=== PATIENT | female | born 1940 | race Caucasian/White ===

== ENCOUNTER → 2021-06-08 14:31 | Outpatient (BNVA) | payer OTHER, SELFPAY | PROVIDERS: Visit Provider Internal Medicine Cardiovascular Disease ==

== ENCOUNTER 2021-06-09 14:12 | Outpatient (REF) | payer OTHER, SELFPAY ==
[2021-06-09 14:28] LABS: MANUAL DIFF FLAG NO
[2021-06-09 14:57] LABS: Basophils Absolute Auto 0.1 X10*3/uL (0.0-0.2); Basophils Percent Auto 1.2 % (0-2); Eosinophils Absolute Auto 0.2 X10*3/uL (0.0-0.4); Eosinophils Percent Auto 3.5 % (0-4); Hematocrit 36.1 % (37-47); Hemoglobin 12.3 g/dl (12.0-16.0); Imm Gran Abs Auto 0.03 X10*3/uL (0.00-0.03); Imm Gran Pct Auto 0.6 % (0.0-0.4); Lymphocytes Absolute Auto 0.9 X10*3/uL (1.2-4.9); Lymphocytes Percent Auto 17.6 % (20-40); Mean Corpuscular HGB Conc 34.1 g/dl (31.0-35.0); Mean Corpuscular Hemoglobin 36.8 pg (27.0-33.0); Mean Corpuscular Volume 108.1 fL (80-98); Mean Platelet Volume 10.7 fL (9.4-12.3); Monocytes Absolute Auto 0.6 X10*3/uL (0.1-1.2); Monocytes Percent Auto 11.6 % (2-11); Neutrophils Absolute Auto 3.4 X10*3/uL (2.0-8.3); Neutrophils Percent Auto 65.5 % (45-73); Red Blood Count 3.34 X10*6/uL (4.20-5.50); Red Cell Distribution Width 14.2 % (11.0-16.0); White Blood Count 5.2 X10*3/uL (4.8-10.8)
[2021-06-09 14:58] LABS: Platelet Count 80 X10*3/uL (160-400)
[2021-06-09 15:02] LABS: INTERNATIONAL NORM RATIO 1.5 (0.9-1.1); Prothrombin Time 17.4 SEC (9.9-13.0)
[2021-06-09 15:05] LABS: Partial Thromboplastin Time 36.1 SEC (24.1-38.0)
[2021-06-09 15:24] LABS: Alanine Aminotransferase 32 U/L (0-31); Alkaline Phosphatase 168 U/L (39-117); Anion Gap 12 (12-20); Aspartate Amino Transferase 71 U/L (5-31); Bilirubin Total 5.5 mg/dL (0.0-1.0); Blood Urea Nitrogen 20 mg/dL (9-16); Calcium 8.7 mg/dL (8.4-10.2); Carbon Dioxide 25 mmol/L (22-29); Chloride 103 mmol/L (96-108); Estimated Glomerular Filt Rate 58; Glucose Random 79 mg/dL (60-115); Potassium 4.6 mmol/L (3.3-5.1); Sodium 135 mmol/L (135-145); Total Protein 6.2 g/dL (6.5-8.0)
[2021-06-14 16:01] VITALS: BMI 26.9
== END 2021-06-09 14:13 | disposition home or self-care (01) ==
LOC: HO.LAB 14:12
PROVIDERS: PCP Internal Medicine; Visit Provider Internal Medicine
DX: R18.8 Other ascites (principal); K74.60 Unspecified cirrhosis of liver; D69.6 Thrombocytopenia, unspecified
CPT/HCPCS: 36415; 80053; 85025; 85610; 85730

== ENCOUNTER 2021-06-16 07:35 | Day surgery (SDC) | payer OTHER, SELFPAY ==
--- NOTE | ~2021-06-16 | US_ITS ---
EXAMINATION: US ABDOMEN LIMITED CLINICAL INFORMATION: Abdominal distention. Check for ascites. COMPARISON: Previous abdominal ultrasound 2008 TECHNIQUE: Limited 4 quadrant abdominal ultrasound FINDINGS: There is a very small amount of ascites. Paracentesis was not performed. US/US abdomen limited IMPRESSION: Very small amount of ascites. Paracentesis not performed.
[2021-06-16 08:02] VITALS: BMI 26.9
--- NOTE | 2021-06-16 09:20 | HO.RADPN ---
RADIOLOGY Narrative Narrative: Very small amount of ascites. Paracentesis not performed.
== END 2021-06-16 09:42 | disposition home or self-care (01) ==
LOC: HO.SSS 07:35
PROVIDERS: PCP Internal Medicine; Visit Provider Internal Medicine
DX: R18.8 Other ascites (principal); K74.60 Unspecified cirrhosis of liver
CPT/HCPCS: 76705

== ENCOUNTER 2021-08-02 11:21 | Outpatient (REF) | payer OTHER, SELFPAY ==
--- NOTE | ~2021-08-02 | US_ITS ---
EXAMINATION: US ABDOMEN LIMITED CLINICAL INFORMATION: Ascites check. COMPARISON: None TECHNIQUE: 4 quadrant fluid check ultrasound FINDINGS: Submitted study demonstrates a moderate amount of simple ascites throughout all 4 quadrants largest in the left lower quadrant. US/US abdomen limited IMPRESSION: Moderate ascites as above.
== END 2021-08-02 11:22 | disposition home or self-care (01) ==
LOC: HO.HMGCX 11:21
PROVIDERS: PCP Internal Medicine; Visit Provider Internal Medicine
DX: R18.8 Other ascites (principal)
CPT/HCPCS: 76705

== ENCOUNTER 2021-08-18 15:12 | Outpatient (REF) | payer OTHER, SELFPAY ==
--- NOTE | ~2021-08-18 | XR_ITS ---
EXAMINATION: XR CHEST CLINICAL INFORMATION: Left chest back pain COMPARISON: None TECHNIQUE: 2 views of the chest were obtained. FINDINGS: There is nearly complete opacification of the left hemithorax likely related to large pleural effusion. Underlying mass cannot be excluded. Right hemithorax appears unremarkable. There is mild mediastinal shift to the right. No evidence of pulmonary edema. No pneumothorax. Patient status post bilateral breast implants. XR/XR chest 2V IMPRESSION: Opacification majority of the left hemithorax likely related to large pleural effusion.
== END 2021-08-18 15:13 | disposition home or self-care (01) ==
LOC: HO.XRAY 15:12
PROVIDERS: PCP Internal Medicine; Visit Provider Internal Medicine
DX: R07.89 Other chest pain (principal)
CPT/HCPCS: 71046

== ENCOUNTER 2021-08-18 18:11 | Inpatient (IN) | payer OTHER, SELFPAY ==
--- NOTE | ~2021-08-18 | XR_ITS ---
EXAMINATION: XR CHEST CLINICAL INFORMATION: Status post left thoracentesis COMPARISON: None TECHNIQUE: AP upright portable view of the chest was obtained at 12:32 PM. FINDINGS: There is moderate opacification left lung from pleural effusion and underlying atelectasis. No visible pneumothorax seen. The right lung is expanded and clear. Heart size is normal. Pulmonary vascularity is within normal limits. There are bilateral augmented breasts with calcification of the capsule. XR/XR chest 1V IMPRESSION: Moderate left pleural effusion with underlying atelectasis. There is no visible pneumothorax.
--- NOTE | ~2021-08-18 | US_ITS ---
EXAMINATION: ULTRASOUND GUIDANCE FOR THORACENTESIS CLINICAL INFORMATION: Left pleural effusion. COMPARISON: None TECHNIQUE: Ultrasound guidance was provided to Dr. Clay Sarkar in the ER for therapeutic and diagnostic paracentesis. FINDINGS: Ultrasound images reveal moderate to large left pleural effusion. US/US thoracentesis IMPRESSION: Moderate to large left pleural effusion. Ultrasound guidance was provided to ICU Dr. Sarkar for diagnostic and therapeutic left thoracentesis in the ED department. Approximately 1.8 L of dark red fluid was drained.
--- NOTE | ~2021-08-18 | CT_ITS ---
EXAMINATION: CT CHEST WITHOUT CONTRAST CLINICAL INFORMATION: Pleural effusion. Concern for chest mass. COMPARISON: Chest x-ray 08/18/2021 TECHNIQUE: Multidetector volumetric CT imaging of the chest was done. Axial MIP volume rendering provided. Sagittal and coronal reformatted images were obtained. This CT examination was performed using dose optimization techniques as appropriate, variously including the following: *Automated exposure control *Adjustment of mA and/or kV according to patient size (this includes techniques or standardized protocols for targeted exams where dose is matched to indication/reason for exam; i.e. extremities or head) *Use of iterative reconstruction technique DLP: 278 mGy-cm FINDINGS: LUNGS: There is near complete atelectasis of left lung. There is a small region of aeration remaining at the left lung apex. The lung is collapsed around the left roe. Assessment of a left hilar mass therefore is limited without IV contrast.. No obvious mass seen in the left hilum The right lung remains normally aerated MEDIASTINUM: No mediastinal mass or significant lymphadenopathy. The heart size is normal. No pericardial effusion. Small volume of coronary artery calcifications. No aneurysm of aorta. Moderate volume of calcifications of aorta and origin of great vessels. PLEURA: Large volume left pleural effusion. There is no right pleural effusion. AXILLA: No lymphadenopathy. Bilateral breast implants present. UPPER ABDOMEN: Large volume of abdominal ascites. The surface of liver is mildly nodular suggesting underlying cirrhosis. OSSEOUS STRUCTURES: Multilevel degenerative spondylosis of the spine. CT/CT chest wo con IMPRESSION: 1. Near-complete atelectasis of the left lung. No obvious mass seen. Limited assessment of roe due to no IV contrast use. 2. Large volume left pleural effusion. 3. Large volume of abdominal ascites. Nodular contour of liver suggesting underlying cirrhosis. Fleischner guidelines were followed.
[2021-08-18 18:30] VITALS: BP 160/68; BP 165/73; PULSE 130; PULSE 83; RESP 16; TEMP 37; O2SAT 97; BMI 29.9
--- NOTE | 2021-08-18 18:38 | ECG_ITS ---
Test Reason : Dyspnea Blood Pressure : / mmHG Vent. Rate : 078 BPM Atrial Rate : 078 BPM P-R Int : 156 ms QRS Dur : 078 ms QT Int : 374 ms P-R-T Axes : 056 006 041 degrees QTc Int : 426 ms Normal sinus rhythm Normal ECG When compared with ECG of 16-FEB-2002 13:25, No significant change was found Referred By: Pushpa Parker Electronically Signed By:JESSE ORANTES MD
--- NOTE | 2021-08-18 19:24 | ED_ITS ---
HPI - SOB/Dyspnea General Chief Complaint: Dyspnea <RONI Metzger - Last Filed: 08/18/21 23:16> Stated Complaint: pleural effusion <RONI Metzger Last Filed: 08/18/21 23:16> Time Seen by Provider: 08/18/21 18:15 <RONI Metzger - Last Filed: 08/18/21 23:16> Source: patient and EMS <RONI Metzger - Last Filed: 08/18/21 23:16> Mode of arrival: EMS <RONI Metzger - Last Filed: 08/18/21 23:16> History of Present Illness HPI Narrative: 81-year-old female with a past medical history of aortic stenosis, cirrhosis, ascites s/p multiple paracentesis', IBS, presenting to the ED sent in from PCPs office for noted left-sided pleural effusion on outpatient CXR today. Patient reports left-sided chest wall pain and SOB x2 weeks. Also reports increasing abdominal distension x3 weeks, scheduled for outpatient paracentesis here at agency on Saturday. Reports abdominal discomfort and diarrhea Denies fever, chills, vomiting, dysuria/hematuria <RONI Metzger - Last Filed: 08/18/21 23:16> MD elicited complaint: shortness of breath, cough and pain with inspiration <RONI Metzger - Last Filed: 08/18/21 23:16> Onset (ago): week(s) <RONI Metzger - Last Filed: 08/18/21 23:16> Related Data Home Medications: Home Medications Medication Instructions Recorded Confirmed furosemide 40 mg tablet 40 mg PO DAILY 06/08/21 08/18/21 lactulose 10 gram/15 mL oral 15 ml PO TID 06/13/21 08/18/21 solution alprazolam 0.25 mg tablet 0.25 mg PO DAILY PRN 06/14/21 08/18/21 multivitamin 1 tab PO DAILY 06/14/21 08/18/21 acetaminophen 500 mg tablet 500 mg PO Q6H PRN 08/18/21 08/18/21 hydroxyzine HCl 25 mg tablet 1 tab PO TID PRN 08/18/21 08/18/21 spironolactone 100 mg tablet 1 tab PO DAILY 08/18/21 08/18/21 vitamin B complex 1 tab PO DAILY 08/18/21 08/18/21 <RONI Metzger - Last Filed: 08/18/21 23:16> Allergies/Adverse Reactions: Allergies Allergy/AdvReac Type Severity Reaction Status Date / Time latex Allergy Intermediate Unknown Verified 06/16/21 08:01 <RONI Metzger - Last Filed: 08/18/21 23:16> Review of Systems Review of Systems: Constitutional: No Fever, No Chills, No Fatigue, No Malaise ENT/Mouth: No Ear Pain, No Nasal Congestion, No sore throat, No Rhinorrhea, No Swallowing Difficulty Eyes: No Eye Pain, No Swelling, No Redness, No Discharge Cardiovascular: +Chest Pain, +SOB, No Dyspnea on Exertion, No Orthopnea, No Edema, No Palpitations Respiratory: + Cough, No Sputum, + Dyspnea Gastrointestinal: No Nausea, No Vomiting, No Diarrhea, No Constipation, + Abdominal pain Genitourinary: No Dysuria, No Urinary Frequency, No Hematuria, No Flank Pain Musculoskeletal: No joint pain, No Myalgias, No Joint Swelling Skin: No Skin Lesions, No rash Neuro: No Weakness, No Dizziness, No Headache <RONI Metzger - Last Filed: 08/18/21 23:16> Yes all other systems are reviewed and are negative <RONI Metzger - Last Filed: 08/18/21 23:16> [facility] Past Medical History Attestation statement: The following information was validated with the patient. <RONI Metzger - Last Filed: 08/18/21 23:16> Medical History: Medical History (Updated 08/18/21 @ 21:22 by RONI Metzger) Aortic stenosis Cirrhosis Irritable bowel <RONI Metzger - Last Filed: 08/18/21 23:16> Surgical History: Surgical History History of colonoscopy <RONI Metzger Last Filed: 08/18/21 23:16> Family History Family History: Family History Sister CAD (coronary artery disease) <RONI Metzger Last Filed: 08/18/21 23:16> Social History Social History: Social History Patient Tobacco Use Status: Never used Tobacco Advance Directives: No <RONI Metzger - Last Filed: 08/18/21 23:16> Physical Exam Vital Signs: Vital Signs: Last Vital Signs Temp 98.6 F 08/18/21 18:30 Pulse 83 08/18/21 18:30 Resp 16 08/18/21 18:30 BP 160/68 H 08/18/21 18:30 Pulse Ox 97 08/18/21 18:30 Oxygen Flow Rate 2 08/18/21 18:30 BMI result Body Mass Index 29.9 <RONI Metzger - Last Filed: 08/18/21 23:16> Vital Signs: Last Vital Signs Temp 98.6 F 08/18/21 18:30 Pulse 83 08/18/21 18:30 Resp 16 08/18/21 18:30 BP 160/68 H 08/18/21 18:30 Pulse Ox 97 08/18/21 18:30 Oxygen Flow Rate 2 08/18/21 18:30 BMI result Body Mass Index 29.9 <Elvia Carver MD - Last Filed: 08/18/21 22:59> Const: General: cooperative and no acute distress <RONI Metzger - Last Filed: 08/18/21 23:16> Orientation/consciousness: patient oriented x3 <RONI Metzger - Last Filed: 08/18/21 23:16> Limitations: no limitations <RONI Metzger - Last Filed: 08/18/21 23:16> HENMT: Head: Yes normal to inspection <RONI Metzger - Last Filed: 08/18/21 23:16> Ears: hearing grossly normal bilaterally <RONI Metzger - Last Filed: 08/18/21 23:16> General nose exam: Normal external nose present <RONI Metzger - Last Filed: 08/18/21 23:16> Face and sinus: Yes normal facial exam <RONI Metzger - Last Filed: 08/18/21 23:16> Eyes: General: appearance normal, both eyes and all related structures <RONI Metzger - Last Filed: 08/18/21 23:16> EOM: EOMs intact bilaterally <Pushpa Keith [place] - Last Filed: 08/18/21 23:16> Neck: Neck: Yes normal visual inspection and Yes no meningeal signs <Pushpa Keith [place] - Last Filed: 08/18/21 23:16> Resp: Auscultation: diminished lung sounds on the left throughout <Pushpa Parker [place] - Last Filed: 08/18/21 23:16> Cardio: Rate: regular rate <Pushpa Keith [place] - Last Filed: 08/18/21 23:16> Heart sounds: S1 normal heart sound present and S2 normal heart sound present <Pushpa Parker [place] - Last Filed: 08/18/21 23:16> GI: Other: +ascites <Pushpa Keith [place] - Last Filed: 08/18/21 23:16> Inspection: Yes normal to inspection <Pushpa Parker [place] - Last Filed: 08/18/21 23:16> Palpation (GI): Soft to palpation, nontender, no guarding and not rigid < Pushpa Keith [place] - Last Filed: 08/18/21 23:16> Skin: Rashes: no rashes <Pushpa Parker [place] - Last Filed: 08/18/21 23:16> Wounds: no wounds <Pushpa Keith [place] - Last Filed: 08/18/21 23:16> Neuro: General: patient oriented x3 and no meningeal signs <Pushpa Parker [place] - Last Filed: 08/18/21 23:16> Gait exam (Neuro): Normal gait present <Pushpa Parker [place] - Last Filed: 08/18/21 23:16> Extrem: General: Yes normal to inspection <Pushpa Parker [place] - Last Filed: 08/18/21 23:16> Course Course Course Narrative: -2026--mild leukocytosis of 12.2 > will empirically cover for possible PNA. H&H stable. INR 1.5. BUN 28 likely from fluid overload. Lactic acid negative, patient does not meet severe sepsis criteria -bilirubin/AST/alk-phos is chronically elevated. Troponin mildly elevated at 5.5 > will obtain 3 hour repeat XR chest 2V IMPRESSION: Opacification majority of the left hemithorax likely related to large pleural effusion. -2057--case discussed with hospitalist, plan for admission. Prior to admission will perform therapeutic paracentesis in the ED 2150-- CT chest wo con IMPRESSION: 1. Near-complete atelectasis of the left lung. No obvious mass seen. Limited assessment of roe due to no IV contrast use. 2. Large volume left pleural effusion. 3. Large volume of abdominal ascites. Nodular contour of liver suggesting underlying cirrhosis. -2314--paracentesis performed by Dr. Carver. 2,800 cc peritoneal fluid drained. Sent for studies <RONI Metzger - Last Filed: 08/18/21 23:16> MDM - SOB/Dyspnea MDM Narrative Medical decision making narrative: 81-year-old female with a past medical history of aortic stenosis, cirrhosis, ascites s/p multiple paracentesis', IBS, presenting to the ED sent in from PCPs office for noted left-sided pleural effusion on outpatient CXR today. Patient reports left-sided chest wall pain and SOB x2 weeks & abdominal distension x3 weeks. On exam satting 94% on RA increased to 97% on 2L NC, NAD, diminished/absent lung sounds in the left lung field, abdominal ascites noted, abdomen soft/nontender, no rebound or guarding. No LE edema. 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 Low concern for SBP with abdomen soft and nontender. Rule out underlying mass/lesion vs pneumonia. low concern for severe sepsis at this time Plan: EKG, labs, UA, dry CT chest, anticipated admission <RONI Metzger - Last Filed: 08/18/21 23:16> Differential Diagnosis Differential diagnosis: Likely congestive heart failure, pneumonia and pleural effusion <RONI Metzger - Last Filed: 08/18/21 23:16> Medical Records Attestation: I reviewed the patient's medical records. <RONI Metzger - Last Filed: 08/18/21 23:16> Lab Data Attestation: I reviewed the patient's lab results. <RONI Metzger - Last Filed: 08/18/21 23:16> Result diagrams: : 08/18/21 19:15 08/18/21 19:15 <RONI Metzger - Last Filed: 08/18/21 23:16> Labs: Lab Results 08/18/21 08/18/21 08/18/21 Range/Units 19:15 19:15 19:15 WBC 12.2 H (4.8-10.8) X10*3/uL RBC 3.41 L (4.20-5.50) X10*6/uL Hgb 12.4 (12.0-16.0) g/dl Hct 35.8 L (37.0-47.0) % MCV 105.0 H (80.0-98.0) fL MCH 36.4 H (27.0-33.0) pg MCHC 34.6 (31.0-35.0) g/dl RDW 14.6 (11.0-16.0) % Plt Count 138 L (160-400) X10*3/uL MPV 9.6 (9.4-12.3) fL Immature Gran % (Auto) 1.9 H (0.0-0.4) % Neut % (Auto) 69.0 (45-73) % Lymph % (Auto) 9.6 L (20-40) % Stafford % (Auto) 17.8 H (2-11) % Eos % (Auto) 1.0 (0-4) % Baso % (Auto) 0.7 (0-2) % Lymph # (Auto) 1.2 (1.2-4.9) X10*3/uL Stafford # (Auto) 2.2 H (0.1-1.2) X10*3/uL Eos # (Auto) 0.1 (0.0-0.4) X10*3/uL Baso # (Auto) 0.1 (0.0-0.2) X10*3/uL Abs Immat Gran (auto) 0.23 H (0.00-0.03) X10*3/uL Absolute Neuts (auto) 8.4 H (2.0-8.3) x10*3/uL Absolute Nucleated RBC 0.000 (0.0-0.012) X10*3/uL Nucleated RBC % (auto) 0.0 (0.0-0.2) /100WBC Smear Tech's Comments VERIFIED PT (9.9-13.0) SEC INR (0.9-1.1) APTT (24.1-38.0) SEC Sodium 132 L (135-145) mmol/L Potassium 4.9 (3.3-5.1) mmol/L Chloride 104 (96-108) mmol/L Carbon Dioxide 21 L (22-29) mmol/L Anion Gap 12 (12-20) BUN 28 H (9-16) mg/dL Creatinine 1.17 (0.5-1.4) mg/dL Estim Creat Clear Calc 37.6 Estimated GFR 45 Random Glucose 104 (60-115) mg/dL Lactic Acid (0.5-2.0) mmol/L Calcium 8.3 L (8.4-10.2) mg/dL Magnesium 2.4 (1.6-2.6) mg/dL Total Bilirubin 6.3 H (0.0-1.0) mg/dL Direct Bilirubin 4.0 H (0.0-0.5) mg/dL AST 40 H D (5-31) U/L ALT 25 (0-31) U/L Alkaline Phosphatase 124 H D (39-117) U/L Troponin I High Sens 5.5 (<3.5-17.0) ng/L B-Natriuretic Peptide (<100) pg/mL Total Protein 6.1 L (6.5-8.0) g/dL Albumin 2.7 L (3.5-5.0) g/dL Lipase 34 (8-78) U/L COVID-19 (KAYLI) (Negative) COVID-19 Clin Com 08/18/21 08/18/21 08/18/21 Range/Units 19:15 19:15 19:15 WBC (4.8-10.8) X10*3/uL RBC (4.20-5.50) X10*6/uL Hgb (12.0-16.0) g/dl Hct (37.0-47.0) % MCV (80.0-98.0) fL MCH (27.0-33.0) pg MCHC (31.0-35.0) g/dl RDW (11.0-16.0) % Plt Count (160-400) X10*3/uL MPV (9.4-12.3) fL Immature Gran % (Auto) (0.0-0.4) % Neut % (Auto) (45-73) % Lymph % (Auto) (20-40) % Stafford % (Auto) (2-11) % Eos % (Auto) (0-4) % Baso % (Auto) (0-2) % Lymph # (Auto) (1.2-4.9) X10*3/uL Stafford # (Auto) (0.1-1.2) X10*3/uL Eos # (Auto) (0.0-0.4) X10*3/uL Baso # (Auto) (0.0-0.2) X10*3/uL Abs Immat Gran (auto) (0.00-0.03) X10*3/uL Absolute Neuts (auto) (2.0-8.3) x10*3/uL Absolute Nucleated RBC (0.0-0.012) X10*3/uL Nucleated RBC % (auto) (0.0-0.2) /100WBC Smear Tech's Comments PT 17.4 H (9.9-13.0) SEC INR 1.5 H (0.9-1.1) APTT 36.9 (24.1-38.0) SEC Sodium (135-145) mmol/L Potassium (3.3-5.1) mmol/L Chloride (96-108) mmol/L Carbon Dioxide (22-29) mmol/L Anion Gap (12-20) BUN (9-16) mg/dL Creatinine (0.5-1.4) mg/dL Estim Creat Clear Calc Estimated GFR Random Glucose (60-115) mg/dL Lactic Acid (0.5-2.0) mmol/L Calcium (8.4-10.2) mg/dL Magnesium (1.6-2.6) mg/dL Total Bilirubin (0.0-1.0) mg/dL Direct Bilirubin (0.0-0.5) mg/dL AST (5-31) U/L ALT (0-31) U/L Alkaline Phosphatase (39-117) U/L Troponin I High Sens (<3.5-17.0) ng/L B-Natriuretic Peptide 81 (<100) pg/mL Total Protein (6.5-8.0) g/dL Albumin (3.5-5.0) g/dL Lipase (8-78) U/L COVID-19 (KAYLI) Negative (Negative) COVID-19 Clin Com See Note 08/18/21 Range/Units 19:47 WBC (4.8-10.8) X10*3/uL RBC (4.20-5.50) X10*6/uL Hgb (12.0-16.0) g/dl Hct (37.0-47.0) % MCV (80.0-98.0) fL MCH (27.0-33.0) pg MCHC (31.0-35.0) g/dl RDW (11.0-16.0) % Plt Count (160-400) X10*3/uL MPV (9.4-12.3) fL Immature Gran % (Auto) (0.0-0.4) % Neut % (Auto) (45-73) % Lymph % (Auto) (20-40) % Stafford % (Auto) (2-11) % Eos % (Auto) (0-4) % Baso % (Auto) (0-2) % Lymph # (Auto) (1.2-4.9) X10*3/uL Stafford # (Auto) (0.1-1.2) X10*3/uL Eos # (Auto) (0.0-0.4) X10*3/uL Baso # (Auto) (0.0-0.2) X10*3/uL Abs Immat Gran (auto) (0.00-0.03) X10*3/uL Absolute Neuts (auto) (2.0-8.3) x10*3/uL Absolute Nucleated RBC (0.0-0.012) X10*3/uL Nucleated RBC % (auto) (0.0-0.2) /100WBC Smear Tech's Comments PT (9.9-13.0) SEC INR (0.9-1.1) APTT (24.1-38.0) SEC Sodium (135-145) mmol/L Potassium (3.3-5.1) mmol/L Chloride (96-108) mmol/L Carbon Dioxide (22-29) mmol/L Anion Gap (12-20) BUN (9-16) mg/dL Creatinine (0.5-1.4) mg/dL Estim Creat Clear Calc Estimated GFR Random Glucose (60-115) mg/dL Lactic Acid 1.8 (0.5-2.0) mmol/L Calcium (8.4-10.2) mg/dL Magnesium (1.6-2.6) mg/dL Total Bilirubin (0.0-1.0) mg/dL Direct Bilirubin (0.0-0.5) mg/dL AST (5-31) U/L ALT (0-31) U/L Alkaline Phosphatase (39-117) U/L Troponin I High Sens (<3.5-17.0) ng/L B-Natriuretic Peptide (<100) pg/mL Total Protein (6.5-8.0) g/dL Albumin (3.5-5.0) g/dL Lipase (8-78) U/L COVID-19 (KAYLI) (Negative) COVID-19 Clin Com <RONI Metzger - Last Filed: 08/18/21 23:16> Lab Results 08/18/21 08/18/21 08/18/21 Range/Units 19:15 19:15 19:15 WBC 12.2 H (4.8-10.8) X10*3/uL RBC 3.41 L (4.20-5.50) X10*6/uL Hgb 12.4 (12.0-16.0) g/dl Hct 35.8 L (37.0-47.0) % MCV 105.0 H (80.0-98.0) fL MCH 36.4 H (27.0-33.0) pg MCHC 34.6 (31.0-35.0) g/dl RDW 14.6 (11.0-16.0) % Plt Count 138 L (160-400) X10*3/uL MPV 9.6 (9.4-12.3) fL Immature Gran % (Auto) 1.9 H (0.0-0.4) % Neut % (Auto) 69.0 (45-73) % Lymph % (Auto) 9.6 L (20-40) % Stafford % (Auto) 17.8 H (2-11) % Eos % (Auto) 1.0 (0-4) % Baso % (Auto) 0.7 (0-2) % Lymph # (Auto) 1.2 (1.2-4.9) X10*3/uL Stafford # (Auto) 2.2 H (0.1-1.2) X10*3/uL Eos # (Auto) 0.1 (0.0-0.4) X10*3/uL Baso # (Auto) 0.1 (0.0-0.2) X10*3/uL Abs Immat Gran (auto) 0.23 H (0.00-0.03) X10*3/uL Absolute Neuts (auto) 8.4 H (2.0-8.3) x10*3/uL Absolute Nucleated RBC 0.000 (0.0-0.012) X10*3/uL Nucleated RBC % (auto) 0.0 (0.0-0.2) /100WBC Smear Tech's Comments VERIFIED PT (9.9-13.0) SEC INR (0.9-1.1) APTT (24.1-38.0) SEC Sodium 132 L (135-145) mmol/L Potassium 4.9 (3.3-5.1) mmol/L Chloride 104 (96-108) mmol/L Carbon Dioxide 21 L (22-29) mmol/L Anion Gap 12 (12-20) BUN 28 H (9-16) mg/dL Creatinine 1.17 (0.5-1.4) mg/dL Estim Creat Clear Calc 37.6 Estimated GFR 45 Random Glucose 104 (60-115) mg/dL Lactic Acid (0.5-2.0) mmol/L Calcium 8.3 L (8.4-10.2) mg/dL Magnesium 2.4 (1.6-2.6) mg/dL Total Bilirubin 6.3 H (0.0-1.0) mg/dL Direct Bilirubin 4.0 H (0.0-0.5) mg/dL AST 40 H D (5-31) U/L ALT 25 (0-31) U/L Alkaline Phosphatase 124 H D (39-117) U/L Troponin I High Sens 5.5 (<3.5-17.0) ng/L B-Natriuretic Peptide (<100) pg/mL Total Protein 6.1 L (6.5-8.0) g/dL Albumin 2.7 L (3.5-5.0) g/dL Lipase 34 (8-78) U/L COVID-19 (KAYLI) (Negative) COVID-19 Clin Com 08/18/21 08/18/21 08/18/21 Range/Units 19:15 19:15 19:15 WBC (4.8-10.8) X10*3/uL RBC (4.20-5.50) X10*6/uL Hgb (12.0-16.0) g/dl Hct (37.0-47.0) % MCV (80.0-98.0) fL MCH (27.0-33.0) pg MCHC (31.0-35.0) g/dl RDW (11.0-16.0) % Plt Count (160-400) X10*3/uL MPV (9.4-12.3) fL Immature Gran % (Auto) (0.0-0.4) % Neut % (Auto) (45-73) % Lymph % (Auto) (20-40) % Stafford % (Auto) (2-11) % Eos % (Auto) (0-4) % Baso % (Auto) (0-2) % Lymph # (Auto) (1.2-4.9) X10*3/uL Stafford # (Auto) (0.1-1.2) X10*3/uL Eos # (Auto) (0.0-0.4) X10*3/uL Baso # (Auto) (0.0-0.2) X10*3/uL Abs Immat Gran (auto) (0.00-0.03) X10*3/uL Absolute Neuts (auto) (2.0-8.3) x10*3/uL Absolute Nucleated RBC (0.0-0.012) X10*3/uL Nucleated RBC % (auto) (0.0-0.2) /100WBC Smear Tech's Comments PT 17.4 H (9.9-13.0) SEC INR 1.5 H (0.9-1.1) APTT 36.9 (24.1-38.0) SEC Sodium (135-145) mmol/L Potassium (3.3-5.1) mmol/L Chloride (96-108) mmol/L Carbon Dioxide (22-29) mmol/L Anion Gap (12-20) BUN (9-16) mg/dL Creatinine (0.5-1.4) mg/dL Estim Creat Clear Calc Estimated GFR Random Glucose (60-115) mg/dL Lactic Acid (0.5-2.0) mmol/L Calcium (8.4-10.2) mg/dL Magnesium (1.6-2.6) mg/dL Total Bilirubin (0.0-1.0) mg/dL Direct Bilirubin (0.0-0.5) mg/dL AST (5-31) U/L ALT (0-31) U/L Alkaline Phosphatase (39-117) U/L Troponin I High Sens (<3.5-17.0) ng/L B-Natriuretic Peptide 81 (<100) pg/mL Total Protein (6.5-8.0) g/dL Albumin (3.5-5.0) g/dL Lipase (8-78) U/L COVID-19 (KAYLI) Negative (Negative) COVID-19 Clin Com See Note 08/18/21 Range/Units 19:47 WBC (4.8-10.8) X10*3/uL RBC (4.20-5.50) X10*6/uL Hgb (12.0-16.0) g/dl Hct (37.0-47.0) % MCV (80.0-98.0) fL MCH (27.0-33.0) pg MCHC (31.0-35.0) g/dl RDW (11.0-16.0) % Plt Count (160-400) X10*3/uL MPV (9.4-12.3) fL Immature Gran % (Auto) (0.0-0.4) % Neut % (Auto) (45-73) % Lymph % (Auto) (20-40) % Stafford % (Auto) (2-11) % Eos % (Auto) (0-4) % Baso % (Auto) (0-2) % Lymph # (Auto) (1.2-4.9) X10*3/uL Stafford # (Auto) (0.1-1.2) X10*3/uL Eos # (Auto) (0.0-0.4) X10*3/uL Baso # (Auto) (0.0-0.2) X10*3/uL Abs Immat Gran (auto) (0.00-0.03) X10*3/uL Absolute Neuts (auto) (2.0-8.3) x10*3/uL Absolute Nucleated RBC (0.0-0.012) X10*3/uL Nucleated RBC % (auto) (0.0-0.2) /100WBC Smear Tech's Comments PT (9.9-13.0) SEC INR (0.9-1.1) APTT (24.1-38.0) SEC Sodium (135-145) mmol/L Potassium (3.3-5.1) mmol/L Chloride (96-108) mmol/L Carbon Dioxide (22-29) mmol/L Anion Gap (12-20) BUN (9-16) mg/dL Creatinine (0.5-1.4) mg/dL Estim Creat Clear Calc Estimated GFR Random Glucose (60-115) mg/dL Lactic Acid 1.8 (0.5-2.0) mmol/L Calcium (8.4-10.2) mg/dL Magnesium (1.6-2.6) mg/dL Total Bilirubin (0.0-1.0) mg/dL Direct Bilirubin (0.0-0.5) mg/dL AST (5-31) U/L ALT (0-31) U/L Alkaline Phosphatase (39-117) U/L Troponin I High Sens (<3.5-17.0) ng/L B-Natriuretic Peptide (<100) pg/mL Total Protein (6.5-8.0) g/dL Albumin (3.5-5.0) g/dL Lipase (8-78) U/L COVID-19 (KAYLI) (Negative) COVID-19 Clin Com <Elvia Carver MD - Last Filed: 08/18/21 22:59> ECG Data Attestation: I personally reviewed and interpreted this ECG as follows: <RONI Metzger - Last Filed: 08/18/21 23:16> ECG interpretation date: 08/18/21 <RONI Metzger - Last Filed: 08/18/21 23:16> ECG interpretation time: 19:27 <RONI Metzger - Last Filed: 08/18/21 23:16> Interpretation: EKG normal sinus rhythm at a rate of 78. Pr interval 156. QRS 78. QTC 426. Nonischemic/no STEMI <RONI Metzger - Last Filed: 08/18/21 23:16> Procedures Paracentesis Time Out Performed: Yes <Elvia Carver MD - Last Filed: 08/18/21 22:59> Local Anesthetic: lidocaine 1% <Elvia Carver MD - Last Filed: 08/18/21 22:59> Amount of anesthesia used (mL): 5 <Elvia Carver MD - Last Filed: 08/18/21 22:59> Fluid: clear and sent to lab for analysis <Elvia Carver MD - Last Filed: 08/18/21 22:59> Post Procedure Exam: awake, alert <Elvia Carver MD - Last Filed: 08/18/21 22:59> Patient Tolerated Procedure: well <Elvia Carver MD - Last Filed: 08/18/21 22:59> Complications: none and other <Elvia Carver MD - Last Filed: 08/18/21 22:59> Critical Care Time Critical Care Time Critical Care Time: Yes <RONI Metzger - Last Filed: 08/18/21 23:16> Total Critical Care Time: 60 <RONI Metzger - Last Filed: 08/18/21 23:16> Attestation: I have personally provided critical care time exclusive of time spent on separately billable procedures. Time includes review of lab data, radiology results, discussion with consultants, and monitoring for potential decompens ation. Intervention performed as documented. <ORNI Metzger - Last Filed: 08/18/21 23:16> Discharge Plan Discharge Clinical Impression: Pleural effusion Ascites Qualifiers: Ascites type: other type Qualified Code(s): R18.8 - Other ascites <RONI Metzger - Last Filed: 08/18/21 23:16> Patient Disposition: Admitted As Inpatient <RONI Metzger - Last Filed: 08/18/21 23:16>
[2021-08-18 19:44] LABS: Basophils Absolute Auto 0.1 X10*3/uL (0.0-0.2); Basophils Percent Auto 0.7 % (0-2); Eosinophils Absolute Auto 0.1 X10*3/uL (0.0-0.4); Hematocrit 35.8 % (37.0-47.0); Hemoglobin 12.4 g/dl (12.0-16.0); Imm Gran Abs Auto 0.23 X10*3/uL (0.00-0.03); Imm Gran Pct Auto 1.9 % (0.0-0.4); Lymphocytes Absolute Auto 1.2 X10*3/uL (1.2-4.9); Lymphocytes Percent Auto 9.6 % (20-40); MANUAL DIFF FLAG SCAN; Mean Corpuscular HGB Conc 34.6 g/dl (31.0-35.0); Mean Corpuscular Hemoglobin 36.4 pg (27.0-33.0); Mean Platelet Volume 9.6 fL (9.4-12.3); Monocytes Absolute Auto 2.2 X10*3/uL (0.1-1.2); Monocytes Percent Auto 17.8 % (2-11); Neutrophils Absolute Auto 8.4 x10*3/uL (2.0-8.3); Platelet Count 138 X10*3/uL (160-400); Red Blood Count 3.41 X10*6/uL (4.20-5.50); Red Cell Distribution Width 14.6 % (11.0-16.0); SCAN SMEAR FLAG 1; White Blood Count 12.2 X10*3/uL (4.8-10.8)
[2021-08-18 19:51] LABS: INTERNATIONAL NORM RATIO 1.5 (0.9-1.1); Prothrombin Time 17.4 SEC (9.9-13.0)
[2021-08-18 19:53] LABS: Partial Thromboplastin Time 36.9 SEC (24.1-38.0)
[2021-08-18 19:56] LABS: COVID-19 Test Negative (Negative)
[2021-08-18 20:12] LABS: Lactic Acid 1.8 mmol/L (0.5-2.0)
[2021-08-18 20:17] LABS: Alanine Aminotransferase 25 U/L (0-31); Albumin Level 2.7 g/dL (3.5-5.0); Alkaline Phosphatase 124 U/L (39-117); Anion Gap 12 (12-20); Aspartate Amino Transferase 40 U/L (5-31); Bilirubin Total 6.3 mg/dL (0.0-1.0); Blood Urea Nitrogen 28 mg/dL (9-16); Calcium 8.3 mg/dL (8.4-10.2); Carbon Dioxide 21 mmol/L (22-29); Chloride 104 mmol/L (96-108); Creatinine Clr Calc Pharmacy 37.6; Estimated Glomerular Filt Rate 45; Glucose Random 104 mg/dL (60-115); Lipase 34 U/L (8-78); Magnesium 2.4 mg/dL (1.6-2.6); Potassium 4.9 mmol/L (3.3-5.1); Sodium 132 mmol/L (135-145); Total Protein 6.1 g/dL (6.5-8.0)
[2021-08-18 20:19] LABS: Troponin-I High Sensitivity 5.5 ng/L (<3.5-17.0)
[2021-08-18 20:20] LABS: B Type Natriuretic Peptide 81 pg/mL (<100)
[2021-08-18 20:26] LABS: SLIDE REVIEW VERIFIED
--- NOTE | 2021-08-18 20:39 | PC.NURSE ---
PATIENT REFUSED SECOND SETS OF BLOOD CULTURE ,GLORY ISLAS IS AWARE .
--- NOTE | 2021-08-18 20:52 | PHA.MEDREC ---
Addendum entered by Suki Bell [facility] 08/19/21 10:05: CALLED [facility] TO VERIFY MED LIST. Original Note: Pharmacy Consult ? Medication Reconciliation Pharmacy has completed the medication reconciliation. Spoke with patient in ED. [facility] closed but will follow up in AM with pharmacy.
--- NOTE | 2021-08-18 21:01 | PM.IMHP ---
History of Present Illness Date of Service: 08/18/21 Chief Complaint: Abdominal distension 81-year-old female with a past medical history of aortic stenosis, anxiety, non alcoholic liver cirrhosis-decompensated with ascites-receives periodic therapeutic paracentesis, IBS presented to the hospital with a chief complaint of chest pain. Patient reports that she has been having chest pain over the past 2 weeks, it on the left side, worsens with deep inspiration and coughing; sharp in nature; has seen the PCP as outpatient who did a chest x-ray and noted to have large pleural effusion on the left side and recommended to go to the ER for further evaluation. Patient reports that she has been taking her diuretics at home; and has regular paracentesis; 1 scheduled on 08/21/21 at [facility]; Denies any abdominal pain Denies any fever chills. Reports cough-no sputum production. Denies any urinary symptoms. Review of all other systems is negative except mentioned above ER course: Per ER team patient noted to be saturating 92% on room air; EKG was nonischemic; diminished lung sounds on the left side; abdomen is distended and phone; planned for therapeutic paracentesis in the ER. ER team also mentioned that no concern for SBP; admitted for further management. [facility] Medical History (Updated 08/18/21 @ 21:22 by RONI Metzger) Aortic stenosis Cirrhosis Irritable bowel Family History Sister CAD (coronary artery disease) Surgical History History of colonoscopy Social History Patient Tobacco Use Status: Never used Tobacco Advance Directives: No Meds Allergies Allergy/AdvReac Type Severity Reaction Status Date / Time latex Allergy Intermediate Unknown Verified 06/16/21 08:01 Active Medications: Current Medications Piperacillin Sod/Tazobactam (Sod 3.375 gm/ Sodium Chloride) 50 mls @ 100 mls/hr IV ONCE ONE Stop: 08/18/21 21:14 Pharmacy Consult (Consult Rx Perform Med Rec) 1 each MISCELLANE ONCE PRN PRN Reason: Consult order Home Medications Medication Instructions Recorded Confirmed Last Taken Type furosemide 40 mg tablet 40 mg PO DAILY 06/08/21 08/18/2108/18/22 History lactulose 10 gram/15 mL oral 15 ml PO TID 06/13/21 08/18/21 08/18/21 History solution alprazolam 0.25 mg tablet 0.25 mg PO DAILY PRN 06/14/21 08/18/21 08/18/21 History multivitamin 1 tab PO DAILY 06/14/21 08/18/21 08/18/21 History acetaminophen 500 mg tablet 500 mg PO Q6H PRN 08/18/21 08/18/21 08/18/21 History hydroxyzine HCl 25 mg tablet 1 tab PO TID PRN 08/18/21 08/18/21 08/18/21 History spironolactone 100 mg tablet 1 tab PO DAILY 08/18/21 08/18/21 08/18/21 History vitamin B complex 1 tab PO DAILY 08/18/21 08/18/21 08/18/21 History Physical Exam Vital Signs and Narrative: Vital Signs: Last Vital Signs Temp 98.6 F 08/18/21 18:30 Pulse 83 08/18/21 18:30 Resp 16 08/18/21 18:30 BP 160/68 H 08/18/21 18:30 Pulse Ox 97 08/18/21 18:30 Oxygen Flow Rate 2 08/18/21 18:30 BMI result Body Mass Index 29.9 Gen: Appears be in no acute distress. On supplemental oxygen. Speaks in full sentences. HEENT: NCAT, Moist mucosa. Pulmonary: Diminished on the left side CVS: Normal S1-S2 Abdomen: BS+, Soft, Nontender; distended-fluid thrill present. Extremities: Warm well perfused Neuro: Alert and awake. Results Labs CBC and Chem 7: 08/18/21 19:15 08/18/21 19:15 Labs: Laboratory Results - last 24 hr 08/18/21 08/18/21 08/18/21 19:15 19:15 19:15 MCV 105.0 H MCH 36.4 H MCHC 34.6 RDW 14.6 Plt Count 138 L MPV 9.6 Immature Gran % (Auto) 1.9 H Neut % (Auto) 69.0 Lymph % (Auto) 9.6 L [place] % (Auto) 17.8 H Eos % (Auto) 1.0 Baso % (Auto) 0.7 Lymph # (Auto) 1.2 [place] # (Auto) 2.2 H Eos # (Auto) 0.1 Baso # (Auto) 0.1 Abs Immat Gran (auto) 0.23 H Absolute Neuts (auto) 8.4 H Absolute Nucleated RBC 0.000 Nucleated RBC % (auto) 0.0 Smear Tech's Comments VERIFIED PT INR APTT Anion Gap 12 Estim Creat Clear Calc 37.6 Estimated GFR 45 Random Glucose 104 Lactic Acid Calcium 8.3 L Magnesium 2.4 Total Bilirubin 6.3 H Direct Bilirubin 4.0 H AST 40 H D ALT 25 Alkaline Phosphatase 124 H D Troponin I High Sens 5.5 B-Natriuretic Peptide Total Protein 6.1 L Albumin 2.7 L Lipase 34 COVID-19 (KAYLI) COVID-19 Clin Com 08/18/21 08/18/21 08/18/21 19:15 19:15 19:15 MCV MCH MCHC RDW Plt Count MPV Immature Gran % (Auto) Neut % (Auto) Lymph % (Auto) [place] % (Auto) Eos % (Auto) Baso % (Auto) Lymph # (Auto) [place] # (Auto) Eos # (Auto) Baso # (Auto) Abs Immat Gran (auto) Absolute Neuts (auto) Absolute Nucleated RBC Nucleated RBC % (auto) Smear Tech's Comments PT 17.4 H INR 1.5 H APTT 36.9 Anion Gap Estim Creat Clear Calc Estimated GFR Random Glucose Lactic Acid Calcium Magnesium Total Bilirubin Direct Bilirubin AST ALT Alkaline Phosphatase Troponin I High Sens B-Natriuretic Peptide 81 Total Protein Albumin Lipase COVID-19 (KAYLI) Negative COVID-19 Clin Com See Note 08/18/21 19:47 MCV MCH MCHC RDW Plt Count MPV Immature Gran % (Auto) Neut % (Auto) Lymph % (Auto) [place] % (Auto) Eos % (Auto) Baso % (Auto) Lymph # (Auto) [place] # (Auto) Eos # (Auto) Baso # (Auto) Abs Immat Gran (auto) Absolute Neuts (auto) Absolute Nucleated RBC Nucleated RBC % (auto) Smear Tech's Comments PT INR APTT Anion Gap Estim Creat Clear Calc Estimated GFR Random Glucose Lactic Acid 1.8 Calcium Magnesium Total Bilirubin Direct Bilirubin AST ALT Alkaline Phosphatase Troponin I High Sens B-Natriuretic Peptide Total Protein Albumin Lipase COVID-19 (KAYLI) COVID-19 Clin Com Assessment and Plan (1) Ascites: Status: Acute (2) Pleural effusion: Status: Acute 81-year-old female with a past medical history of aortic stenosis, anxiety, non alcoholic liver cirrhosis-decompensated with ascites-receives periodic therapeutic paracentesis, IBS presented to the hospital with a chief complaint of chest pain. Noted to have ongoing conditions Chest pain: Pleuritic in nature. Likely from the large left-sided pleural effusion. Pain control. Telemetry. Large left pleural effusion: Patient is saturating 92% on room air. Placed on supplemental oxygen. Not in distress. IR follow-up for possible therapeutic pleural tap. Liver cirrhosis/ascites: Nontender abdomen. Patient received therapeutic paracentesis in ER team; removed 2800cc Fluid. Given Albuminx1. Continue home Lasix and Aldactone. History of anxiety: Continue home ulcers along/hydroxyzine. DVT prophylaxis: SCD boots Code status: Full code Quality Stroke Does the patient have a stroke diagnosis?: No VTE Prior VTE?: No VTE Risk Level:: Medical - moderate - high VTE Device Contraindication: N/A - Device Ordered VTE Drug Contraindication: Treatment Not Indicated
[2021-08-18] MEDS: Lactulose 20 GM/30 ML SOLUTION 10 GM PO (22:00)
[2021-08-18 22:27] LABS: Ammonia 48 umol/L (13-55)
[2021-08-18 22:38] LABS: Troponin-I High Sensitivity 5.8 ng/L (<3.5-17.0)
[2021-08-18 23:27] VITALS: BP 204/84; PULSE 78; RESP 16; O2SAT 97
[2021-08-18 23:36] LABS: MN% 95.2 %; PMN% 4.8 %; WBC Peritoneal Fluid 0.363 X10*3/uL
[2021-08-18] MEDS: Piperacillin Sodium/Tazobactam 3.375 GM in 0.9 % Sodium Chloride 50 ML IV (23:52)
[2021-08-18 23:53] VITALS: BP 132/62; PULSE 76; RESP 16; TEMP 36.4; O2SAT 97
[2021-08-18] MEDS: Lidocaine HCl 2 % MPF 5 ML VIAL INFILTRATI (23:53)
[2021-08-18 23:55] LABS: RBC Peritoneal Fluid < 0.002 X10*6/uL
[2021-08-19] VITALS (8 sets, daily range): BP systolic 110–141; BP diastolic 48–63; PULSE 56–73; RESP 13–18; TEMP 36.1–36.7; O2SAT 90–97
[2021-08-19 00:17] LABS: BF Shift QC OK YES; Lymphocyte Peritoneal Fl 13 %; Monocytes Peritoneal Fl 83 %; Neutrophils Peritoneal Fluid 2 %
[2021-08-19 00:18] LABS: Other Peritioneal Fl 2 %
[2021-08-19] MEDS: Albumin Human 25 % 100 ML IV (01:08)
[2021-08-19] MEDS: 0.9 % Sodium Chloride Flush 3 ML SYRINGE IVFLUSH ×2 (01:17→20:42)
--- NOTE | 2021-08-19 01:26 | PC.NURSE ---
I assumed care of this pt at 1900. Since that time the pt has remained alert and oriented x 3. She states she was sent to the ED after a CXR finding (pleural effusion on L side) as well as to have a pericentesis (earlier than a planned pericentesis scheduled for saturday08/21/21). Respirations are spontaneous and non-labored, RR 18, no cyanosis, speaking in full sentences, O2 sat's 95% or better on 2L nasal cannula. There is obvious abdominal distention and the pt refers to it as uncomfortable. No nausea. No vomiting. The pt had a small, partially formed partially liquid, brown stool in bedside commode with one stand by assist. her gait was steady. ER PA performed bedside pericentesis and withdrew 2.5 large evacuatiners. I spoke with pts HCP x 2 (Nancy) and helped the pt to speak with her as well. Pt and HCP are updated on plan of care and they both verbalize an understanding of this. Will continue to monitor.
[2021-08-19 07:41] LABS: Basophils Absolute Auto 0.1 X10*3/uL (0.0-0.2); Basophils Percent Auto 0.7 % (0-2); Eosinophils Absolute Auto 0.3 X10*3/uL (0.0-0.4); Eosinophils Percent Auto 3.7 % (0-4); Hematocrit 29.5 % (37.0-47.0); Hemoglobin 10.1 g/dl (12.0-16.0); Imm Gran Abs Auto 0.08 X10*3/uL (0.00-0.03); Imm Gran Pct Auto 1.2 % (0.0-0.4); Lymphocytes Absolute Auto 1.1 X10*3/uL (1.2-4.9); Lymphocytes Percent Auto 16.1 % (20-40); MANUAL DIFF FLAG SCAN; Mean Corpuscular HGB Conc 34.2 g/dl (31.0-35.0); Mean Corpuscular Hemoglobin 35.8 pg (27.0-33.0); Mean Corpuscular Volume 104.6 fL (80.0-98.0); Mean Platelet Volume 9.8 fL (9.4-12.3); Monocytes Absolute Auto 1.4 X10*3/uL (0.1-1.2); Monocytes Percent Auto 20.6 % (2-11); Neutrophils Absolute Auto 3.9 x10*3/uL (2.0-8.3); Neutrophils Percent Auto 57.7 % (45-73); Red Blood Count 2.82 X10*6/uL (4.20-5.50); Red Cell Distribution Width 14.5 % (11.0-16.0); SCAN SMEAR FLAG 1; White Blood Count 6.8 X10*3/uL (4.8-10.8)
[2021-08-19] MEDS: Furosemide 40 MG TABLET PO (07:41)
[2021-08-19] MEDS: Multivitamin TABLET 1 TAB PO (07:42)
[2021-08-19] MEDS: Spironolactone 25 MG TABLET 100 MG PO (07:42)
[2021-08-19] MEDS: Lactulose 20 GM/30 ML SOLUTION 10 GM PO ×3 (07:42→20:42)
--- NOTE | 2021-08-19 07:55 | PC.NURSE ---
report taken from filiberto laurent here for abd pain, dyspnea r/t ascites, known cirrhosis. had 2.5 l drained yesterday, sent for testing. pt sitting up in bed, eating breakfast tolerating po, took morning meds. sts feeling generally better than yesterday. awaiting thoracentesis today via ir. [facility] for dc needs.
[2021-08-19 08:01] LABS: Anion Gap 12 (12-20); Blood Urea Nitrogen 29 mg/dL (9-16); Carbon Dioxide 21 mmol/L (22-29); Chloride 105 mmol/L (96-108); Creatinine Clr Calc Pharmacy 39.6; Estimated Glomerular Filt Rate 47; Glucose Random 91 mg/dL (60-115); Potassium 4.6 mmol/L (3.3-5.1); Sodium 133 mmol/L (135-145)
[2021-08-19 08:06] LABS: Albumin Peritoneal Fluid 0.5; Glucose Peritoneal Fluid 107
[2021-08-19 08:07] LABS: LDH Peritoneal Fluid 61
[2021-08-19 08:13] LABS: Platelet Count 101 X10*3/uL (160-400); SLIDE REVIEW VERIFIED
[2021-08-19 08:26] LABS: INTERNATIONAL NORM RATIO 1.6 (0.9-1.1); Prothrombin Time 18.8 SEC (9.9-13.0)
[2021-08-19 08:47] LABS: Glucose Random 103 mg/dL (60-115); Lactate Dehydrogenase 166 U/L (122-220); Total Protein 5.7 g/dL (6.5-8.0)
--- NOTE | 2021-08-19 10:55 | HO.PM.IMPN ---
Subjective Subjective Date of Service: 08/19/21 Review of Systems Follow up ascites, pleural effusion Some mild sob but no cough Physical Exam Vital Signs: Vital Signs: Last Vital Signs Temp 98.1 F 08/19/21 08:29 Pulse 73 08/19/21 08:29 Resp 16 08/19/21 08:29 BP 137/52 L 08/19/21 08:29 Pulse Ox 94 08/19/21 08:29 Oxygen Flow Rate 2 08/18/21 18:30 BMI result Body Mass Index 29.9 Appearing in no acute distress lung sounds diminished heart regular rate rhythm, clear S1, S2 positive bowel sounds, abdomen is soft, nontender neuro patient is alert x3, no focal deficits Objective Data Active Medications Alprazolam (Alprazolam 0.25 Mg Tablet) 0.25 mg PO DAILY PRN PRN Reason: Anxiety Furosemide (Furosemide 40 Mg Tablet) 40 mg PO DAILY [facility]; Protocol Last Admin: 08/19/21 07:41 Dose: 40 mg Documented by: ISRAEL Hydroxyzine HCl (Hydroxyzine Hcl 25 Mg Tablet) 25 mg PO TID PRN PRN Reason: Anxiety Lactulose (Lactulose 20 Gm/30 Ml Solution) 10 gm PO TID [facility] Last Admin: 08/19/21 07:42 Dose: 10 gm Documented by: ISRAEL Melatonin (Melatonin 3 Mg Tablet) 6 mg PO BEDTIME PRN PRN Reason: Insomnia Multivitamins/Vitamin C (Multivitamin Tablet) 1 tab PO DAILY [facility] Last Admin: 08/19/21 07:42 Dose: 1 tab Documented by: ISRAEL Oxycodone HCl (Oxycodone Hcl Immed Release 5 Mg Tablet) 5 mg PO Q6H PRN PRN Reason: Pain, Severe (Pain Scale 7-10) Pharmacy Consult (Consult Rx Perform Med Rec) 1 each MISCELLANE ONCE PRN PRN Reason: Consult order Senna (Sennosides 8.6 Mg Tablet) 17.2 mg PO BEDTIME PRN PRN Reason: Constipation Sodium Chloride (0.9 % Sodium Chloride Flush 3 Ml Syringe) 3 ml IVFLUSH QSHIFT [facility] Last Admin: 08/19/21 07:03 Dose: Not Given Documented by: ISRAEL Non-Admin Reason: Med Not Available Spironolactone (Spironolactone 25 Mg Tablet) 100 mg PO DAILY [facility]; Protocol Last Admin: 08/19/21 07:42 Dose: 100 mg Documented by: ISRAEL Labs CBC & Chem 7: 08/19/21 07:20 08/19/21 08:07 Labs: Laboratory Results - last 24 hr 08/18/21 08/18/21 08/18/21 19:15 19:15 19:15 MCV 105.0 H MCH 36.4 H MCHC 34.6 RDW 14.6 Plt Count 138 L MPV 9.6 Immature Gran % (Auto) 1.9 H Neut % (Auto) 69.0 Lymph % (Auto) 9.6 L [place] % (Auto) 17.8 H Eos % (Auto) 1.0 Baso % (Auto) 0.7 Lymph # (Auto) 1.2 [place] # (Auto) 2.2 H Eos # (Auto) 0.1 Baso # (Auto) 0.1 Abs Immat Gran (auto) 0.23 H Absolute Neuts (auto) 8.4 H Absolute Nucleated RBC 0.000 Nucleated RBC % (auto) 0.0 Smear Tech's Comments VERIFIED PT INR APTT Anion Gap 12 Estim Creat Clear Calc 37.6 Estimated GFR 45 Random Glucose 104 Lactic Acid Calcium 8.3 L Magnesium 2.4 Total Bilirubin 6.3 H Direct Bilirubin 4.0 H AST 40 H D ALT 25 Alkaline Phosphatase 124 H D Ammonia Lactate Dehydrogenase Troponin I High Sens 5.5 B-Natriuretic Peptide Total Protein 6.1 L Albumin 2.7 L Lipase 34 Peritoneal WBC Peritoneal RBC Periton Neutrophils Periton Lymphocytes Peritoneal Monocytes Peritoneal Other Cells Peritoneal Tot Protein Peritoneal Albumin Peritoneal LDH Peritoneal Glucose COVID-19 (KAYLI) COVID-19 Clin Com 08/18/21 08/18/21 08/18/21 19:15 19:15 19:15 MCV MCH MCHC RDW Plt Count MPV Immature Gran % (Auto) Neut % (Auto) Lymph % (Auto) [place] % (Auto) Eos % (Auto) Baso % (Auto) Lymph # (Auto) [place] # (Auto) Eos # (Auto) Baso # (Auto) Abs Immat Gran (auto) Absolute Neuts (auto) Absolute Nucleated RBC Nucleated RBC % (auto) Smear Tech's Comments PT 17.4 H INR 1.5 H APTT 36.9 Anion Gap Estim Creat Clear Calc Estimated GFR Random Glucose Lactic Acid Calcium Magnesium Total Bilirubin Direct Bilirubin AST ALT Alkaline Phosphatase Ammonia Lactate Dehydrogenase Troponin I High Sens B-Natriuretic Peptide 81 Total Protein Albumin Lipase Peritoneal WBC Peritoneal RBC Periton Neutrophils Periton Lymphocytes Peritoneal Monocytes Peritoneal Other Cells Peritoneal Tot Protein Peritoneal Albumin Peritoneal LDH Peritoneal Glucose COVID-19 (KAYLI) Negative COVID-19 Clin Com See Note 08/18/21 08/18/21 08/18/21 19:47 22:05 22:05 MCV MCH MCHC RDW Plt Count MPV Immature Gran % (Auto) Neut % (Auto) Lymph % (Auto) [place] % (Auto) Eos % (Auto) Baso % (Auto) Lymph # (Auto) [place] # (Auto) Eos # (Auto) Baso # (Auto) Abs Immat Gran (auto) Absolute Neuts (auto) Absolute Nucleated RBC Nucleated RBC % (auto) Smear Tech's Comments PT INR APTT Anion Gap Estim Creat Clear Calc Estimated GFR Random Glucose Lactic Acid 1.8 Calcium Magnesium Total Bilirubin Direct Bilirubin AST ALT Alkaline Phosphatase Ammonia 48 Lactate Dehydrogenase Troponin I High Sens 5.8 B-Natriuretic Peptide Total Protein Albumin Lipase Peritoneal WBC Peritoneal RBC Periton Neutrophils Periton Lymphocytes Peritoneal Monocytes Peritoneal Other Cells Peritoneal Tot Protein Peritoneal Albumin Peritoneal LDH Peritoneal Glucose COVID-19 (KAYLI) COVID-19 Clin Com 08/18/21 08/18/21 08/19/21 23:25 23:25 07:20 MCV 104.6 H MCH 35.8 H MCHC 34.2 RDW 14.5 Plt Count 101 L D MPV 9.8 Immature Gran % (Auto) 1.2 H Neut % (Auto) 57.7 Lymph % (Auto) 16.1 L [place] % (Auto) 20.6 H Eos % (Auto) 3.7 Baso % (Auto) 0.7 Lymph # (Auto) 1.1 L [place] # (Auto) 1.4 H Eos # (Auto) 0.3 Baso # (Auto) 0.1 Abs Immat Gran (auto) 0.08 H Absolute Neuts (auto) 3.9 Absolute Nucleated RBC 0.000 Nucleated RBC % (auto) 0.0 Smear Tech's Comments VERIFIED PT INR APTT Anion Gap Estim Creat Clear Calc Estimated GFR Random Glucose Lactic Acid Calcium Magnesium Total Bilirubin Direct Bilirubin AST ALT Alkaline Phosphatase Ammonia Lactate Dehydrogenase Troponin I High Sens B-Natriuretic Peptide Total Protein Albumin Lipase Peritoneal WBC 0.363 Peritoneal RBC < 0.002 Periton Neutrophils 2 Periton Lymphocytes 13 Peritoneal Monocytes 83 Peritoneal Other Cells 2 Peritoneal Tot Protein 1.0 Peritoneal Albumin 0.5 Peritoneal LDH 61 Peritoneal Glucose 107 COVID-19 (KAYLI) COVID-19 [employer] 08/19/21 08/19/21 08/19/21 07:20 08:07 08:07 MCV MCH MCHC RDW Plt Count MPV Immature Gran % (Auto) Neut % (Auto) Lymph % (Auto) [place] % (Auto) Eos % (Auto) Baso % (Auto) Lymph # (Auto) [place] # (Auto) Eos # (Auto) Baso # (Auto) Abs Immat Gran (auto) Absolute Neuts (auto) Absolute Nucleated RBC Nucleated RBC % (auto) Smear Tech's Comments PT 18.8 H INR 1.6 H APTT Anion Gap 12 Estim Creat Clear Calc 39.6 Estimated GFR 47 Random Glucose 91 103 Lactic Acid Calcium 8.0 L Magnesium Total Bilirubin Direct Bilirubin AST ALT Alkaline Phosphatase Ammonia Lactate Dehydrogenase 166 Troponin I High Sens B-Natriuretic Peptide Total Protein 5.7 L Albumin Lipase Peritoneal WBC Peritoneal RBC Periton Neutrophils Periton Lymphocytes Peritoneal Monocytes Peritoneal Other Cells Peritoneal Tot Protein Peritoneal Albumin Peritoneal LDH Peritoneal Glucose COVID-19 (KAYLI) COVID-19 Clin Com Microbiology Microbiology Results: Microbiology 08/18/21 23:25 Gram Stain - Final Abdominal Fluid Routine Culture - Preliminary No growth to date. Anaerobic Culture - Preliminary No growth to date. Assessment and Plan (1) Pleural effusion: Status: Acute (2) Ascites: Status: Acute Assessment and Plan: 81-year-old female with a past medical history of aortic stenosis, anxiety, non alcoholic liver cirrhosis-decompensated with ascites-receives periodic therapeutic paracentesis, IBS presented to the hospital with a chief complaint of chest pain.? Noted to have ongoing conditions Chest pain. Pleuritic in nature.? Likely from the large left-sided pleural effusion.? Pain control.? Telemetry. Large left pleural effusion Patient is saturating 92% on room air.? Placed on supplemental oxygen.? Us thoracentesis ordered Liver cirrhosis/ascites Nontender abdomen. Patient received therapeutic paracentesis in ER team; removed 2800cc Fluid. Given Albuminx1.? Continue home Lasix and Aldactone. History of anxiety continue home medications DVT prophylaxis SCD boots Code status:? Full code Attending Dr. Villegas Quality Stroke Does the patient have a stroke diagnosis?: No VTE Prior VTE?: No VTE Risk Level:: Medical - moderate - high VTE Device Contraindication: N/A - Device Ordered VTE Drug Contraindication: Treatment Not Indicated
[2021-08-19] MEDS: ALPRAZolam 0.25 MG TABLET PO (11:37)
--- NOTE | 2021-08-19 12:00 | CONS_ITS ---
DATE OF SERVICE: 08/19/2021 REFERRING PHYSICIAN: Champ Phoenix MD REASON FOR CONSULTATION: Ascites and cirrhosis. HISTORY OF PRESENT ILLNESS: The patient is a pleasant 81-year-old woman who was admitted to the hospital after presenting to the emergency room yesterday from her primary care provider's office because of a left-sided pleural effusion. She has a history of cirrhosis with ascites requiring intermittent paracentesis. The patient describes her cirrhosis as being related to nonalcoholic fatty liver disease although other records indicate that she did have a history of regular alcohol use. She was evaluated by her primary care provider in the office with complaints of some shortness of breath and left-sided chest wall pain for about 2 weeks. Evaluation showed decreased breath sounds and a chest x-ray was obtained, which showed a pleural effusion, and she was referred to the emergency department for thoracentesis, which is in the process of being scheduled. In the emergency department, she underwent paracentesis with removal of 2.8 L of fluid, and she received albumin. There was no evidence of SBP on fluid analysis. The patient is on chronic diuretic therapy, which she adjusts based on her fluid status and the presence of lower extremity cramping. PAST MEDICAL HISTORY: 1. Cirrhosis as above with ascites. She reportedly had gastric varices on endoscopy in January 2021 and had been on Adderall, but stopped this due to side effects. 2. Aortic stenosis. 3. Irritable bowel syndrome. 4. Anxiety. 5. Pleural effusion as above. CURRENT MEDICATIONS: Her current medication list is reviewed in the chart. ALLERGIES: LATEX. FAMILY HISTORY: This is reviewed with the patient and is noncontributory. SOCIAL HISTORY: She is retired. There is no current tobacco or alcohol abuse by her report. REVIEW OF SYSTEMS: SKIN: No pruritus. HEENT: Negative. CARDIOPULMONARY: She states she has no shortness of breath while she lies on her left side. She does have a cough. GASTROINTESTINAL: As above. GENITOURINARY: Negative. NEUROPSYCHIATRIC: Negative. PHYSICAL EXAMINATION: GENERAL: Shows a pleasant female, lying comfortably in bed. VITAL SIGNS: Reviewed in the electronic medical record and are stable. SKIN: Anicteric. HEENT: Shows no scleral icterus. NECK: Without lymphadenopathy or thyromegaly. LUNGS: Clear on the right with decreased breath sounds on the left. HEART: Shows regular rate and rhythm. S1, S2. No murmur. ABDOMEN: Soft, without focal masses. There is a fluid wave consistent with ascites. Bowel sounds are present. No organomegaly is noted. EXTREMITIES: Without edema. LABORATORY DATA: Reviewed. IMPRESSION: Cirrhosis with ascites. At this point, she appears stable. I would recommend continuing her diuretic therapy, and she can undergo paracentesis on a p.r.n. basis for comfort. Thanks for asking me to see her. I will follow her in the hospital with you. MD LENY Salcedo/MALDONADO / [id number]
[2021-08-19] MEDS: HYDROmorphone HCl 0.5 MG/0.5 ML SYRINGE IVPUSH (12:06)
--- NOTE | 2021-08-19 12:13 | PC.NURSE ---
pt finished w thoracentecis, approx 1.5 l drained, pt tolerated well. given dilaudid for pain mgmt, now lying comfortably in stretcher. vss. see chart for documentation. call brewer within reach.
--- NOTE | 2021-08-19 12:14 | PM.PROC ---
Brief Operative Note Date of procedure: 08/19/21 Procedure: PROCEDURE NOTE:? Left thoracentesis. INDICATIONS:? Very symptomatic large left pleural effusion with left lung collapse. Anesthesia:? Local 1% lidocaine. Procedure:? After informed consent was obtained, the patient was sat up over the side of the bed.? She was fully monitored.? She underwent ultrasound of the left chest which determined the optimal insertion point for the thoracentesis catheter.? The point was marked a couple of inches medial to the posterior axillary line on the left, maybe just above the 10th rib. Local anesthesia was infiltrated and then the 25 gauge needle was plunged into the chest, aspirating serosanguineous fluid.? The 4 Turkmen Angiocath was then inserted just above the rib with excellent return of the same fluid.? Subsequently the suction bottles were hooked up and a total of 1.8 L of rust colored fluid was aspirated until there was no further return.? The catheter was withdrawn and a bandage applied. The patient tolerated the procedure well without complications. ?Postprocedure chest x-ray showed no PTX, but the bottom half of the left hemithorax is still opacified. ?
[2021-08-19 12:16] LABS: Appearance Urine HAZY; Color Urine DK YELLOW; Glucose Urine UA NEG (NEG); Leukocyte Esterase Urine NEG (NEG); Nitrite Urine NEG (NEG); PH 5.5 (5.0-8.0); Specific Gravity - Urine 1.025 (1.005-1.025); Urine Blood NEG (NEG); Urine Ketones NEG (NEG); Urine Protein NEG (NEG-TRACE)
[2021-08-19 12:30] LABS: MN% 52.4 %; PMN% 47.6 %; RBC Peritoneal Fluid 0.076 X10*6/uL; WBC Peritoneal Fluid 1.932 X10*3/uL
[2021-08-19] MEDS: Lidocaine HCl 1 % MPF 5 ML VIAL 4 ML SUBCUT (12:34)
[2021-08-19 13:03] LABS: Lymphocyte Peritoneal Fl 27 %; Neutrophils Peritoneal Fluid 57 %
[2021-08-19 13:04] LABS: BF Shift QC OK YES; Basophils Peritoneal Fl 0 %; Eosinophils Peritoneal Fl 3 %; Man Diluent Bkgrd OK YES; Monocytes Peritoneal Fl 8 %; Other Peritioneal Fl 7 %
[2021-08-19] MEDS: oxyCODONE HCl Immed Release 5 MG TABLET PO (18:56)
--- NOTE | 2021-08-20 02:58 | PM.EVENT ---
Event Note Date of Service: 08/20/21 Event Note: Bacteremia: blood Cx growing GPC; s/w Vancomycin IV. ID consult
[2021-08-20 03:55] VITALS: BP 109/52; PULSE 67; RESP 20; TEMP 36.1; O2SAT 92
[2021-08-20] MEDS: vancomycin HCL 1,000 MG in 0.9 % Sodium Chloride 250 ML 270 MG IV (04:03)
[2021-08-20 05:50] LABS: Hematocrit 30.4 % (37.0-47.0); Hemoglobin 10.3 g/dl (12.0-16.0); Mean Corpuscular HGB Conc 33.9 g/dl (31.0-35.0); Mean Corpuscular Hemoglobin 35.9 pg (27.0-33.0); Mean Corpuscular Volume 105.9 fL (80.0-98.0); Mean Platelet Volume 9.4 fL (9.4-12.3); Red Blood Count 2.87 X10*6/uL (4.20-5.50); Red Cell Distribution Width 14.5 % (11.0-16.0); White Blood Count 6.2 X10*3/uL (4.8-10.8)
[2021-08-20 05:52] LABS: Platelet Count 99 X10*3/uL (160-400)
[2021-08-20 06:22] LABS: Anion Gap 9 (12-20); Blood Urea Nitrogen 29 mg/dL (9-16); Calcium 7.8 mg/dL (8.4-10.2); Carbon Dioxide 23 mmol/L (22-29); Chloride 107 mmol/L (96-108); Creatinine Clr Calc Pharmacy 46.2; Estimated Glomerular Filt Rate 57; Glucose Random 80 mg/dL (60-115); Potassium 4.4 mmol/L (3.3-5.1); Sodium 135 mmol/L (135-145)
--- NOTE | 2021-08-20 07:04 | PHA.PROG ---
Admission Date/Time: August 18, 2021 20:58 Indication: BACTEREMIA Weight in k.657 kg Adjusted body weight in K.8 [place] body weight in K.4 Obesity Dosing Indication % IBW: Serum Creatinine - Last 168 Hours 08/18/21 08/19/21 08/20/21 19:15 07:20 05:18 Creatinine 1.17 1.11 0.95 Estimated CrCl and GFR - Last 168 Hours 08/18/21 08/19/21 08/20/21 19:15 07:20 05:18 Estim Creat Clear Calc 37.6 39.6 46.2 Estimated GFR 45 47 57 Vancomycin Loading Dose: 1000 MG GIVEN IN ED X 1 Current Vancomycin Dosing Regimen: 1250 MG Q24H Vancomycin Monitoring using AUC goal of 400 - 600 range with trough as surrogate marker: PREDICTED AUC OF 495, TROUGH 14.8 Date and Time for next Vancomycin Level to be drawn: BEFORE 3RD DOSE 08/22/21 @0200 Pharmacist Comments on Vancomycin Plan: Vancomycin dosing will take advantage of [employer] as a clinical decision support tool that uses Bayesian modeling to calculate individual patient's pharmacokinetic parameters and forecast the patient's drug concentration time course with the target goal AUC 24 range of 400 - 600 mg/L/hr.
[2021-08-20 07:39] VITALS: BP 110/56; PULSE 72; RESP 20; TEMP 36.1; O2SAT 96
[2021-08-20] MEDS: Lactulose 20 GM/30 ML SOLUTION 10 GM PO ×3 (08:36→20:14)
[2021-08-20] MEDS: Furosemide 40 MG TABLET PO (08:36)
[2021-08-20] MEDS: Multivitamin TABLET 1 TAB PO (08:36)
[2021-08-20] MEDS: Spironolactone 25 MG TABLET 100 MG PO (08:37)
[2021-08-20] MEDS: 0.9 % Sodium Chloride Flush 3 ML SYRINGE IVFLUSH ×3 (08:56→23:31)
--- NOTE | 2021-08-20 09:23 | P.PNIM_ITS ---
Subjective Subjective Date of Service: 08/20/21 Review of Systems Follow up pleural effusion and ascites feels better after para and thora some pleuritic chest pain with cough but much better than yesterday Physical Exam Verdana 4l Vital Signs: Verdana 4d Verdana 4d Vital Signs: Verdana 4d Verdana 4Bd Last Vital Signs Verdana 4d Molder Sweep New 4d Molder Sweep New 4d Temp 96.9 F 08/20/21 07:39 Molder Sweep New 4d Pulse 72 08/20/21 07:39 Molder Sweep NewNew 4d Resp 20 08/20/21 07:39 BP 110/56 L 08/20/21 07:39 Pulse Ox 96 08/20/21 07:39 Oxygen Flow Rate 2 08/18/21 18:30 BMI result Body Mass Index 29.9 Appearing in no acute distress lung sounds are clear to auscultation heart regular rate rhythm, clear S1, S2 positive bowel sounds, abdomen is soft, nontender neuro patient is alert x3, no focal deficits Objective Data Active Medications Alprazolam (Alprazolam 0.25 Mg Tablet) 0.25 mg PO DAILY PRN PRN Reason: Anxiety Last Admin: 08/19/21 11:37 Dose: 0.25 mg Documented by: ISRAEL Furosemide (Furosemide 40 Mg Tablet) 40 mg PO DAILY [facility]; Protocol Last Admin: 08/20/21 08:36 Dose: 40 mg Documented by: GLEN Hydroxyzine HCl (Hydroxyzine Hcl 25 Mg Tablet) 25 mg PO TID PRN PRN Reason: Anxiety Vancomycin HCl 1,250 mg/ (Sodium Chloride) 250 mls @ 166.667 mls/hr IV Q24H [facility] Lactulose (Lactulose 20 Gm/30 Ml Solution) 10 gm PO TID [facility] Last Admin: 08/20/21 08:36 Dose: 10 gm Documented by: GLEN Melatonin (Melatonin 3 Mg Tablet) 6 mg PO BEDTIME PRN PRN Reason: Insomnia Multivitamins/Vitamin C (Multivitamin Tablet) 1 tab PO DAILY [facility] Last Admin: 08/20/21 08:36 Dose: 1 tab Documented by: GLEN Oxycodone HCl (Oxycodone Hcl Immed Release 5 Mg Tablet) 5 mg PO Q6H PRN PRN Reason: Pain, Severe (Pain Scale 7-10) Last Admin: 08/19/21 18:56 Dose: 5 mg Documented by: ISRAEL Pharmacy Consult (Consult Rx Perform Med Rec) 1 each MISCELLANE ONCE PRN PRN Reason: Consult order Pharmacy Consult (Consult Rx Vancomycin Dosing) 1 each MISCELLANE DAILY PRN PRN Reason: Consult order Senna (Sennosides 8.6 Mg Tablet) 17.2 mg PO BEDTIME PRN PRN Reason: Constipation Sodium Chloride (0.9 % Sodium Chloride Flush 3 Ml Syringe) 3 ml IVFLUSH QSHIFT ELAYNE Last Admin: 08/20/21 08:56 Dose: 3 ml Documented by: GLEN Spironolactone (Spironolactone 25 Mg Tablet) 100 mg PO DAILY [facility]; Protocol Last Admin: 08/20/21 08:37 Dose: 100 mg Documented by: GLEN Labs CBC & Chem 7: 08/20/21 05:18 08/20/21 05:18 Labs: Laboratory Results - last 24 hr 08/19/21 08/19/21 08/20/21 11:50 12:08 05:18 MCV 105.9 H MCH 35.9 H MCHC 33.9 RDW 14.5 Plt Count 99 L MPV 9.4 Absolute Nucleated RBC 0.000 Nucleated RBC % (auto) 0.0 Anion Gap Estim Creat Clear Calc Estimated GFR Random Glucose Calcium Urine Color DK YELLOW Urine Appearance HAZY Urine pH 5.5 Ur Specific [place] 1.025 Urine Protein NEG Urine Glucose (UA) NEG Urine Ketones NEG Urine Blood NEG Urine Nitrite NEG Ur Leukocyte Esterase NEG Peritoneal WBC 1.932 Peritoneal RBC 0.076 Periton Neutrophils 57 Periton Lymphocytes 27 Peritoneal Monocytes 8 Peritoneal Eosinophils 3 Peritoneal Basophils 0 Peritoneal Other Cells 7 08/20/21 05:18 MCV MCH MCHC RDW Plt Count MPV Absolute Nucleated RBC Nucleated RBC % (auto) Anion Gap 9 L Estim Creat Clear Calc 46.2 Estimated GFR 57 Random Glucose 80 Calcium 7.8 L Urine Color Urine Appearance Urine pH Ur Specific [place] Urine Protein Urine Glucose (UA) Urine Ketones Urine Blood Urine Nitrite Ur Leukocyte Esterase Peritoneal WBC Peritoneal RBC Periton Neutrophils Periton Lymphocytes Peritoneal Monocytes Peritoneal Eosinophils Peritoneal Basophils Peritoneal Other Cells Microbiology Microbiology Results: Microbiology 08/19/21 11:50 Gram Stain - Final Thoracentesis Fluid Routine Culture - Preliminary No growth to date. Anaerobic Culture - Preliminary No growth to date. 08/18/21 23:25 Gram Stain - Final Abdominal Fluid Routine Culture - Preliminary No growth to date. Anaerobic Culture - Preliminary No growth to date. 08/18/21 19:15 Blood Culture - Preliminary Blood - Venous Prelim: GPC Gram Stain only Assessment and Plan (1) Ascites: Status: Acute (2) Pleural effusion: Status: Acute Assessment and Plan: 81-year-old female with a past medical history of aortic stenosis, anxiety, non alcoholic liver cirrhosis-decompensated with ascites-receives periodic therapeutic paracentesis, IBS presented to the hospital with a chief complaint of chest pain.? Noted to have ongoing conditions Bacteremia blood cx GPC 08/13, pending final cx Started on vancomycin Pleuritic Chest pain secondary to large left pleural effusion Likely from the large left-sided pleural effusion, s/p thoracentesis by Dr. Sarkar on 08/20/21, 1.8L rust colored fluid removed. repeat CXR not showing pneumo, still mod sized effusion repeat CXR in the am Pain control.? Telemetry. Liver cirrhosis/ascites Nontender abdomen. Patient received therapeutic paracentesis in ER team; removed 2800cc Fluid. Given Albuminx1.? Continue home Lasix and Aldactone. History of anxiety continue home medications DVT prophylaxis SCD boots Code status:? Full code Attending Dr. Villegas Quality Stroke Does the patient have a stroke diagnosis?: No VTE Prior VTE?: No VTE Risk Level:: Medical - moderate - high VTE Device Contraindication: N/A - Device Ordered VTE Drug Contraindication: Treatment Not Indicated
[2021-08-20 11:39] VITALS: BP 114/53; PULSE 67; RESP 18; TEMP 36; O2SAT 93
--- NOTE | 2021-08-20 11:50 | PM.GIPN ---
Subjective Subjective Date of Service: 08/20/21 Interval History: feels better s/p paracentesis c/o intestinal gas Critical Care Time (minutes): 0 Physical Exam Vital Signs: Vital Signs: Last Vital Signs Temp 96.8 F 08/20/21 11:39 Pulse 67 08/20/21 11:39 Resp 18 08/20/21 11:39 BP 114/53 L 08/20/21 11:39 Pulse Ox 93 08/20/21 11:39 Oxygen Flow Rate 2 08/18/21 18:30 BMI result Body Mass Index 29.9 Const: General: cooperative and no acute distress GI: Other: soft, nontender no masses Objective Data Labs CBC & Chem 7: 08/20/21 05:18 08/20/21 05:18 Procedures Date of Service Date of Service: 08/20/21 Progress Note: A&P Assessment and plan (1) Ascites: Status: Acute Assessment and Plan: doing well cultures pending continue diuretics simethicone for gas Fall Risk Details Current Medications: Current Medications Alprazolam (Alprazolam 0.25 Mg Tablet) 0.25 mg PO DAILY PRN PRN Reason: Anxiety Last Admin: 08/19/21 11:37 Dose: 0.25 mg Documented by: Furosemide (Furosemide 40 Mg Tablet) 40 mg PO DAILY [facility]; Protocol Last Admin: 08/20/21 08:36 Dose: 40 mg Documented by: Hydroxyzine HCl (Hydroxyzine Hcl 25 Mg Tablet) 25 mg PO TID PRN PRN Reason: Anxiety Vancomycin HCl 1,250 mg/ (Sodium Chloride) 250 mls @ 166.667 mls/hr IV Q24H [facility] Lactulose (Lactulose 20 Gm/30 Ml Solution) 10 gm PO TID [facility] Last Admin: 08/20/21 08:36 Dose: 10 gm Documented by: Melatonin (Melatonin 3 Mg Tablet) 6 mg PO BEDTIME PRN PRN Reason: Insomnia Multivitamins/Vitamin C (Multivitamin Tablet) 1 tab PO DAILY [facility] Last Admin: 08/20/21 08:36 Dose: 1 tab Documented by: Oxycodone HCl (Oxycodone Hcl Immed Release 5 Mg Tablet) 5 mg PO Q6H PRN PRN Reason: Pain, Severe (Pain Scale 7-10) Last Admin: 08/19/21 18:56 Dose: 5 mg Documented by: Pharmacy Consult (Consult Rx Perform Med Rec) 1 each MISCELLANE ONCE PRN PRN Reason: Consult order Pharmacy Consult (Consult Rx Vancomycin Dosing) 1 each MISCELLANE DAILY PRN PRN Reason: Consult order Senna (Sennosides 8.6 Mg Tablet) 17.2 mg PO BEDTIME PRN PRN Reason: Constipation Simethicone (Simethicone 80 Mg Tab.Chew) 160 mg PO ONCE ONE Stop: 08/20/21 11:49 Simethicone (Simethicone 80 Mg Tab.Chew) 80 mg PO QIDWMHS PRN PRN Reason: Gas Sodium Chloride (0.9 % Sodium Chloride Flush 3 Ml Syringe) 3 ml IVFLUSH QSHIFT [facility] Last Admin: 08/20/21 08:56 Dose: 3 ml Documented by: Spironolactone (Spironolactone 25 Mg Tablet) 100 mg PO DAILY [facility]; Protocol Last Admin: 08/20/21 08:37 Dose: 100 mg Documented by: Time Spent With Patient Time: Total time spent is greater than 50% in coordination of care (as documented) at patient's floor/unit and/or counseling patient: Time with patient: 15 - 24 minutes Quality Stroke Does the patient have a stroke diagnosis?: No VTE Prior VTE?: No VTE Risk Level:: Medical - moderate - high VTE Device Contraindication: N/A - Device Ordered VTE Drug Contraindication: Treatment Not Indicated
[2021-08-20] MEDS: Simethicone 80 MG TAB.CHEW 160 MG PO (13:45)
[2021-08-20] MEDS: oxyCODONE HCl Immed Release 5 MG TABLET PO ×2 (13:50→20:14)
[2021-08-20 15:27] VITALS: BP 146/76; PULSE 69; RESP 16; TEMP 36.5; O2SAT 92
[2021-08-20 19:18] VITALS: BP 125/58; PULSE 73; RESP 17; TEMP 36.3; O2SAT 93
[2021-08-20 23:53] VITALS: BP 121/57; PULSE 69; RESP 20; TEMP 36.3; O2SAT 90
[2021-08-21] MEDS: vancomycin HCL 1,250 MG in 0.9 % Sodium Chloride 250 ML 166.67 MG IV (03:51)
[2021-08-21 03:52] VITALS: BP 117/57; PULSE 66; RESP 16; TEMP 36; O2SAT 95
[2021-08-21 07:17] VITALS: BP 119/59; PULSE 70; RESP 18; TEMP 36.6; O2SAT 93
[2021-08-21 07:45] LABS: Hematocrit 31.3 % (37.0-47.0); Hemoglobin 10.6 g/dl (12.0-16.0); Mean Corpuscular HGB Conc 33.9 g/dl (31.0-35.0); Mean Corpuscular Hemoglobin 36.1 pg (27.0-33.0); Mean Corpuscular Volume 106.5 fL (80.0-98.0); Mean Platelet Volume 9.8 fL (9.4-12.3); Red Blood Count 2.94 X10*6/uL (4.20-5.50); Red Cell Distribution Width 14.8 % (11.0-16.0); White Blood Count 7.7 X10*3/uL (4.8-10.8)
[2021-08-21 07:53] LABS: Platelet Count 94 X10*3/uL (160-400)
[2021-08-21 07:59] LABS: Anion Gap 11 (12-20); Blood Urea Nitrogen 30 mg/dL (9-16); Calcium 8.1 mg/dL (8.4-10.2); Carbon Dioxide 24 mmol/L (22-29); Chloride 104 mmol/L (96-108); Creatinine Clr Calc Pharmacy 39.3; Estimated Glomerular Filt Rate 47; Glucose Random 82 mg/dL (60-115); Potassium 4.7 mmol/L (3.3-5.1); Sodium 134 mmol/L (135-145)
[2021-08-21] MEDS: Lactulose 20 GM/30 ML SOLUTION 10 GM PO ×2 (08:18→14:28)
[2021-08-21] MEDS: 0.9 % Sodium Chloride Flush 3 ML SYRINGE IVFLUSH (08:18)
[2021-08-21] MEDS: Multivitamin TABLET 1 TAB PO (08:18)
[2021-08-21] MEDS: Furosemide 40 MG TABLET PO (08:18)
[2021-08-21] MEDS: Spironolactone 25 MG TABLET 100 MG PO (08:18)
[2021-08-21] MEDS: Simethicone 80 MG TAB.CHEW PO (08:25)
--- NOTE | 2021-08-21 10:10 | P.PNIM_ITS ---
Subjective Subjective Date of Service: 08/21/21 Review of Systems Follow up pleural effusion and ascites feels better after para and thora some pleuritic chest pain with cough but much better than yesterday Physical Exam Vital Signs: Vital Signs: Last Vital Signs Temp 98 F 08/21/21 07:17 Pulse 70 08/21/21 07:17 Resp 18 08/21/21 07:17 BP 119/59 L 08/21/21 07:17 Pulse Ox 93 08/21/21 07:17 Oxygen Flow Rate 2 08/18/21 18:30 BMI result Body Mass Index 29.9 Appearing in no acute distress lung sounds are clear to auscultation heart regular rate rhythm, clear S1, S2 positive bowel sounds, abdomen is soft, nontender neuro patient is alert x3, no focal deficits Objective Data Active Medications Alprazolam (Alprazolam 0.25 Mg Tablet) 0.25 mg PO DAILY PRN PRN Reason: Anxiety Last Admin: 08/19/21 11:37 Dose: 0.25 mg Documented by: ISRAEL Furosemide (Furosemide 40 Mg Tablet) 40 mg PO DAILY [facility]; Protocol Last Admin: 08/21/21 08:18 Dose: 40 mg Documented by: DMITRY Hydroxyzine HCl (Hydroxyzine Hcl 25 Mg Tablet) 25 mg PO TID PRN PRN Reason: Anxiety Vancomycin HCl 1,250 mg/ (Sodium Chloride) 250 mls @ 166.667 mls/hr IV Q24H [facility] Last Infusion: 08/21/21 05:50 Dose: 0 mls/hr Documented by: CASTILM Lactulose (Lactulose 20 Gm/30 Ml Solution) 10 gm PO TID [facility] Last Admin: 08/21/21 08:18 Dose: 10 gm Documented by: DMITRY Melatonin (Melatonin 3 Mg Tablet) 6 mg PO BEDTIME PRN PRN Reason: Insomnia Multivitamins/Vitamin C (Multivitamin Tablet) 1 tab PO DAILY [facility] Last Admin: 08/21/21 08:18 Dose: 1 tab Documented by: DMITRY Oxycodone HCl (Oxycodone Hcl Immed Release 5 Mg Tablet) 5 mg PO Q6H PRN PRN Reason: Pain, Severe (Pain Scale 7-10) Last Admin: 08/20/21 20:14 Dose: 5 mg Documented by: HO.DABA Pharmacy Consult (Consult Rx Perform Med Rec) 1 each MISCELLANE ONCE PRN PRN Reason: Consult order Pharmacy Consult (Consult Rx Vancomycin Dosing) 1 each MISCELLANE DAILY PRN PRN Reason: Consult order Senna (Sennosides 8.6 Mg Tablet) 17.2 mg PO BEDTIME PRN PRN Reason: Constipation Simethicone (Simethicone 80 Mg Tab.Chew) 80 mg PO QIDWMHS PRN PRN Reason: Gas Last Admin: 08/21/21 08:25 Dose: 80 mg Documented by: DMITRY Sodium Chloride (0.9 % Sodium Chloride Flush 3 Ml Syringe) 3 ml IVFLUSH QSHIFT ELAYNE Last Admin: 08/21/21 08:18 Dose: 3 ml Documented by: DMITRY Spironolactone (Spironolactone 25 Mg Tablet) 100 mg PO DAILY [facility]; Protocol Last Admin: 08/21/21 08:18 Dose: 100 mg Documented by: DMITRY Labs CBC & Chem 7: 08/21/21 07:02 08/21/21 07:02 Labs: Laboratory Results - last 24 hr 08/21/21 08/21/21 07:02 07:02 MCV 106.5 H MCH 36.1 H MCHC 33.9 RDW 14.8 Plt Count 94 L MPV 9.8 Absolute Nucleated RBC 0.000 Nucleated RBC % (auto) 0.0 Anion Gap 11 L Estim Creat Clear Calc 39.3 Estimated GFR 47 Random Glucose 82 Calcium 8.1 L Microbiology Microbiology Results: Microbiology 08/18/21 19:15 Blood Culture - Final Blood - Venous Coag negative Staphylococcus 08/18/21 22:05 Blood Culture - Preliminary Blood - Venous No growth after 24 hours. 08/19/21 11:50 Gram Stain - Final Thoracentesis Fluid Routine Culture - Preliminary No growth to date. Anaerobic Culture - Preliminary No growth to date. 08/18/21 23:25 Gram Stain - Final Abdominal Fluid Routine Culture - Preliminary No growth to date. Anaerobic Culture - Preliminary No growth to date. Assessment and Plan Assessment and Plan: 81-year-old female with a past medical history of aortic stenosis, anxiety, non alcoholic liver cirrhosis-decompensated with ascites-receives periodic therapeutic paracentesis, IBS presented to the hospital with a chief complaint of chest pain.? Noted to have ongoing conditions Bacteremia blood cx GPC 1/2 coag neg staph Started on vancomycin, will stop Pleuritic Chest pain secondary to large left pleural effusion Likely from the large left-sided pleural effusion, s/p thoracentesis by Dr. Sarkar on 08/20/21, 1.8L rust colored fluid removed. repeat CXR not showing pneumo, still mod sized effusion repeat CXR in the am Pain control.? Telemetry. Liver cirrhosis/ascites Nontender abdomen. Patient received therapeutic paracentesis in ER team; removed 2800cc Fluid. Given Albuminx1.? Continue home Lasix and Aldactone. History of anxiety continue home medications DISPO waiting on final blood cx, then discuss discharge DVT prophylaxis SCD boots Code status:? Full code Attending Dr. Duncan Quality Stroke Does the patient have a stroke diagnosis?: No VTE Prior VTE?: No VTE Risk Level:: Medical - moderate - high VTE Device Contraindication: N/A - Device Ordered VTE Drug Contraindication: Treatment Not Indicated
[2021-08-21 10:46] VITALS: BP 119/59; PULSE 70; O2SAT 93
[2021-08-21 10:49] VITALS: BP 133/60; PULSE 68; RESP 18; TEMP 35.5; O2SAT 94
--- NOTE | 2021-08-21 11:08 | P.DS_ITS ---
DS: Providers Provider Date of Service: 08/21/21 Date of admission: 08/18/21 20:58 Primary care physician: Hardik Claros MD Consults: 08/18/21 20:58 Consult to Gastroenterology Routine Consulting Provider: Marquez Castro Reason for consultation: Ascites/hepatic hydrothorax 08/20/21 02:57 Consult to Infectious Diseases Routine Consulting Provider: Kady Kelly Reason for consultation: bacteremia Attending physician on discharge: Renny Duncan Discharging clinician: Frances Gavin DS: Diagnosis Discharge Diagnosis (1) Ascites: Status: Acute DS: Summary Hospital Course Hospital Course: HP as per admitting provider 81-year-old female with a past medical history of aortic stenosis, anxiety, non alcoholic liver cirrhosis-decompensated with ascites-receives periodic therapeutic paracentesis, IBS presented to the hospital with a chief complaint of chest pain.?Patient reports that she has been having chest pain over the past 2 weeks, it on the left side, worsens with deep inspiration and coughing; sharp in nature; has seen the PCP as outpatient who did a chest x-ray and noted to have large pleural effusion on the left side and recommended to go to the ER for further evaluation.?Patient reports that she has been taking her diuretics at home; and has regular paracentesis; 1 scheduled on 08/21/21 at [facility]; Denies any abdominal pain Denies any fever chills. Reports cough-no sputum production.? Denies any urinary symptoms.? Review of all other systems is negative except mentioned above. ER course: Per ER team patient noted to be saturating 92% on room air; EKG was nonischemic; diminished lung sounds on the left side; abdomen is distended and phone; planned for therapeutic paracentesis in the ER.? ER team also mentioned that no concern for SBP; admitted for further management . Bacteremia. Negative blood cx GPC /2. Started on vancomycin however subsequently stopped when cultures came back as coag-negative staph Pleuritic Chest pain secondary to large left pleural effusion s/p thoracentesis by Dr. Sarkar on 08/20/21, 1.8L rust colored fluid removed. repeat CXR not showing pneumo, still mod sized effusion thoracentesis fluid showed no organism growth Liver cirrhosis/ascites Nontender abdomen. Patient received therapeutic paracentesis in ER team; removed 2800cc Fluid. Given Albuminx1.? Continue home Lasix and Aldactone. Paracentesis fluid showed no organism growth Follow-up with primary care provider for further need of paracentesis or thoracentesis Time Spent with Patient Time attestation: Total time spent providing and/or coordinating discharge services: Discharge coordination time: Greater than 30 minutes Quality: Stroke Does the patient have a stroke diagnosis?: No Physical Exam Vital Signs: Vital Signs: Last Vital Signs Temp 96 F L 08/21/21 10:49 Pulse 68 08/21/21 10:49 Resp 18 08/21/21 10:49 BP 133/60 08/21/21 10:49 Pulse Ox 94 08/21/21 10:49 Oxygen Flow Rate 2 08/18/21 18:30 BMI result Body Mass Index 29.9 Appearing in no acute distress head is normocephalic atraumatic eyes pupils are PERRLA sclera is anicteric mouth throat mucous membranes are intact and moist neck is supple no lymphadenopathy, no JVD noted lung sounds are clear to auscultation heart regular rate rhythm, clear S1, S2 positive bowel sounds, abdomen is soft, nontender neuro patient is alert x3, no focal deficits DS: Data Data Completed and Pending Labs on day of discharge: Laboratory Results - last 24 hr 08/21/21 08/21/21 07:02 07:02 WBC 7.7 RBC 2.94 L Hgb 10.6 L Hct 31.3 L MCV 106.5 H MCH 36.1 H MCHC 33.9 RDW 14.8 Plt Count 94 L MPV 9.8 Absolute Nucleated RBC 0.000 Nucleated RBC % (auto) 0.0 Sodium 134 L Potassium 4.7 Chloride 104 Carbon Dioxide 24 Anion Gap 11 L BUN 30 H Creatinine 1.12 Estim Creat Clear Calc 39.3 Estimated GFR 47 Random Glucose 82 Calcium 8.1 L Preliminary micro results at discharge 08/18/21 22:05 Blood Culture - Preliminary Blood - Venous No growth after 24 hours. 08/19/21 11:50 Routine Culture - Preliminary Thoracentesis Fluid No growth to date. Anaerobic Culture - Preliminary No growth to date. 08/18/21 23:25 Routine Culture - Preliminary Abdominal Fluid No growth to date. Anaerobic Culture - Preliminary No growth to date. Discharge Plan Discharge Anticipated Discharge Date/Time: 08/21/21 11:02 Patient Disposition: Home Health Service Discharge Diagnosis: Pleural effusion status post thoracentesis Ascites status post paracentesis Referrals: Hardik Claros MD [Primary Care Provider] - 1 Week Discharge Medications: Continued vitamin B complex Tablet Extended Release 1 tab PO DAILY RF: 0 spironolactone 100 mg tablet 1 tab PO DAILY RF: 0 acetaminophen 500 mg Tablet 500 mg PO Q6H PRN (Reason: Pain (Scale Score 1-3)) RF: 0 hydroxyzine HCl 25 mg tablet 1 tab PO TID PRN (Reason: Anxiety) RF: 0 lactulose 10 gram/15 mL solution 30 ml PO BID RF: 0 multivitamin Tablet 1 tab PO DAILY RF: 0 alprazolam 0.25 mg Tablet 0.25 mg PO DAILY PRN (Reason: Anxiety) RF: 0 furosemide 40 mg tablet 40 mg PO DAILY RF: 0 Discharge Orders: Discharge Order (Routine); Ordered 08/21/21 Ordered By: Frances Gavin Diet: advance to usual diet Activity on Discharge: As tolerated Stand Alone Forms: Patient Portal Discharge page Care Plan Goals: maintaining normal fluid balance Health Concerns: Pleural effusion status post thoracentesis Ascites status post paracentesis Plan of Treatment: Follow-up with your primary care provider if you experience an increase of fluid in your abdomen or have shortness of breath, you may require further draining of your lung or abdomen Assessment: see discharge summary
--- NOTE | 2021-08-21 11:35 | MHC.CM.PN ---
Addendum entered by Nina Simmons 08/21/21 15:32: referrasl to the following were made [facility], [facility], [facility] , [facility], [facility], [facility], [facility] THEY DO NOT TAKE HNE MANAGED MEDICARE AND OR NO STAFFING AVAILABILITY. 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 CONFIRMED COVID VACCINATIONS X2 AND PCP DR MCDONOUGH . TRANSPORTATION FAMILY DISCHARGE PLAN HOME WITH NEW [facility] MEDICARE IMM 08/21/21 MOLST FORM UPLOADED TO [facility] AND PLACED IN PATIENTS HARD CAHRT. INFORMATION GIVEN TO PATIENT ON [facility] CARE FOR HOME HEALTH SERVICES SHE HAS INTERMEDIATE CARE INSURANCE
--- NOTE | 2021-08-21 11:38 | W.MHC.F2F ---
Service Date Service Date: 08/21/21 Encounter Date of encounter: 08/21/21 Reasons for Services Signs and symptoms assessed: Weakness Reason for residential: CV/CP assess and/or care Reason for physical therapy: home safety and mobility and therapeutic exercises Homebound: Leaving the home is medically contraindicated at this time without the asist of a device and/or another person due th the listed conditions above and below. Reason homebound: unsteady gait / fall risk and weakness related to hospital stay Certification: Based on the above findings, I certify that this patient is confined to the home and needs intermittent residential care, physical therapy and/or speech therapy, or continues to need occupational therapy. The patient is under my care, and I have initiated the establishment of the plan of care. The patient will be followed by a physician who will periodically review the plan of care.
[2021-08-21] MEDS: oxyCODONE HCl Immed Release 5 MG TABLET PO (11:49)
[2021-08-21 15:13] VITALS: BP 123/58; PULSE 67; RESP 18; TEMP 37.1; O2SAT 94
== END 2021-08-21 16:47 | disposition home health service (06) ==
LOC: HO.ED 19:01 → HO.EDOVER 21:07 → HO.S3 08-19 17:23
PROVIDERS: Physician Assistant; Admitting Provider Hospitalist; Emergency Provider Emergency Medicine; PCP Internal Medicine; Visit Provider Nurse Practitioner Acute Care
DX: K74.60 Unspecified cirrhosis of liver (principal); J91.8 Pleural effusion in other conditions classified elsewhere; R18.8 Other ascites; J98.19 Other pulmonary collapse; K58.9 Irritable bowel syndrome, unspecified; F41.9 Anxiety disorder, unspecified; Z20.822 Contact with and (suspected) exposure to COVID-19; Z79.899 Other long term (current) drug therapy
CPT/HCPCS: 32555; 36415; 71045; 71250; 80048; 80076; 81003; 82042; 82140; 82945; 82947; 83605; 83615; 83690; 83735; 83880; 84155; 84157; 84484; 85025; 85027; 85610; 85730; 87040; 87071; 87073; 87116; 87147; 87205; 87635; 89051; 93005; 96365; 96367; 97162; 99285; 99291; J1170; J2543; J3370; P9047

== ENCOUNTER 2021-09-21 16:17 | Inpatient (IN) | payer OTHER, SELFPAY ==
--- NOTE | ~2021-09-21 | CT_ITS ---
EXAMINATION: CT ABDOMEN AND PELVIS WITH CONTRAST CLINICAL INFORMATION: Abdominal pain COMPARISON: Prior chest CT TECHNIQUE: Multidetector volumetric images were obtained from the superior aspect of the liver through the pubic symphysis following administration 85 mL of Omnipaque 350 intravenous contrast. Sagittal and coronal reformatted images were obtained on the technologist's workstation. Oral contrast: No This CT examination was performed using dose optimization techniques as appropriate, variously including the following: *Automated exposure control *Adjustment of mA and/or kV according to patient size (this includes techniques or standardized protocols for targeted exams where dose is matched to indication/reason for exam; i.e. extremities or head) *Use of iterative reconstruction technique DLP: 819 mGy-cm FINDINGS: LUNG BASES: See report of chest CT same day. Large left pleural effusion with collapse of the left lower lobe. Small right-sided pleural effusion. LIVER, GALLBLADDER, AND BILIARY TREE: The liver is nodular and small consistent with cirrhosis. Moderate volume of ascites is present. The umbilical vein is tiny. The portal vein is patent. There is a large portal to right renal vein shunt with huge varices present in the region of the jam hepatis and below.. The gallbladder is unremarkable with no evidence of radiopaque gallstones, gallbladder wall thickening, or obvious pericholecystic inflammatory changes. PANCREAS: Unremarkable. SPLEEN: Spleen measures 13.8 cm. A few small splenules are present ADRENAL GLANDS: Unremarkable. KIDNEYS AND URETERS: The kidneys are normal in size, shape, and attenuation. A large Bosniak class I parapelvic cyst is present on the left. This needs no further imaging follow-up. No hydronephrosis, hydroureter, or calculi seen. No perinephric stranding. BLADDER: Unremarkable. GASTROINTESTINAL TRACT: There is a 1.5 cm lipoma at the distal second portion of the duodenum. The small and large bowel are unremarkable. The appendix is is not seen but there is no evidence of appendicitis. ABDOMINAL WALL: No significant hernia is appreciated. LYMPH NODES: No retroperitoneal lymphadenopathy. VASCULAR: See discussion above regarding portal venous system and varices. There is marked aorta iliofemoral atherosclerotic change without aneurysm. PELVIC VISCERA: An anteverted uterus is present. An abnormal adnexal mass is not seen. OSSEOUS STRUCTURES: Degenerative changes are present in the spine most marked from L2 through L4. No bony destructive lesions are seen. CT/CT abdomen pelvis w con IMPRESSION: Cirrhosis with portal hypertension, splenomegaly, varices and a 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 Fleischner guidelines were followed.
--- NOTE | ~2021-09-21 | CT_ITS ---
EXAMINATION: CT ANGIOGRAM OF THE CHEST WITH AND WITHOUT CONTRAST (CT PULMONARY ANGIOGRAM FOR PE) CLINICAL INFORMATION: Reason for Exam pleuritic cp COMPARISON: CT of chest 08/18/2021 TECHNIQUE: Prior to contrast administration, noncontrast localization images were obtained. Subsequently, multidetector volumetric imaging was performed from the thoracic inlet to below the diaphragms following the administration of 100 mL Omnipaque 350 intravenous contrast. No contrast reaction reported Sagittal, coronal, and MIP oblique sagittal reformatted images were obtained on the CT workstation, uploaded to PACS, and reviewed. This CT examination was performed using dose optimization techniques as appropriate, variously including the following: *Automated exposure control *Adjustment of mA and/or kV according to patient size (this includes techniques or standardized protocols for targeted exams where dose is matched to indication/reason for exam; i.e. extremities or head) *Use of iterative reconstruction technique Total exam dose-length product 891 mGy-cm FINDINGS: QUALITY OF STUDY/CONTRAST BOLUS: Satisfactory. PULMONARY ARTERIES: No central or segmental pulmonary emboli. THORACIC AORTA: No aneurysm or dissection. LUNGS AND PLEURA: There is a large left pleural effusion with compressive atelectasis and collapse of the left lower lobe. These appearances are improved since the prior study. Small right pleural effusion is present which is new. No suspicious lung masses are seen. MEDIASTINUM: Normal heart size. No pericardial effusion. No hilar or mediastinal lymphadenopathy. No evidence of septal bowing or right heart strain. CHEST WALL/AXILLA: No axillary or internal mammary lymphadenopathy. Bilateral breast prostheses are present. OSSEOUS STRUCTURES: No acute or suspicious osseous abnormality. UPPER ABDOMEN: The liver is nodular in appearance and there is ascites and probable splenomegaly consistent with cirrhosis and portal hypertension No reflux of contrast into the hepatic veins to suggest elevated right heart pressures. CT/CT angio chest PE protocol IMPRESSION: 1. No evidence of pulmonary emboli. 2. Large left pleural effusion with small right effusion with associated left lower lobe collapse. The left-sided effusion is improved. The right-sided effusion is new. 3. For abdominal findings see CT abdomen and pelvis same day VTE: negative
--- NOTE | ~2021-09-21 | US_ITS ---
EXAMINATION: XR CHEST US-GUIDED THORACENTESIS, PORTABLE, LEFT CLINICAL INFORMATION: Moderate to large left pleural effusion. COMPARISON: None TECHNIQUE: Following explaining ultrasound-guided left thoracentesis with patient sitting upright procedure, benefits and risk, a written consent was obtained. Patient was placed upright sitting on a stretcher and preliminary ultrasound imaging was obtained the left posterior chest. An optimal site was selected and marked along infrascapular line. 1% lidocaine was injected at the puncture site. Through a small skin incision, a 5 Amharic Yueh catheter was advanced into the left posterior pleural space. After observing fluid return, stylet was withdrawn and catheter connected to vacuum bottle via connecting cannula. After obtaining all fluid and observing no more fluid return with patient coughing, the needle is withdrawn. Complete hemostasis achieved at puncture site. Sterile dressing applied postprocedure. Subsequently 2 view chest was to be obtained. FINDINGS: 1. On preliminary ultrasound imaging, there is moderate left pleural effusion seen. 2. Approximately one liter of red clear fluid was drained. Fluid was sent to lab as per referring physician's orders. CHEST X-RAY: 2 views of the chest revealed residual left pleural effusion with underlying atelectasis. No pneumothorax seen. There is no residual pleural effusion noted. The right lung is clear. The heart size and pulmonary vascularity is normal. No gross bony abnormality seen. US/US thoracentesis IMPRESSION: 1. Successful ultrasound-guided left thoracentesis performed with approximately 1 L of red clear fluid drained. 2. No pneumothorax seen status post left thoracentesis. There is a left lower lobe collapse.
[2021-09-21 16:27] VITALS: BP 148/72; BP 173/67; PULSE 80; PULSE 89; RESP 20; TEMP 36.9; O2SAT 96; O2SAT 97; BMI 26.0
--- NOTE | 2021-09-21 17:04 | ED_ITS ---
HPI - Abdominal Pain General Chief Complaint: Abdominal Pain Stated Complaint: Abdominal Pain Time Seen by Provider: 09/21/21 16:33 Source: patient Mode of arrival: EMS Limitations: no limitations History of Present Illness HPI narrative: 81-year-old female with a past medical history of aortic stenosis, cirrhosis, ascites s/p multiple paracentesis', IBS, presenting to the emergency department with complaints of abdominal distention,lower extremity swelling and pleuritic chest pain X 1 week worsening. Patient reports frequent paracenteis last one she got about 1 L out. She tells me she also has a history of L. pleural effusion. She tells me she has lower extremity edema that's worsening despite taking her d iuretics. She tells me she is having diffuse abdominal pain. She reports some shortness of breath worse with exertion and she also reports intermittent chills. Denies chest pain, nausea, vomiting, fevers, weakness, headache, dizzines, sore thorat, cough. MD elicited complaint: abdominal pain Onset (ago): week(s) Pain Consistency: constant Location: diffuse Severity: severe Quality: fullness Radiation: none Migration to: no migration Exacerbating factors: nothing and movement Relieving factors: nothing Associated symptoms: denies other symptoms Related Data Home Medications Medication Instructions Recorded Confirmed furosemide 40 mg tablet 40 mg PO DAILY 06/08/21 08/18/21 lactulose 10 gram/15 mL oral 30 ml PO BID 06/13/21 08/19/21 solution alprazolam 0.25 mg tablet 0.25 mg PO DAILY PRN 06/14/21 08/18/21 multivitamin 1 tab PO DAILY 06/14/21 08/18/21 acetaminophen 500 mg tablet 500 mg PO Q6H PRN 08/18/21 08/18/21 hydroxyzine HCl 25 mg tablet 1 tab PO TID PRN 08/18/21 08/18/21 spironolactone 100 mg tablet 1 tab PO DAILY 08/18/21 08/18/21 vitamin B complex 1 tab PO DAILY 08/18/21 08/18/21 Previous Rx's Medication Instructions Recorded oxycodone 5 mg tablet 5 mg PO Q8H PRN #9 tab 08/21/21 Allergies Allergy/AdvReac Type Severity Reaction Status Date / Time latex Allergy Intermediate Unknown Verified 06/16/21 08:01 Review of Systems Review of Systems Constitutional : No Weight loss, No Fever, + Chills, No Fatigue, + Malaise ENT/Mouth : No sore throat, No Rhinorrhea Eyes: No Eye Pain, No Swelling, No Redness Cardiovascular : No Chest Pain, No SOB, + Dyspnea on Exertion, No Orthopnea, No Edema, No Palpitations Respiratory : No Cough, No Sputum, No Wheezing Gastrointestinal : No Nausea, No Vomiting, No Diarrhea, No Constipation, + abdominal Pain, No Hematochezia, No Melena Genitourinary : No Dysuria, No Urinary Frequency, No Hematuria, Musculoskeletal : No joint pain, No Myalgias, No Joint Swelling Skin : No Skin Lesions, No rash Neuro : No Weakness, No Numbness, No Dizziness, No Headache Psych : No Anxiety/Panic, No Depression All other systems reviewed and are negative Yes all other systems are reviewed and are negative Physical Exam Vital Signs: Vital Signs: Last Vital Signs Temp 98.4 F 09/21/21 21:09 Pulse 79 09/21/21 21:09 Resp 18 09/21/21 21:09 BP 135/57 L 09/21/21 21:09 Pulse Ox 93 09/21/21 21:09 BMI result Body Mass Index 26.0 VSS Appearance: Alert.? Oriented X3.? No acute distress.? Head: Normocephalic, atraumatic, no step-offs or deformities Eyes: Pupils equal, round and reactive to light.? ENT: Pharynx normal.? Neck: Normal inspection.? Neck supple.? CVS: Normal heart rate and rhythm.? Pulses normal.? Respiratory: No respiratory distress.? Breath sounds diminished to LLL when compared to RLL.? Abdomen: +Tense, distended, normoactive bowel sounds and diffusely tender.?+ fluid wave Skin: Skin warm and dry.? Normal skin color.? Normal skin turgor.? Extremities: 2+ lower extremity edema.? No calf ttp. 5/5 strength to bilateral upper and lower extremities Back: No midline tenderness, no C-spine tenderness, full range of motion, no CVA tenderness bilaterally Neuro: Oriented X 3.? No motor deficit.? No sensory deficit. Course Reevaluation(s) Reevaluation #1: Patient's CBC appears to be at baseline with a macrocytic anemia noted. Coags also noted to be at baseline. D-dimer was elevated initially that is why CTA of the chest was ordered. Patient's bilirubin is noted to be elevated at 5.7 however, it is noted to be chronically elevated, patient's transaminases mildly elevated. Patient's albumin 2.8 will give albumin. Time: 20:00 Reevaluation #2: Spoke to Esperanza from thoracics who states that if patient is stable we can wait until tomorrow morning to do a thoracentesis. However, if patient becomes unstable thoracentesis should be done at the bedside. Time: 20:29 Reevaluation #3: An ultrasound-guided paracentesis was done at the bedside with Dr. Nascimento. A time-out was done, verbal and written consent obtained and in the chart. Using sterile technique .Drained 4 L of yellow fluid from LLQ. Patient tolerated pr ocedure well. Dr. Daugherty will admit to hospitalist team Time: 00:20 MDM - Abdominal Pain MDM Narrative Medical decision making narrative: 1715 81 yo f pmhx aortic stenosis, cirrhosis, ascites s/p multiple paracentesis', IBS, presenting to the emergency department with complaints of ascites, lower extremity swelling and pleuritic chest pain X 1 week worsening. PE significant for Tense, distended abdomen normoactive bowel sounds and diffusely tender. LLL w/ diminished breahtsounds. She has a positive fluid wave. 2+ pitting edema to b/l lower extremities. Plan- labs, US, EKG, dimer, Medical Records Attestation: I reviewed the patient's medical records. Lab Data Attestation: I reviewed the patient's lab results. Result diagrams: 09/21/21 17:34 09/21/21 17:34 Labs: Lab Results 09/21/21 09/21/21 09/21/21 Range/Units 17:33 17:33 17:34 WBC 6.5 (4.8-10.8) X10*3/uL RBC 3.33 L (4.20-5.50) X10*6/uL Hgb 11.8 L (12.0-16.0) g/dl Hct 34.6 L (37.0-47.0) % MCV 103.9 H (80.0-98.0) fL MCH 35.4 H (27.0-33.0) pg MCHC 34.1 (31.0-35.0) g/dl RDW 14.6 (11.0-16.0) % Plt Count 96 L (160-400) X10*3/uL MPV 10.2 (9.4-12.3) fL Immature Gran % (Auto) 0.3 (0.0-0.4) % Neut % (Auto) 69.1 (45-73) % Lymph % (Auto) 15.2 L (20-40) % [place] % (Auto) 11.8 H (2-11) % Eos % (Auto) 2.8 (0-4) % Baso % (Auto) 0.8 (0-2) % Lymph # (Auto) 1.0 L (1.2-4.9) X10*3/uL [place] # (Auto) 0.8 (0.1-1.2) X10*3/uL Eos # (Auto) 0.2 (0.0-0.4) X10*3/uL Baso # (Auto) 0.1 (0.0-0.2) X10*3/uL Abs Immat Gran (auto) 0.02 (0.00-0.03) X10*3/uL Absolute Neuts (auto) 4.5 (2.0-8.3) x10*3/uL Absolute Nucleated RBC 0.000 (0.0-0.012) X10*3/uL Nucleated RBC % (auto) 0.0 (0.0-0.2) /100WBC PT 17.1 H (9.9-13.0) SEC INR 1.5 H (0.9-1.1) D-Dimer High Sensitivty 1179 NG/ML Sodium (135-145) mmol/L Potassium (3.3-5.1) mmol/L Chloride (96-108) mmol/L Carbon Dioxide (22-29) mmol/L Anion Gap (12-20) BUN (9-16) mg/dL Creatinine (0.5-1.4) mg/dL Estim Creat Clear Calc Estimated GFR Random Glucose (60-115) mg/dL Calcium (8.4-10.2) mg/dL Magnesium (1.6-2.6) mg/dL Total Bilirubin (0.0-1.0) mg/dL AST (5-31) U/L ALT (0-31) U/L Alkaline Phosphatase (39-117) U/L Troponin I High Sens 14.0 D (<3.5-17.0) ng/L B-Natriuretic Peptide 255 H (<100) pg/mL Total Protein (6.5-8.0) g/dL Albumin (3.5-5.0) g/dL Lipase (8-78) U/L Urine Color Urine Appearance Urine pH (5.0-8.0) Ur Specific [place] (1.005-1.025) Urine Protein (NEG-TRACE) MG/DL Urine Glucose (UA) (NEG) MG/DL Urine Ketones (NEG) MG/DL Urine Blood (NEG) Urine Nitrite (NEG) Ur Leukocyte Esterase (NEG) Urine RBC (0) /HPF Urine WBC (0-4) /HPF Ur Squamous Epith Cells /LPF Urine Bacteria /LPF Hyaline Casts /LPF Urine Mucus /LPF COVID-19 ([facility]) (Negative) COVID-19 Clin Com 09/21/21 09/21/21 09/21/21 Range/Units 17:34 17:34 19:28 WBC (4.8-10.8) X10*3/uL RBC (4.20-5.50) X10*6/uL Hgb (12.0-16.0) g/dl Hct (37.0-47.0) % MCV (80.0-98.0) fL MCH (27.0-33.0) pg MCHC (31.0-35.0) g/dl RDW (11.0-16.0) % Plt Count (160-400) X10*3/uL MPV (9.4-12.3) fL Immature Gran % (Auto) (0.0-0.4) % Neut % (Auto) (45-73) % Lymph % (Auto) (20-40) % [place] % (Auto) (2-11) % Eos % (Auto) (0-4) % Baso % (Auto) (0-2) % Lymph # (Auto) (1.2-4.9) X10*3/uL [place] # (Auto) (0.1-1.2) X10*3/uL Eos # (Auto) (0.0-0.4) X10*3/uL Baso # (Auto) (0.0-0.2) X10*3/uL Abs Immat Gran (auto) (0.00-0.03) X10*3/uL Absolute Neuts (auto) (2.0-8.3) x10*3/uL Absolute Nucleated RBC (0.0-0.012) X10*3/uL Nucleated RBC % (auto) (0.0-0.2) /100WBC PT (9.9-13.0) SEC INR (0.9-1.1) D-Dimer High Sensitivty NG/ML Sodium 136 (135-145) mmol/L Potassium 4.5 (3.3-5.1) mmol/L Chloride 102 (96-108) mmol/L Carbon Dioxide 26 (22-29) mmol/L Anion Gap 13 (12-20) BUN 17 H (9-16) mg/dL Creatinine 1.13 (0.5-1.4) mg/dL Estim Creat Clear Calc 36.4 Estimated GFR 46 Random Glucose 103 (60-115) mg/dL Calcium 8.9 D (8.4-10.2) mg/dL Magnesium 1.8 (1.6-2.6) mg/dL Total Bilirubin 5.7 H (0.0-1.0) mg/dL AST 78 H (5-31) U/L ALT 32 H (0-31) U/L Alkaline Phosphatase 121 H (39-117) U/L Troponin I High Sens (<3.5-17.0) ng/L B-Natriuretic Peptide (<100) pg/mL Total Protein 6.7 (6.5-8.0) g/dL Albumin 2.8 L (3.5-5.0) g/dL Lipase 76 (8-78) U/L Urine Color YELLOW Urine Appearance CLEAR Urine pH 6.0 (5.0-8.0) Ur Specific [place] 1.010 (1.005-1.025) Urine Protein NEG (NEG-TRACE) MG/DL Urine Glucose (UA) NEG (NEG) MG/DL Urine Ketones NEG (NEG) MG/DL Urine Blood NEG (NEG) Urine Nitrite NEG (NEG) Ur Leukocyte Esterase NEG (NEG) Urine RBC 0-2 (0) /HPF Urine WBC 0-2 (0-4) /HPF Ur Squamous Epith Cells 2+ /LPF Urine Bacteria TRACE /LPF Hyaline Casts 1-4 /LPF Urine Mucus TRACE /LPF COVID-19 ([facility]) Negative (Negative) COVID-19 Clin Com See Note Imaging Data CT scan - chest: Attestation: I personally reviewed and interpreted this imaging study as follows: Radiologist's impression: CT/CT angio chest PE protocol IMPRESSION: 1.? No evidence of pulmonary emboli. 2.? Large left pleural effusion with small right effusion with associated left lower lobe collapse. The left-sided effusion is improved. The right-sided effusion is new. 3.? For abdominal findings see CT abdomen and pelvis same day ? VTE: negative Critical Care Time Critical Care Time Critical Care Time: Yes Total Critical Care Time: 90 Attestation: Obtaining history, physical exam, reviewing labs, imaging, consult [facility], speaking to my attending, performing a bedside paracentesis. Discharge Plan Discharge Clinical Impression: Pleural effusion, Ascites, SOB (shortness of breath), Portal hypertension, Esophageal varices Patient Disposition: Admitted As Inpatient [facility] Past Medical History Attestation statement: The following information was validated with the patient. Source: old records reviewed and nursing notes reviewed Medical History Aortic stenosis Ascites Ascites Cirrhosis Irritable bowel Pleural effusion Surgical History History of colonoscopy Family History Family History Sister CAD (coronary artery disease) Social History Social History Household Members: None Housing: Condominium Do you presently have visiting nurse or other home services: Yes Alcohol intake: never Patient Tobacco Use Status: Never used Tobacco Advance Directives: Yes Advance Directives Information Provided: No Advance Directives on File: No service: Yes Current occupational status: employed
--- NOTE | 2021-09-21 17:13 | ECG_ITS ---
Test Reason : ABDOMINAL Blood Pressure : / mmHG Vent. Rate : 083 BPM Atrial Rate : 083 BPM P-R Int : 160 ms QRS Dur : 086 ms QT Int : 404 ms P-R-T Axes : 039 006 036 degrees QTc Int : 474 ms Normal sinus rhythm Normal ECG When compared with ECG of 18-AUG-2021 19:27, QT has lengthened Referred By: Denise Ennis Electronically Signed By:Shaw Walker
[2021-09-21 17:42] LABS: MANUAL DIFF FLAG NO
[2021-09-21 17:48] LABS: Basophils Absolute Auto 0.1 X10*3/uL (0.0-0.2); Basophils Percent Auto 0.8 % (0-2); Eosinophils Absolute Auto 0.2 X10*3/uL (0.0-0.4); Eosinophils Percent Auto 2.8 % (0-4); Hematocrit 34.6 % (37.0-47.0); Hemoglobin 11.8 g/dl (12.0-16.0); Imm Gran Abs Auto 0.02 X10*3/uL (0.00-0.03); Imm Gran Pct Auto 0.3 % (0.0-0.4); Lymphocytes Percent Auto 15.2 % (20-40); Mean Corpuscular HGB Conc 34.1 g/dl (31.0-35.0); Mean Corpuscular Hemoglobin 35.4 pg (27.0-33.0); Mean Corpuscular Volume 103.9 fL (80.0-98.0); Mean Platelet Volume 10.2 fL (9.4-12.3); Monocytes Absolute Auto 0.8 X10*3/uL (0.1-1.2); Monocytes Percent Auto 11.8 % (2-11); Neutrophils Absolute Auto 4.5 x10*3/uL (2.0-8.3); Neutrophils Percent Auto 69.1 % (45-73); Red Blood Count 3.33 X10*6/uL (4.20-5.50); Red Cell Distribution Width 14.6 % (11.0-16.0); White Blood Count 6.5 X10*3/uL (4.8-10.8)
[2021-09-21 17:58] LABS: Platelet Count 96 X10*3/uL (160-400)
[2021-09-21 18:00] LABS: Alanine Aminotransferase 32 U/L (0-31); Albumin Level 2.8 g/dL (3.5-5.0); Alkaline Phosphatase 121 U/L (39-117); Anion Gap 13 (12-20); Aspartate Amino Transferase 78 U/L (5-31); Bilirubin Total 5.7 mg/dL (0.0-1.0); Blood Urea Nitrogen 17 mg/dL (9-16); Calcium 8.9 mg/dL (8.4-10.2); Carbon Dioxide 26 mmol/L (22-29); Chloride 102 mmol/L (96-108); Creatinine Clr Calc Pharmacy 36.4; Estimated Glomerular Filt Rate 46; Glucose Random 103 mg/dL (60-115); Lipase 76 U/L (8-78); Magnesium 1.8 mg/dL (1.6-2.6); Potassium 4.5 mmol/L (3.3-5.1); Sodium 136 mmol/L (135-145); Total Protein 6.7 g/dL (6.5-8.0)
[2021-09-21 18:02] LABS: D Dimer High Sensitivity 1179 NG/ML
[2021-09-21 18:04] LABS: B Type Natriuretic Peptide 255 pg/mL (<100)
[2021-09-21 18:21] VITALS: BP 136/52; PULSE 85; RESP 20; O2SAT 95
[2021-09-21] MEDS: Furosemide 40 MG/4 ML VIAL IVPUSH (18:22)
[2021-09-21] MEDS: iohexoL 350 MG/ML 100 ML INFUS..BTL IV (18:45)
[2021-09-21 18:59] LABS: INTERNATIONAL NORM RATIO 1.5 (0.9-1.1); Prothrombin Time 17.1 SEC (9.9-13.0)
[2021-09-21 19:00] LABS: COVID-19 Test Negative (Negative); IDNOW Serial# 55D5AD1C
[2021-09-21 19:36] LABS: Appearance Urine CLEAR; Color Urine YELLOW; Glucose Urine UA NEG (NEG); Leukocyte Esterase Urine NEG (NEG); Nitrite Urine NEG (NEG); Urine Blood NEG (NEG); Urine Ketones NEG (NEG); Urine Protein NEG (NEG-TRACE)
[2021-09-21 19:59] LABS: RBC Urine 0-2 /HPF (0); Squamous Epithelial Cell Urine 2+ /LPF; WBC Urine 0-2 /HPF (0-4)
[2021-09-21 20:00] LABS: Bacteria Urine TRACE /LPF; Mucus Urine TRACE /LPF
[2021-09-21] MEDS: Albumin Human 25 % 100 ML IV ×2 (20:20→21:55)
[2021-09-21 21:09] VITALS: BP 135/57; PULSE 79; RESP 18; TEMP 36.9; O2SAT 93
[2021-09-21] MEDS: Lidocaine HCl 2 % MPF 5 ML VIAL INFILTRATI (22:39)
[2021-09-21] MEDS: Lidocaine HCl 2 % MPF 5 ML VIAL SUBCUT ×3 (22:40)
[2021-09-22] VITALS (8 sets, daily range): BP systolic 101–142; BP diastolic 35–89; PULSE 58–78; RESP 14–19; TEMP 36.1–36.7; O2SAT 95–97; BMI 25.1
--- NOTE | 2021-09-22 00:10 | PC.NURSE ---
Addendum entered by Ibeth Agee 09/22/21 04:26: Fluid removal from paracentesis was 4300. Original Note: Patient had paracentesis at the bedside. Fluid removal of 3300ml from left side of abdomen. Patient tolerated the procedure well. Ascites has lessened.
[2021-09-22] MEDS: LORazepam 0.5 MG TABLET PO (01:12)
[2021-09-22 01:14] LABS: MN% 92.7 %; PMN% 7.3 %; WBC Peritoneal Fluid 0.243 X10*3/uL
[2021-09-22 01:17] LABS: BF Shift QC OK YES; RBC Peritoneal Fluid < 0.002 X10*6/uL
[2021-09-22 01:39] LABS: Lymphocyte Peritoneal Fl 4 %; Monocytes Peritoneal Fl 11 %; Neutrophils Peritoneal Fluid 12 %; Other Peritioneal Fl 73 %
--- NOTE | 2021-09-22 04:27 | PC.NURSE ---
Patient continues to complain about being itchy. RONI explained that she was itchy because of her liver disease.
--- NOTE | 2021-09-22 04:42 | PC.NURSE ---
Patient has put out 1000 mls of urine through her purwick. Patient also had a bowel movement. She is scheduled to have a thoracentesis in the morning.
--- NOTE | 2021-09-22 05:25 | P.HPHOSP_ITS ---
History of Present Illness Date of Service: 09/21/21 Chief Complaint: abdominal distention This is an 81-year-old female with past medical history of aortic stenosis, nonalcoholic liver cirrhosis decompensated with ascites, receives periodic therapeutic paracentesis last received in August, history of IBS, presents to the hospital with complaints of abdominal distension as well as shortness of breath, and lower extremity edema. She reports that she was discharged from the hospital on the and did well for 2 weeks post discharge but then developed progressively worsening symptoms of shortness of breath, weakness, fatigue, wheezing, leg swelling that has improved for the past 2 days, sharp diffuse abdominal pain, as well as progressively worsening abdominal distension. She reports that her abdominal distension is so severe that she has difficulty walking And walks like a penguin.She denies any urinary symptoms. Denies any chest pain at this time, no headache or change in vision, no dizzi ness. Patient was discharged from the hospital on August 21 after being treated for pleuritic chest pain secondary to large left pleural effusion, status post thoracocentesis by Dr. Dyson on 08/20/2021. 1.8 L of risk color fluid was removed at that time. She also had liver cirrhosis with ascites at that time and underwent therapeutic paracentesis in the ED. On arrival to the ED patient hemodynamically stable with no significant abnormal vitals labs are significant for WBC count 6.5, hemoglobin of 11.8, hematocrit 34.6, PT of 17.1, INR of 1.5, BUN of 17, creatinine of 1.13, total bili of 5.7 which is chronically elevated, AST of 78, ALT of 32, alk-phos of 121, BNP of 255, UA negative, chest CT angiogram shows no evidence of pulmonary emboli, large left pleural effusion with small right effusion with associated left lower lobe collapse, left-sided effusion is improved, the right-sided effusion is new Patient underwent therapeutic paracentesis in the ED and will be admitted for further management. thoracic was consulted by the ED, plan for thoracocentesis in the a.m.. Review of Systems Review of Systems: Yes all other systems are reviewed and are negative [facility] Medical History Aortic stenosis Ascites Ascites Cirrhosis Irritable bowel Pleural effusion Family History Sister CAD (coronary artery disease) Surgical History History of colonoscopy Social History Household Members: None Housing: Condominium Do you presently have visiting nurse or other home services: Yes Alcohol intake: never Patient Tobacco Use Status: Never used Tobacco Advance Directives: Yes Advance Directives Information Provided: No Advance Directives on File: No service: Yes Current occupational status: employed Meds Allergies Allergy/AdvReac Type Severity Reaction Status Date / Time latex Allergy Intermediate Unknown Verified 06/16/21 08:01 Active Medications: Current Medications Acetaminophen (Acetaminophen 325 Mg Tablet) 650 mg PO Q6H PRN PRN Reason: Pain, Mild (Pain Scale 1-3) Al Hydroxide/Mg Hydroxide (Magnesium Hydrox/Alum Hydrox 30 Ml Oral.Susp) 30 ml PO Q4H PRN PRN Reason: Heartburn/Nausea Furosemide (Furosemide 40 Mg/4 Ml Vial) 40 mg IVPUSH BID [facility]; Protocol Last Admin: 09/22/21 00:09 Dose: Not Given Documented by: Ondansetron HCl (Ondansetron Hcl 4 Mg/2 Ml Vial) 4 mg IVPUSH Q8H PRN PRN Reason: Nausea and Vomiting Sodium Chloride (0.9 % Sodium Chloride Flush 3 Ml Syringe) 3 ml IVFLUSH QSHIFT [facility] Last Admin: 09/22/21 00:09 Dose: Not Given Documented by: Home Medications Medication Instructions Recorded Confirmed Last Taken Type furosemide 40 mg tablet 40 mg PO DAILY 06/08/21 08/18/21 08/18/21 History lactulose 10 gram/15 mL oral 30 ml PO BID 06/13/21 08/19/21 08/18/21 History solution alprazolam 0.25 mg tablet 0.25 mg PO DAILY PRN 06/14/21 08/18/21 08/18/21 History multivitamin 1 tab PO DAILY 06/14/21 08/18/21 08/18/21 History acetaminophen 500 mg tablet 500 mg PO Q6H PRN 08/18/21 08/18/21 08/18/21 History hydroxyzine HCl 25 mg tablet 1 tab PO TID PRN 08/18/21 08/18/2122 History spironolactone 100 mg tablet 1 tab PO DAILY 08/18/21 08/18/21 08/18/21 History vitamin B complex 1 tab PO DAILY 08/18/21 08/18/21 08/18/21 History tretinoin 0.05 % topical cream 1 applic TOPICAL BEDTIME 09/22/21 09/22/21 Unknown History Physical Exam Vital Signs and Narrative: Vital Signs: Last Vital Signs Temp 98.4 F 09/21/21 21:09 Pulse 78 09/22/21 01:05 Resp 19 09/22/21 01:05 BP 124/61 09/22/21 01:05 Pulse Ox 96 09/22/21 01:05 BMI result Body Mass Index 26.0 Const: General: cooperative and no acute distress Orientation/consciousness: patient oriented x3 Eyes: General: appearance normal, both eyes and all related structures Pupils: Equal, round and reactive pupils present Resp: Other: crackles bilaterally Effort & Inspection: normal respiratory effort Cardio: Rate: regular rate Rhythm: regular rhythm GI: Other: distended, soft, no rebound or guarding Palpation (GI): Soft to palpation Auscultation: normal bowel sounds Skin: General skin exam: no rashes or lesions noted Neuro: General: patient oriented x3 Cranial nerves: Yes Equal, round and reactive pupils present Cognition (Neuro): normal cognition Extrem: Other: no edema appreciated in lower extremities on exam General: Yes normal to inspection and Yes no pedal edema Results Labs CBC and Chem 7: 09/21/21 17:34 09/21/21 17:34 Labs: Laboratory Results - last 24 hr 09/21/21 09/21/21 09/21/21 17:33 17:33 17:34 MCV 103.9 H MCH 35.4 H MCHC 34.1 RDW 14.6 Plt Count 96 L MPV 10.2 Immature Gran % (Auto) 0.3 Neut % (Auto) 69.1 Lymph % (Auto) 15.2 L [place] % (Auto) 11.8 H Eos % (Auto) 2.8 Baso % (Auto) 0.8 Lymph # (Auto) 1.0 L [place] # (Auto) 0.8 Eos # (Auto) 0.2 Baso # (Auto) 0.1 Abs Immat Gran (auto) 0.02 Absolute Neuts (auto) 4.5 Absolute Nucleated RBC 0.000 Nucleated RBC % (auto) 0.0 PT 17.1 H INR 1.5 H D-Dimer High Sensitivty 1179 Anion Gap Estim Creat Clear Calc Estimated GFR Random Glucose Calcium Magnesium Total Bilirubin AST ALT Alkaline Phosphatase B-Natriuretic Peptide 255 H Total Protein Albumin Lipase Urine Color Urine Appearance Urine pH Ur Specific [place] Urine Protein Urine Glucose (UA) Urine Ketones Urine Blood Urine Nitrite Ur Leukocyte Esterase Urine RBC Urine WBC Ur Squamous Epith Cells Urine Bacteria Hyaline Casts Urine Mucus Peritoneal WBC Peritoneal RBC Periton Neutrophils Periton Lymphocytes Peritoneal Monocytes Peritoneal Other Cells COVID-19 ([facility]) COVID-19 Clin Com 09/21/21 09/21/21 09/21/21 17:34 17:34 19:28 MCV MCH MCHC RDW Plt Count MPV Immature Gran % (Auto) Neut % (Auto) Lymph % (Auto) [place] % (Auto) Eos % (Auto) Baso % (Auto) Lymph # (Auto) [place] # (Auto) Eos # (Auto) Baso # (Auto) Abs Immat Gran (auto) Absolute Neuts (auto) Absolute Nucleated RBC Nucleated RBC % (auto) PT INR D-Dimer High Sensitivty Anion Gap 13 Estim Creat Clear Calc 36.4 Estimated GFR 46 Random Glucose 103 Calcium 8.9 D Magnesium 1.8 Total Bilirubin 5.7 H AST 78 H ALT 32 H Alkaline Phosphatase 121 H B-Natriuretic Peptide Total Protein 6.7 Albumin 2.8 L Lipase 76 Urine Color YELLOW Urine Appearance CLEAR Urine pH 6.0 Ur Specific [place] 1.010 Urine Protein NEG Urine Glucose (UA) NEG Urine Ketones NEG Urine Blood NEG Urine Nitrite NEG Ur Leukocyte Esterase NEG Urine RBC 0-2 Urine WBC 0-2 Ur Squamous Epith Cells 2+ Urine Bacteria TRACE Hyaline Casts 1-4 Urine Mucus TRACE Peritoneal WBC Peritoneal RBC Periton Neutrophils Periton Lymphocytes Peritoneal Monocytes Peritoneal Other Cells COVID-19 ([facility]LI) Negative COVID-19 Clin Com See Note 09/22/21 01:04 MCV MCH MCHC RDW Plt Count MPV Immature Gran % (Auto) Neut % (Auto) Lymph % (Auto) [place] % (Auto) Eos % (Auto) Baso % (Auto) Lymph # (Auto) [place] # (Auto) Eos # (Auto) Baso # (Auto) Abs Immat Gran (auto) Absolute Neuts (auto) Absolute Nucleated RBC Nucleated RBC % (auto) PT INR D-Dimer High Sensitivty Anion Gap Estim Creat Clear Calc Estimated GFR Random Glucose Calcium Magnesium Total Bilirubin AST ALT Alkaline Phosphatase B-Natriuretic Peptide Total Protein Albumin Lipase Urine Color Urine Appearance Urine pH Ur Specific [place] Urine Protein Urine Glucose (UA) Urine Ketones Urine Blood Urine Nitrite Ur Leukocyte Esterase Urine RBC Urine WBC Ur Squamous Epith Cells Urine Bacteria Hyaline Casts Urine Mucus Peritoneal WBC 0.243 Peritoneal RBC < 0.002 Periton Neutrophils 12 Periton Lymphocytes 4 Peritoneal Monocytes 11 Peritoneal Other Cells 73 COVID-19 ([facility]) COVID-19 Clin Com Imaging Radiologist's Impressions: Impressions Abdomen/Pelvis CT 09/21/21 19:13 IMPRESSION: Cirrhosis with portal hypertension, splenomegaly, varices and a 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 Fleischner guidelines were followed. Chest CTA 09/21/21 19:13 IMPRESSION: 1. No evidence of pulmonary emboli. 2. Large left pleural effusion with small right effusion with associated left lower lobe collapse. The left-sided effusion is improved. The right-sided effusion is new. 3. For abdominal findings see CT abdomen and pelvis same day VTE: negative Assessment and Plan (1) Pleural effusion: Status: Acute (2) Ascites: Status: Acute (3) SOB (shortness of breath): Status: Acute (4) Cirrhosis: Status: Acute Plan This is an 81-year-old female with past medical history of decompensated nonalcoholic liver failure with recurrent ascites treated with intermittent p aracentesis presents to the hospital with complaints of abdominal distension as well as shortness of breath found to have large pleural effusion # acute worsening dyspnea - likely secondary to pleural effusion secondary to liver failure/abdominal ascites - heart failure cannot be ruled out - patient does have elevated BNP - patient had this same pleural effusion in August underwent thoracocentesis - at this time will consult thoracic surgery for thoracocentesis in a.m. - consult cardiology to workup for possible CHF due to possible right sided heart failure - will obtain echocardiogram # large pleural effusion - likely secondary to ascites - plan for thoracocentesis and - monitor respiratory status # decompensated liver cirrhosis, with ascites - abdominal CT shows cirrhosis with portal hypertension, splenomegaly, varices and a large portal to right renal vein shunt - status post para centesis in the ED - will follow cultures - given 1 dose of IV Lasix, will continue p.o. Lasix and spironolactone # CHF? - Has elevated BNP, pleural effusion on chest x-ray, - will obtain echocardiogram, consult Cardiology DVT prophylaxis: SCDs Quality Stroke Does the patient have a stroke diagnosis?: No VTE Prior VTE?: No VTE Risk Level:: Medical - moderate - high VTE Device Contraindication: N/A - Device Ordered VTE Drug Contraindication: Treatment Not Indicated
[2021-09-22] MEDS: Albumin Human 25 % 50 ML 100 ML IV (06:25)
--- NOTE | 2021-09-22 07:36 | PHA.MEDREC ---
Pharmacy Consult ? Medication Reconciliation Pharmacy has reviewed the medication reconciliation completed by Ibeth. There are no remarkable issues for provider's attention. Tish Han, FritzD
[2021-09-22 07:45] LABS: MANUAL DIFF FLAG NO
[2021-09-22 07:56] LABS: Basophils Percent Auto 1.1 % (0-2); Eosinophils Absolute Auto 0.2 X10*3/uL (0.0-0.4); Eosinophils Percent Auto 5.8 % (0-4); Hematocrit 30.1 % (37.0-47.0); Hemoglobin 10.6 g/dl (12.0-16.0); Imm Gran Abs Auto 0.01 X10*3/uL (0.00-0.03); Imm Gran Pct Auto 0.3 % (0.0-0.4); Lymphocytes Absolute Auto 0.9 X10*3/uL (1.2-4.9); Mean Corpuscular HGB Conc 35.2 g/dl (31.0-35.0); Mean Corpuscular Hemoglobin 35.8 pg (27.0-33.0); Mean Corpuscular Volume 101.7 fL (80.0-98.0); Mean Platelet Volume 9.9 fL (9.4-12.3); Monocytes Absolute Auto 0.6 X10*3/uL (0.1-1.2); Monocytes Percent Auto 17.7 % (2-11); Neutrophils Absolute Auto 1.9 x10*3/uL (2.0-8.3); Neutrophils Percent Auto 51.1 % (45-73); Red Blood Count 2.96 X10*6/uL (4.20-5.50); Red Cell Distribution Width 14.3 % (11.0-16.0); White Blood Count 3.6 X10*3/uL (4.8-10.8)
[2021-09-22 07:59] LABS: Platelet Count 70 X10*3/uL (160-400)
[2021-09-22] MEDS: 0.9 % Sodium Chloride Flush 3 ML SYRINGE IVFLUSH ×2 (08:00→23:22)
[2021-09-22 08:01] LABS: Anion Gap 11 (12-20); Blood Urea Nitrogen 15 mg/dL (9-16); Calcium 8.8 mg/dL (8.4-10.2); Carbon Dioxide 30 mmol/L (22-29); Chloride 102 mmol/L (96-108); Creatinine Clr Calc Pharmacy 47.9; Estimated Glomerular Filt Rate > 60; Glucose Random 96 mg/dL (60-115); Potassium 3.5 mmol/L (3.3-5.1); Sodium 139 mmol/L (135-145)
--- NOTE | 2021-09-22 09:00 | CA_ITS ---
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 There is moderately increased left ventricular wall thickness. The left ventricular systolic function is hyperdynamic. The visually estimated ejection fraction is >70%. - Normal right ventricular cavity size and systolic function. - The left atrium is severely dilated. - There is moderate aortic valve stenosis. - There is a pleural effusion. Findings Left Ventricle Normal left ventricular cavity size. There is moderately increased left ventricular wall thickness. The left ventricular systolic function is hyperdynamic. The visually estimated ejection fraction is >70%. There is no evidence of regional wall motion abnormalities. Abnormal diastolic function is noted. Spectral Doppler is indicative of an impaired relaxation filling pattern. E/E prime ratio is between 8 and 15 consistent with indeterminate filling pressures. Right Ventricle Normal right ventricular cavity size and systolic function. Atria The left atrium is severely dilated. Aortic Valve There is mild calcification of the aortic valve. There is mild thickening of the aortic valve. There is moderate aortic valve stenosis. The peak aortic velocity is 3.54 m/s. The mean gradient is 26 mmHg. The aortic valve area is 1.72 cm2. There is no aortic valve regurgitation. Mitral Valve There is severe mitral annular calcification. There is no mitral valve regurgitation. There is no mitral valve stenosis. Pulmonic Valve The pulmonic valve is likely normal. Tricuspid Valve Normal tricuspid valve structure and function. There is trace tricuspid valve regurgitation. Tricuspid regurgitation envelope is inadequate for calculation of right ventricular systolic pressure. Normal right atrial pressure. Great Vessels All visible segments of the aorta are normal in size. The pulmonary artery was not well visualized. Venous The inferior vena cava is normal in size and collapses greater than 50% with inspiration. Pericardium/Pleural There is no evidence of pericardial effusion. There is a pleural effusion. Measurements 2D Linear Measurements IVSd: 1.26 0.6-0.9/0.6-1.0 cm LVIDd: 3.36 3.9-5.3/4.2-5.9 cm LVIDd Index: 1.98 2.4-3.2/2.2-3.1 cm/m2 LVIDs: 2.31 2.0-3.6 cm LVPWd: 1.25 0.7-1.1 cm Ao Root: 2.90 2.1-3.5 cm LA Diam: 3.60 2.7-3.8/3.0-4.0 cm LAIDs Index: 2.12 1.5-2.3 cm/m2 LV Mass: 170.90 67-162/88-224 g LV Mass Index: 100.53 43-95/49-115 g/m2 LVOT Diam: 2.00 3.0+(-)1.3 cm Mitral Valve MV Pk E: 0.73 MV PK A: 1.11 MV Decel Time: 221.00 E/A: 0.70 E'Lateral: 5.66 E'Medial: 6.64 E/E' Med: 11.00 E/E' Lat: 12.90 PHT: 65.00 MVA PHT: 3.38 Decel [place]: 3.30 Aortic Valve AoV Pk Vignesh: 3.54 AoV Mn Vignesh: 2.36 AoV VTI: 0.75 AoV Pk Grad: 50.00 Aov Mn Grad: 26.00 ANUEL Cont.VTI: 1.72 LVOT LVOT Pk Vignesh: 1.58 LVOT Mn Vignesh: 1.09 LVOT VTI: 0.41 LVOT Pk Grad: 10.00 LVOT Mn Grad: 6.00 LVOT Diam: 2.00 LVOT Area: 3.14 Diastolic Function MV Pk E: 0.73 MV Pk A: 1.11 E/A: 0.70 E'Medial: 6.64 E/E' Med: 11.00 E' Laterial: 5.66 E/E' Lat: 12.90 Tricuspid Valve TR Pk Vignesh: 2.21 TR Pk Grad: 20.00 Great Vessels Aorta Ao Root-2D: 2.90 2.0-3.7 cm Ao Asc: 2.40 2.1-3.4 cm Pulmonary Valve PV Pk Vignesh: 1.99 Peak PV Grad: 16.00 Updated in Other Vendor System with Status of Final Shaw Walker MD electronically signed on 09/22/2021 6:08:29 PM with status of Final
[2021-09-22] MEDS: Furosemide 40 MG TABLET PO (09:12)
[2021-09-22] MEDS: Spironolactone 25 MG TABLET 100 MG PO (09:12)
[2021-09-22] MEDS: Lactulose 20 GM/30 ML SOLUTION PO ×2 (09:13→19:32)
[2021-09-22] MEDS: Multivitamin TABLET 1 TAB PO (09:13)
--- NOTE | 2021-09-22 10:34 | P.PNIM_ITS ---
Subjective Subjective Date of Service: 09/22/21 Interval History: F/u on ascietes and P. effusion--feels better, no sob, no abd pain Review of Systems Gen: no fever Resp: no sob, no cough CV: no chest, no COBB, no leg edema GI: No n/v, no abd pain Neuro: No confusion Physical Exam Vital Signs: Vital Signs: Last Vital Signs Temp 98.1 F 09/22/21 08:24 Pulse 71 09/22/21 08:24 Resp 15 09/22/21 08:24 BP 115/52 L 09/22/21 08:24 Pulse Ox 96 09/22/21 08:24 BMI result Body Mass Index 26.0 Const: Other: General: AO X 3, no acute distress Resp: decrease sound on the left CVS: S1,S2,RRR GI: +BS, NT, + distention, non tnder Skin: No rash Neuro: motor grossly intact Psych: appropriate affect Objective Data Active Medications Acetaminophen (Acetaminophen 325 Mg Tablet) 650 mg PO Q6H PRN PRN Reason: Pain, Mild (Pain Scale 1-3) Al Hydroxide/Mg Hydroxide (Magnesium Hydrox/Alum Hydrox 30 Ml Oral.Susp) 30 ml PO Q4H PRN PRN Reason: Heartburn/Nausea Alprazolam (Alprazolam 0.25 Mg Tablet) 0.25 mg PO DAILY PRN PRN Reason: Anxiety Furosemide (Furosemide 40 Mg Tablet) 40 mg PO DAILY [facility]; Protocol Last Admin: 09/22/21 09:12 Dose: 40 mg Documented by: BANDAR Hydroxyzine HCl (Hydroxyzine Hcl 25 Mg Tablet) 25 mg PO TID PRN PRN Reason: Anxiety Lactulose (Lactulose 20 Gm/30 Ml Solution) 20 gm PO BID [facility] Last Admin: 09/22/21 09:13 Dose: 20 gm Documented by: BANDAR Multivitamins/Vitamin C (Multivitamin Tablet) 1 tab PO DAILY [facility] Last Admin: 09/22/21 09:13 Dose: 1 tab Documented by: BANDAR Ondansetron HCl (Ondansetron Hcl 4 Mg/2 Ml Vial) 4 mg IVPUSH Q8H PRN PRN Reason: Nausea and Vomiting Oxycodone HCl (Oxycodone Hcl Immed Release 5 Mg Tablet) 5 mg PO Q8H PRN PRN Reason: Pain, Severe (Pain Scale 7-10) Sodium Chloride (0.9 % Sodium Chloride Flush 3 Ml Syringe) 3 ml IVFLUSH QSHIFT [facility] Last Admin: 09/22/21 08:00 Dose: 3 ml Documented by: BANDAR Spironolactone (Spironolactone 25 Mg Tablet) 100 mg PO DAILY [facility]; Protocol Last Admin: 09/22/21 09:12 Dose: 100 mg Documented by: BANDAR Labs CBC & Chem 7: 09/22/21 07:32 09/22/21 07:32 Labs: Laboratory Results - last 24 hr 09/21/21 09/21/21 09/21/21 17:33 17:33 17:34 MCV 103.9 H MCH 35.4 H MCHC 34.1 RDW 14.6 Plt Count 96 L MPV 10.2 Immature Gran % (Auto) 0.3 Neut % (Auto) 69.1 Lymph % (Auto) 15.2 L [place] % (Auto) 11.8 H Eos % (Auto) 2.8 Baso % (Auto) 0.8 Lymph # (Auto) 1.0 L [place] # (Auto) 0.8 Eos # (Auto) 0.2 Baso # (Auto) 0.1 Abs Immat Gran (auto) 0.02 Absolute Neuts (auto) 4.5 Absolute Nucleated RBC 0.000 Nucleated RBC % (auto) 0.0 PT 17.1 H INR 1.5 H D-Dimer High Sensitivty 1179 Anion Gap Estim Creat Clear Calc Estimated GFR Random Glucose Calcium Magnesium Total Bilirubin AST ALT Alkaline Phosphatase B-Natriuretic Peptide 255 H Total Protein Albumin Lipase Urine Color Urine Appearance Urine pH Ur Specific [place] Urine Protein Urine Glucose (UA) Urine Ketones Urine Blood Urine Nitrite Ur Leukocyte Esterase Urine RBC Urine WBC Ur Squamous Epith Cells Urine Bacteria Hyaline Casts Urine Mucus Peritoneal WBC Peritoneal RBC Periton Neutrophils Periton Lymphocytes Peritoneal Monocytes Peritoneal Other Cells COVID-19 ([facility]) COVID-19 Clin Com 09/21/21 09/21/21 09/21/21 17:34 17:34 19:28 MCV MCH MCHC RDW Plt Count MPV Immature Gran % (Auto) Neut % (Auto) Lymph % (Auto) [place] % (Auto) Eos % (Auto) Baso % (Auto) Lymph # (Auto) [place] # (Auto) Eos # (Auto) Baso # (Auto) Abs Immat Gran (auto) Absolute Neuts (auto) Absolute Nucleated RBC Nucleated RBC % (auto) PT INR D-Dimer High Sensitivty Anion Gap 13 Estim Creat Clear Calc 36.4 Estimated GFR 46 Random Glucose 103 Calcium 8.9 D Magnesium 1.8 Total Bilirubin 5.7 H AST 78 H ALT 32 H Alkaline Phosphatase 121 H B-Natriuretic Peptide Total Protein 6.7 Albumin 2.8 L Lipase 76 Urine Color YELLOW Urine Appearance CLEAR Urine pH 6.0 Ur Specific [place] 1.010 Urine Protein NEG Urine Glucose (UA) NEG Urine Ketones NEG Urine Blood NEG Urine Nitrite NEG Ur Leukocyte Esterase NEG Urine RBC 0-2 Urine WBC 0-2 Ur Squamous Epith Cells 2+ Urine Bacteria TRACE Hyaline Casts 1-4 Urine Mucus TRACE Peritoneal WBC Peritoneal RBC Periton Neutrophils Periton Lymphocytes Peritoneal Monocytes Peritoneal Other Cells COVID-19 ([facility]) Negative COVID-19 Clin Com See Note 09/22/21 09/22/21 09/22/21 01:04 07:32 07:32 MCV 101.7 H MCH 35.8 H MCHC 35.2 H RDW 14.3 Plt Count 70 L D MPV 9.9 Immature Gran % (Auto) 0.3 Neut % (Auto) 51.1 Lymph % (Auto) 24.0 [place] % (Auto) 17.7 H Eos % (Auto) 5.8 H Baso % (Auto) 1.1 Lymph # (Auto) 0.9 L [place] # (Auto) 0.6 Eos # (Auto) 0.2 Baso # (Auto) 0.0 Abs Immat Gran (auto) 0.01 Absolute Neuts (auto) 1.9 L Absolute Nucleated RBC 0.000 Nucleated RBC % (auto) 0.0 PT INR D-Dimer High Sensitivty Anion Gap 11 L Estim Creat Clear Calc 47.9 Estimated GFR > 60 Random Glucose 96 Calcium 8.8 Magnesium Total Bilirubin AST ALT Alkaline Phosphatase B-Natriuretic Peptide Total Protein Albumin Lipase Urine Color Urine Appearance Urine pH Ur Specific [place] Urine Protein Urine Glucose (UA) Urine Ketones Urine Blood Urine Nitrite Ur Leukocyte Esterase Urine RBC Urine WBC Ur Squamous Epith Cells Urine Bacteria Hyaline Casts Urine Mucus Peritoneal WBC 0.243 Peritoneal RBC < 0.002 Periton Neutrophils 12 Periton Lymphocytes 4 Peritoneal Monocytes 11 Peritoneal Other Cells 73 COVID-19 ([facility]) COVID-19 Clin Com Assessment and Plan (1) Pleural effusion: Status: Acute (2) Ascites: Status: Acute (3) SOB (shortness of breath): Status: Acute Plan 81-year-old female with past medical history of decompensated nonalcoholic liver failure with recurrent ascites? treated with intermittent paracentesis presents to the hospital with complaints of abdominal distension as well as shortness of breath found to have large pleural? effusion #? ?Acute worsening dyspnea- secondary to pleural effusion and ascietes--this is recurrent -She needs throcentesis requested through IR # ? decompensated liver cirrhosis, with ascites -? abdominal CT shows cirrhosis with portal hypertension, splenomegaly, varices and a large portal to right renal vein? shunt -? status post? para centesis in the ED -? will follow cultures - medical management with aldactone and lasix #? CHF - ? Has elevated BNP, pleural effusion on chest x-ray, -? will obtain echocardiogram, consult Cardiology ?DVT prophylaxis:? SCDs Quality Stroke Does the patient have a stroke diagnosis?: No VTE Prior VTE?: No VTE Risk Level:: Medical - moderate - high VTE Device Contraindication: N/A - Device Ordered VTE Drug Contraindication: Treatment Not Indicated
--- NOTE | 2021-09-22 11:58 | MHC.CM.PN ---
Addendum entered by Mary Doan 09/22/21 12:13: OF NOTE: PT WAS RECENTLY DISCHARGED HOME WITH [facility] REPORTS PT/FAMILY DECLINED SERVICES WHEN THEY ATTEMPTED TO INITIATE SOC. 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 SHE REPORTS SHE NEEDS HELP WITH HOUSEWORK AND SELF CARE. SHE DOES NOT HAVE A WALKER OR A CANE AT THIS TIME BUT DOES USE A FELICITA STICK , THAT HER SON MADE FOR HER, PRN. SHE ALSO HAS MED ALERT. PT HAS A MOLST ON FILE BUT ALSO REPORTS SHE HAS A HCP NAMING HER SON AND FRIEND, MANUEL, HER AGENTS. PT ASKS THAT CM CALL MANUEL AND ALSO BELIEVES SHE MAY HAVE A COPY OF THE HCP. IMM DELIVERED, PT DECLINES A COPY, COPY SENT TO [facility] TO TRANSPORT
--- NOTE | 2021-09-22 12:39 | PM.CNCAR ---
History of Present Illness History of Present Illness Date of Service: 09/22/21 Chief complaint: Pleural effusion, ascites Narrative: 81-year-old female who is presenting for ascites and pleural effusion. She denies any significant shortness of breath. She has significant ascites. She has no history of cirrhosis of liver. We have been asked to comment about the pleural effusions and whether she has congestive heart failure. On discussing with her she has no orthopnea or PND. Her main complaint was abdominal distension and came in for that. She has large volume paracenteses at this point. She has pleural effusion on imaging. She has aortic stenosis murmur on examination. She has no significant JVD at this point. [facility] Past Medical History Medical History Aortic stenosis Ascites Ascites Cirrhosis Irritable bowel Pleural effusion Family History Family History Sister CAD (coronary artery disease) Surgical History Surgical History History of colonoscopy Social History Social History Household Members: None Housing: Condominium Do you presently have visiting nurse or other home services: Yes Alcohol intake: never Patient Tobacco Use Status: Never used Tobacco Advance Directives: Yes Advance Directives Information Provided: No Advance Directives on File: No service: Yes Current occupational status: retired Meds Allergies Allergy/AdvReac Type Severity Reaction Status Date / Time latex Allergy Intermediate Unknown Verified 06/16/21 08:01 Active Medications: Current Medications Acetaminophen (Acetaminophen 325 Mg Tablet) 650 mg PO Q6H PRN PRN Reason: Pain, Mild (Pain Scale 1-3) Al Hydroxide/Mg Hydroxide (Magnesium Hydrox/Alum Hydrox 30 Ml Oral.Susp) 30 ml PO Q4H PRN PRN Reason: Heartburn/Nausea Alprazolam (Alprazolam 0.25 Mg Tablet) 0.25 mg PO DAILY PRN PRN Reason: Anxiety Furosemide (Furosemide 40 Mg Tablet) 40 mg PO DAILY [facility]; Protocol Last Admin: 09/22/21 09:12 Dose: 40 mg Documented by: Hydroxyzine HCl (Hydroxyzine Hcl 25 Mg Tablet) 25 mg PO TID PRN PRN Reason: Anxiety Lactulose (Lactulose 20 Gm/30 Ml Solution) 20 gm PO BID [facility] Last Admin: 09/22/21 09:13 Dose: 20 gm Documented by: Multivitamins/Vitamin C (Multivitamin Tablet) 1 tab PO DAILY [facility] Last Admin: 09/22/21 09:13 Dose: 1 tab Documented by: Ondansetron HCl (Ondansetron Hcl 4 Mg/2 Ml Vial) 4 mg IVPUSH Q8H PRN PRN Reason: Nausea and Vomiting Oxycodone HCl (Oxycodone Hcl Immed Release 5 Mg Tablet) 5 mg PO Q8H PRN PRN Reason: Pain, Severe (Pain Scale 7-10) Sodium Chloride (0.9 % Sodium Chloride Flush 3 Ml Syringe) 3 ml IVFLUSH QSHIFT [facility] Last Admin: 09/22/21 08:00 Dose: 3 ml Documented by: Spironolactone (Spironolactone 25 Mg Tablet) 100 mg PO DAILY [facility]; Protocol Last Admin: 09/22/21 09:12 Dose: 100 mg Documented by: Home Medications Medication Instructions Recorded Confirmed Last Taken Type furosemide 40 mg tablet 40 mg PO DAILY 06/08/21 09/22/21 08/18/21 History lactulose 10 gram/15 mL oral 30 ml PO BID 06/13/21 09/22/21 08/18/21 History solution alprazolam 0.25 mg tablet 0.25 mg PO DAILY PRN 06/14/21 09/22/21 08/18/21 History multivitamin 1 tab PO DAILY 06/14/21 09/22/21 08/18/21 History acetaminophen 500 mg tablet 500 mg PO Q6H PRN 08/18/21 09/22/21 08/18/21 History hydroxyzine HCl 25 mg tablet 1 tab PO TID PRN 08/18/21 09/22/21 08/18/21 History spironolactone 100 mg tablet 1 tab PO DAILY 08/18/21 09/22/21 08/18/21 History vitamin B complex 1 tab PO DAILY 08/18/21 09/22/21 08/18/21 History tretinoin 0.05 % topical cream 1 applic TOPICAL BEDTIME 09/22/21 09/22/21 Unknown History Physical Exam Vital Signs: Vital Signs: Last Vital Signs Temp 97.8 F 09/22/21 11:16 Pulse 70 09/22/21 11:16 Resp 16 09/22/21 11:16 BP 120/48 L 09/22/21 11:16 Pulse Ox 95 09/22/21 11:16 BMI result Body Mass Index 26.0 GENERAL APPEARANCE: in no acute distress, pleasant. NECK: no carotid bruit, no jugular venous distention. SKIN: no suspicious lesions, warm and dry. HEART: systolic murmur, regular rate and rhythm. LUNGS: clear to auscultation bilaterally. diminished at bases. ABDOMEN: soft, nontender. EXTREMITIES: no edema. PERIPHERAL PULSES: equal. NEUROLOGIC: No gross deficits, AAO X 3 Objective Labs and Meds Result diagrams: 09/22/21 07:32 09/22/21 07:32 Lab results: Laboratory Results - last 24 hr 09/21/21 09/21/21 09/21/21 17:33 17:33 17:34 WBC 6.5 RBC 3.33 L Hgb 11.8 L Hct 34.6 L MCV 103.9 H MCH 35.4 H MCHC 34.1 RDW 14.6 Plt Count 96 L MPV 10.2 Immature Gran % (Auto) 0.3 Neut % (Auto) 69.1 Lymph % (Auto) 15.2 L [place] % (Auto) 11.8 H Eos % (Auto) 2.8 Baso % (Auto) 0.8 Lymph # (Auto) 1.0 L [place] # (Auto) 0.8 Eos # (Auto) 0.2 Baso # (Auto) 0.1 Abs Immat Gran (auto) 0.02 Absolute Neuts (auto) 4.5 Absolute Nucleated RBC 0.000 Nucleated RBC % (auto) 0.0 PT 17.1 H INR 1.5 H D-Dimer High Sensitivty 1179 Sodium Potassium Chloride Carbon Dioxide Anion Gap BUN Creatinine Estim Creat Clear Calc Estimated GFR Random Glucose Calcium Magnesium Total Bilirubin AST ALT Alkaline Phosphatase Troponin I High Sens 14.0 D B-Natriuretic Peptide 255 H Total Protein Albumin Lipase Urine Color Urine Appearance Urine pH Ur Specific [place] Urine Protein Urine Glucose (UA) Urine Ketones Urine Blood Urine Nitrite Ur Leukocyte Esterase Urine RBC Urine WBC Ur Squamous Epith Cells Urine Bacteria Hyaline Casts Urine Mucus Peritoneal WBC Peritoneal RBC Periton Neutrophils Periton Lymphocytes Peritoneal Monocytes Peritoneal Other Cells COVID-19 ([facility]) COVID-19 Clin Com 09/21/21 09/21/21 09/21/21 17:34 17:34 19:28 WBC RBC Hgb Hct MCV MCH MCHC RDW Plt Count MPV Immature Gran % (Auto) Neut % (Auto) Lymph % (Auto) [place] % (Auto) Eos % (Auto) Baso % (Auto) Lymph # (Auto) [place] # (Auto) Eos # (Auto) Baso # (Auto) Abs Immat Gran (auto) Absolute Neuts (auto) Absolute Nucleated RBC Nucleated RBC % (auto) PT INR D-Dimer High Sensitivty Sodium 136 Potassium 4.5 Chloride 102 Carbon Dioxide 26 Anion Gap 13 BUN 17 H Creatinine 1.13 Estim Creat Clear Calc 36.4 Estimated GFR 46 Random Glucose 103 Calcium 8.9 D Magnesium 1.8 Total Bilirubin 5.7 H AST 78 H ALT 32 H Alkaline Phosphatase 121 H Troponin I High Sens B-Natriuretic Peptide Total Protein 6.7 Albumin 2.8 L Lipase 76 Urine Color YELLOW Urine Appearance CLEAR Urine pH 6.0 Ur Specific [place] 1.010 Urine Protein NEG Urine Glucose (UA) NEG Urine Ketones NEG Urine Blood NEG Urine Nitrite NEG Ur Leukocyte Esterase NEG Urine RBC 0-2 Urine WBC 0-2 Ur Squamous Epith Cells 2+ Urine Bacteria TRACE Hyaline Casts 1-4 Urine Mucus TRACE Peritoneal WBC Peritoneal RBC Periton Neutrophils Periton Lymphocytes Peritoneal Monocytes Peritoneal Other Cells COVID-19 ([facility]) Negative COVID-19 Clin Com See Note 09/22/21 09/22/21 09/22/21 01:04 07:32 07:32 WBC 3.6 L RBC 2.96 L Hgb 10.6 L Hct 30.1 L MCV 101.7 H MCH 35.8 H MCHC 35.2 H RDW 14.3 Plt Count 70 L D MPV 9.9 Immature Gran % (Auto) 0.3 Neut % (Auto) 51.1 Lymph % (Auto) 24.0 [place] % (Auto) 17.7 H Eos % (Auto) 5.8 H Baso % (Auto) 1.1 Lymph # (Auto) 0.9 L [place] # (Auto) 0.6 Eos # (Auto) 0.2 Baso # (Auto) 0.0 Abs Immat Gran (auto) 0.01 Absolute Neuts (auto) 1.9 L Absolute Nucleated RBC 0.000 Nucleated RBC % (auto) 0.0 PT INR D-Dimer High Sensitivty Sodium 139 Potassium 3.5 D Chloride 102 Carbon Dioxide 30 H Anion Gap 11 L BUN 15 Creatinine 0.86 Estim Creat Clear Calc 47.9 Estimated GFR > 60 Random Glucose 96 Calcium 8.8 Magnesium Total Bilirubin AST ALT Alkaline Phosphatase Troponin I High Sens B-Natriuretic Peptide Total Protein Albumin Lipase Urine Color Urine Appearance Urine pH Ur Specific [place] Urine Protein Urine Glucose (UA) Urine Ketones Urine Blood Urine Nitrite Ur Leukocyte Esterase Urine RBC Urine WBC Ur Squamous Epith Cells Urine Bacteria Hyaline Casts Urine Mucus Peritoneal WBC 0.243 Peritoneal RBC < 0.002 Periton Neutrophils 12 Periton Lymphocytes 4 Peritoneal Monocytes 11 Peritoneal Other Cells 73 COVID-19 ([facility]) COVID-19 Clin Com Imaging Radiologist's impression: Impressions Abdomen/Pelvis CT 09/21/21 19:13 IMPRESSION: Cirrhosis with portal hypertension, splenomegaly, varices and a 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 Fleischner guidelines were followed. Chest CTA 09/21/21 19:13 IMPRESSION: 1. No evidence of pulmonary emboli. 2. Large left pleural effusion with small right effusion with associated left lower lobe collapse. The left-sided effusion is improved. The right-sided effusion is new. 3. For abdominal findings see CT abdomen and pelvis same day VTE: negative Assessment and Plan (1) Pleural effusion: Status: Acute Plan 81-year-old female with cirrhosis of liver and moderate aortic valve stenosis due presenting for ascites. She had paracentesis at this point where she is also noticed to have pleural effusions. She is denying any orthopnea or PND at this stage. She does have pleural effusions. Agree with gentle diuresis. If she has any shortness of breath then therapeutic thoracentesis may help. He will follow along with you. Thank you for allowing me to participate in the care of your patient. Please feel free to contact me if you have any questions. Procedures Date of Service Date of Service: 09/22/21
[2021-09-22] MEDS: LORazepam 2 MG/ML VIAL 0.5 MG IVPUSH (13:16)
[2021-09-22] MEDS: Lidocaine HCl 1 % MPF 5 ML VIAL SUBCUT (13:58)
--- NOTE | 2021-09-22 14:11 | PC.NURSE ---
thoracentesis complete at bedside by Dr. Rogers. Removal of 1L of fluid from the lungs. pt tolerated well. currently with a friend at bedside. requesting food.
--- NOTE | 2021-09-22 16:09 | PC.NURSE ---
awaiting order change for pt diet so pt can eat. tiger connect sent to dr. Villegas
--- NOTE | 2021-09-22 16:45 | P.CONGS_ITS ---
History of Present Illness Consult details Consult date: 09/22/21 Reason for consult: other (Abdominal pain shortness of breath and lower extremity edema) Narrative: 81-year-old woman with non alcoholic liver cirrhosis, ascites, recurrent pleural effusion on the left, aortic stenosis, who gets periodic paracenteses presented to the emergency department with abdominal pain, shortness of breath, and lower extremity edema. She was admitted August and had felt better after going home at that time but over the past few weeks she has had worsening symptoms as abo ve. She did have a thoracentesis for 1.8 L on 08/20/2021 from the left chest. CT scan done in the emergency department shows a large left effusion and ascites. Paracentesis was done in the emergency department and a thoracentesis was done this morning for the left effusion. Follow-up chest x-ray shows improved aeration of the left lung and a small to moderate pleural effusion remaining. Review of Systems Review of Systems: See HPI Yes all other systems are reviewed and are negative Constitutional: Constitutional: Reports as per HPI [facility] Past Medical History Medical History Aortic stenosis Ascites Ascites Cirrhosis Irritable bowel Pleural effusion Family History Family History Sister CAD (coronary artery disease) Surgical History Surgical History History of colonoscopy Social History Social History Household Members: None Housing: Condominium Do you presently have visiting nurse or other home services: Yes Alcohol intake: never Patient Tobacco Use Status: Never used Tobacco Advance Directives: Yes Advance Directives Information Provided: No Advance Directives on File: No service: Yes Current occupational status: retired Meds Allergies Allergy/AdvReac Type Severity Reaction Status Date / Time latex Allergy Intermediate Unknown Verified 06/16/21 08:01 Active Medications: Current Medications Acetaminophen (Acetaminophen 325 Mg Tablet) 650 mg PO Q6H PRN PRN Reason: Pain, Mild (Pain Scale 1-3) Al Hydroxide/Mg Hydroxide (Magnesium Hydrox/Alum Hydrox 30 Ml Oral.Susp) 30 ml PO Q4H PRN PRN Reason: Heartburn/Nausea Alprazolam (Alprazolam 0.25 Mg Tablet) 0.25 mg PO DAILY PRN PRN Reason: Anxiety Furosemide (Furosemide 40 Mg Tablet) 40 mg PO DAILY [facility]; Protocol Last Admin: 09/22/21 09:12 Dose: 40 mg Documented by: Hydroxyzine HCl (Hydroxyzine Hcl 25 Mg Tablet) 25 mg PO TID PRN PRN Reason: Anxiety Lactulose (Lactulose 20 Gm/30 Ml Solution) 20 gm PO BID [facility] Last Admin: 09/22/21 09:13 Dose: 20 gm Documented by: Multivitamins/Vitamin C (Multivitamin Tablet) 1 tab PO DAILY [facility] Last Admin: 09/22/21 09:13 Dose: 1 tab Documented by: Ondansetron HCl (Ondansetron Hcl 4 Mg/2 Ml Vial) 4 mg IVPUSH Q8H PRN PRN Reason: Nausea and Vomiting Oxycodone HCl (Oxycodone Hcl Immed Release 5 Mg Tablet) 5 mg PO Q8H PRN PRN Reason: Pain, Severe (Pain Scale 7-10) Sodium Chloride (0.9 % Sodium Chloride Flush 3 Ml Syringe) [facility] Last Admin: 09/22/21 08:00 Dose: 3 ml Documented by: Spironolactone (Spironolactone 25 Mg Tablet) 100 mg PO DAILY [facility]; Protocol Last Admin: 09/22/21 09:12 Dose: 100 mg Documented by: Home Medications Medication Instructions Recorded Confirmed Last Taken Type furosemide 40 mg tablet 40 mg PO DAILY 06/08/21 09/22/21 08/18/21 History lactulose 10 gram/15 mL oral 30 ml PO BID 06/13/21 09/22/21 08/18/21 History solution alprazolam 0.25 mg tablet 0.25 mg PO DAILY PRN 06/14/21 09/22/21 08/18/21 History multivitamin 1 tab PO DAILY 06/14/21 09/22/21 08/18/21 History acetaminophen 500 mg tablet 500 mg PO Q6H PRN 08/18/21 09/22/21 08/18/21 History hydroxyzine HCl 25 mg tablet 1 tab PO TID PRN 08/18/21 09/22/21 08/18/21 History spironolactone 100 mg tablet 1 tab PO DAILY 08/18/21 09/22/21 08/18/21 History vitamin B complex 1 tab PO DAILY 08/18/21 09/22/21 08/18/21 History tretinoin 0.05 % topical cream 1 applic TOPICAL BEDTIME 09/22/21 09/22/21 Unknown History Physical Exam Vital Signs: Vital Signs: Last Vital Signs Temp 98.0 F 09/22/21 15:21 Pulse 58 09/22/21 15:21 Resp 14 09/22/21 15:21 BP 109/40 L 09/22/21 15:21 Pulse Ox 97 09/22/21 15:21 BMI result Body Mass Index 26.0 General: No acute distress HEENT: Moist mucous membranes, normocephalic, pupils equal round and reactive to light. Neck: No thyromegaly, supple, no JVD Lymph: No cervical, supraclavicular, or other lymphadenopathy Chest: No chest wall abnormalities or deformities Heart: Regular rate and rhythm Lungs: Clear to auscultation bilaterally Abdomen: Soft, nontender, normal bowel sounds Extremities: No edema, cyanosis, or clubbing. Full range of motion Neuro: Grossly intact, alert and oriented x3, and nonfocal Skin: Warm and dry no rashes Affect: Normal Results Labs Result diagrams: 09/22/21 07:32 09/22/21 07:32 Labs: Abnormal lab results 09/21/21 09/21/21 09/21/21 Range/Units 17:33 17:33 17:34 WBC (4.8-10.8) X10*3/uL RBC 3.33 L (4.20-5.50) X10*6/uL Hgb 11.8 L (12.0-16.0) g/dl Hct 34.6 L (37.0-47.0) % MCV 103.9 H (80.0-98.0) fL MCH 35.4 H (27.0-33.0) pg MCHC (31.0-35.0) g/dl Plt Count 96 L (160-400) X10*3/uL Lymph % (Auto) 15.2 L (20-40) % [place] % (Auto) 11.8 H (2-11) % Eos % (Auto) (0-4) % Lymph # (Auto) 1.0 L (1.2-4.9) X10*3/uL Absolute Neuts (auto) (2.0-8.3) x10*3/uL PT 17.1 H (9.9-13.0) SEC INR 1.5 H (0.9-1.1) Carbon Dioxide (22-29) mmol/L Anion Gap (12-20) BUN (9-16) mg/dL Total Bilirubin (0.0-1.0) mg/dL AST (5-31) U/L ALT (0-31) U/L Alkaline Phosphatase (39-117) U/L B-Natriuretic Peptide 255 H (<100) pg/mL Albumin (3.5-5.0) g/dL 09/21/21 09/22/21 09/22/21 Range/Units 17:34 07:32 07:32 WBC 3.6 L (4.8-10.8) X10*3/uL RBC 2.96 L (4.20-5.50) X10*6/uL Hgb 10.6 L (12.0-16.0) g/dl Hct 30.1 L (37.0-47.0) % MCV 101.7 H (80.0-98.0) fL MCH 35.8 H (27.0-33.0) pg MCHC 35.2 H (31.0-35.0) g/dl Plt Count 70 L D (160-400) X10*3/uL Lymph % (Auto) (20-40) % [place] % (Auto) 17.7 H (2-11) % Eos % (Auto) 5.8 H (0-4) % Lymph # (Auto) 0.9 L (1.2-4.9) X10*3/uL Absolute Neuts (auto) 1.9 L (2.0-8.3) x10*3/uL PT (9.9-13.0) SEC INR (0.9-1.1) Carbon Dioxide 30 H (22-29) mmol/L Anion Gap 11 L (12-20) BUN 17 H (9-16) mg/dL Total Bilirubin 5.7 H (0.0-1.0) mg/dL AST 78 H (5-31) U/L ALT 32 H (0-31) U/L Alkaline Phosphatase 121 H (39-117) U/L B-Natriuretic Peptide (<100) pg/mL Albumin 2.8 L (3.5-5.0) g/dL Short CBC 09/21/21 09/22/21 Range/Units 17:34 07:32 WBC 6.5 3.6 L (4.8-10.8) X10*3/uL Hgb 11.8 L 10.6 L (12.0-16.0) g/dl Hct 34.6 L 30.1 L (37.0-47.0) % Plt Count 96 L 70 L D (160-400) X10*3/uL BMP 09/21/21 09/22/21 17:34 07:32 Sodium 136 139 Potassium 4.5 3.5 D Chloride 102 102 Carbon Dioxide 26 30 H BUN 17 H 15 Creatinine 1.13 0.86 Calcium 8.9 D 8.8 Liver Function 09/21/21 Range/Units 17:34 Total Bilirubin 5.7 H (0.0-1.0) mg/dL AST 78 H (5-31) U/L ALT 32 H (0-31) U/L Alkaline Phosphatase 121 H (39-117) U/L Albumin 2.8 L (3.5-5.0) g/dL Urine 09/21/21 Range/Units 19:28 Urine Color YELLOW Urine Appearance CLEAR Urine pH 6.0 (5.0-8.0) Ur Specific [place] 1.010 (1.005-1.025) Urine Protein NEG (NEG-TRACE) MG/DL Urine Glucose (UA) NEG (NEG) MG/DL All other labs normal. Imaging Chest x-ray: image reviewed CT scan - chest: image reviewed Assessment and Plan (1) Pleural effusion: Status: Acute Plan 81-year-old woman with complex past medical history including non alcoholic liver cirrhosis with consequent ascites and pleural effusions and aortic stenosis who presented with abdominal pain, shortness of breath, and lower extremity edema and again ascites and a large left pleural effusion. She does feel better after the paracentesis and the thoracentesis. I do think that the pleural effusion is likely secondary to her liver failure and I would not recommend placing a PleurX in their even though this is on the left side. Medical management for liver failure to minimize the pleural effusion as much as possible. Procedures Date of Service Date of Service: 09/22/21
--- NOTE | 2021-09-22 18:42 | PC.NURSE ---
OFFERED PT SEVERAL OPTIONS TO ADDRESS HER COMPLAINTS ABOUT HER ROOM, NOISE AND TEMPERATURES . SHE IS EATING DINNER AND OTHERWISE IS STABLE MEDICALLY
[2021-09-22] MEDS: hydrOXYzine HCL 25 MG TABLET PO (19:32)
[2021-09-22] MEDS: ALPRAZolam 0.25 MG TABLET PO (19:32)
--- NOTE | 2021-09-22 19:34 | PC.NURSE ---
Report taken from Daryn, adonay RN resuming care. Pt found sitting upright in bed, requesting medication for anxiety and sleep. Pt medicated per request, requesting Lactulose early as pt wants to sleep without being interrupted. Pt denies pain @ this time. VSS. Pt ambulating in room in NAD. Continue to monitor.
--- NOTE | 2021-09-22 20:03 | PC.NURSE ---
This RN calling [facility], [facility] unable to take report at this time. [facility] to call back.
--- NOTE | 2021-09-22 22:12 | PC.NURSE ---
Report given to RN, plan for transport to floor.
[2021-09-23 03:56] VITALS: BP 102/52; PULSE 70; RESP 18; TEMP 36; O2SAT 92
[2021-09-23 06:59] LABS: Albumin Peritoneal Fluid 0.5; Glucose Peritoneal Fluid 117; LDH Peritoneal Fluid 69; Total Protein Peritoneal Fluid 1.1
[2021-09-23 07:00] LABS: Amylase Peritoneal Fluid 23; Creatinine Peritoneal Fluid 0.9
[2021-09-23 08:00] VITALS: BP 99/54; PULSE 84; RESP 18; TEMP 36.3; O2SAT 94
--- NOTE | 2021-09-23 08:59 | P.DS_ITS ---
DS: Providers Provider Date of Service: 09/23/21 Date of admission: 09/21/21 22:57 Primary care physician: Hardik Claros MD Consults: 09/21/21 20:27 Consult to Thoracic Surgery Stat Consulting Provider: Puja Wilkes Reason for consultation: thoracentesis Has provider been notified: No 09/21/21 23:07 Consult to Cardiology Routine Consulting Provider: Shaw Walker Reason for consultation: chf? Has provider been notified: No DS: Diagnosis Discharge Diagnosis (1) Pleural effusion: Status: Acute DS: Summary Hospital Course Hospital Course: Chief Complaint: abdominal distention ? This is an 81-year-old female with past medical history of aortic stenosis, nonalcoholic liver cirrhosis? decompensated with ascites, receives periodic therapeutic paracentesis last received in August, history of IBS, presents to the hospital with complaints of abdominal distension as well as shortness of breath, and lower extremity edema.? She reports that? she was discharged from the hospital on the and did well for 2 weeks post discharge but then developed progressively worsening symptoms of shortness of breath, weakness, fatigue, wheezing, leg swelling that has improved for the past 2 days, sharp diffuse abdominal pain, as well as progressively worsening abdominal distension.? ? She reports that her abdominal distension is so severe that she has difficulty walking? And walks like a penguin.She denies any urinary symptoms.? Denies any chest pain at this time, no headache or change in vision, no dizziness. ? Patient was discharged from the hospital on August 21 after being treated for pleuritic chest pain secondary to large left pleural effusion, status post thoracocentesis by Dr. Dyson on 08/20/2021.? 1.8 L of risk color fluid was removed at that time.? She also had liver cirrhosis with ascites at that time and underwent therapeutic paracentesis in the ED. ? On arrival to the ED patient hemodynamically stable with no significant abnormal vitals ?labs are significant for WBC count 6.5, hemoglobin of 11.8, hematocrit? 34.6, PT of 17.1, INR of 1.5, BUN of 17, creatinine of 1.13, total bili of 5.7 which is chronically elevated, AST of 78, ALT of 32, alk-phos of 121, BNP of 255,? UA negative, ?chest CT angiogram shows no evidence of pulmonary emboli, large left pleural effusion with small right effusion with associated left lower lobe collapse, left-sided effusion is improved, the right-sided effusion is new ? Patient underwent therapeutic paracentesis in the ED and will be admitted for further management. ?thoracic was consulted by the ED, plan for thoracocentesis in the a... Hospital coruse: Essentially patient has knonw history of cirrhosis complicated by recurrent ascietes and hydrothorax and presented on this occasion with abdo reji distention and some shortness of breath and noted to have significant ascietesand left sided pelural effusion. Paracentesis was performed in the ED with removal of 4 liters and thoracentesis of 1 liter removal by IR then day.. She was seen by surgery and cardiology with recommendation for medical management. At this point she feesl well and will go home and follow up with PCP, I suggest possible frequent scheduled paracentesis and throaesis vs explorationof Pleurx catheter in the future. Time Spent with Patient Time attestation: Total time spent providing and/or coordinating discharge services: Discharge coordination time: Greater than 30 minutes Quality: Stroke Does the patient have a stroke diagnosis?: No Physical Exam Vital Signs: Vital Signs: Last Vital Signs Temp 97.4 F 09/23/21 08:00 Pulse 84 09/23/21 08:00 Resp 18 09/23/21 08:00 BP 99/54 L 09/23/21 08:00 Pulse Ox 94 09/23/21 08:00 BMI result Body Mass Index 25.1 DS: Data Data Completed and Pending Completed studies during hospitalization [Text1]: Procedures Drainage of Left Pleural Cavity, Percutaneous Approach (08/18/21) Drainage of Peritoneal Cavity, Percutaneous Approach (08/18/21) Labs on day of discharge: Laboratory Results - last 24 hr 09/22/21 01:04 Peritoneal Creatinine 0.9 Peritoneal Tot Protein 1.1 Peritoneal Albumin 0.5 Peritoneal LDH 69 Peritoneal Glucose 117 Peritoneal Amylase 23 Preliminary micro results at discharge 09/22/21 01:04 Routine Culture - Preliminary Paracentesis Fluid No growth to date. Anaerobic Culture - Preliminary No growth to date. Discharge Plan Discharge Anticipated Discharge Date/Time: 09/24/21 09:15 Patient Disposition: Home Health Service Discharge Diagnosis: Asscietes and Pleural effusion Referrals: Hardik Claros MD [Primary Care Provider] - 1 Week Discharge Medications: Continued vitamin B complex Tablet Extended Release 1 tab PO DAILY 0RF spironolactone 100 mg tablet 1 tab PO DAILY 0RF acetaminophen 500 mg Tablet 500 mg PO Q6H PRN (Reason: Pain (Scale Score 1-3)) 0RF oxycodone 5 mg tablet 5 mg PO Q8H PRN (Reason: pain) Qty: 9 0RF lactulose 10 gram/15 mL solution 30 ml PO BID 0RF multivitamin Tablet 1 tab PO DAILY 0RF alprazolam 0.25 mg Tablet 0.25 mg PO DAILY PRN (Reason: Anxiety) 0RF tretinoin 0.05 % cream 1 applic topical BEDTIME 0RF hydroxyzine HCl 25 mg tablet 1 tab PO TID PRN (Reason: Anxiety) Qty: 15 0RF furosemide 40 mg tablet 40 mg PO DAILY 0RF Discharge Orders: Discharge Order (Routine); Ordered 09/24/21 Ordered By: Kana Villegas Diet: advance to usual diet and low salt diet Activity on Discharge: As tolerated Stand Alone Forms: Patient Portal Discharge page Care Plan Goals: Prevent rehospitalzation and optimization of medical management of liver disease Health Concerns: Cirrhosis of liver leading to ascietes and pleural effusio Plan of Treatment: Continue present medication and follow up with PcP--Harlan, GI Gama Vogt and acquisition associate Stacie.. There need to he a discussion about mcc management of fluid including possibly Pleurx catheter vs periodic scheduled paracentesis and thoracentesis. Assessment: as above Discharge Date/Time: 09/24/21 11:38
--- NOTE | 2021-09-23 09:09 | HO.PM.IMPN ---
Subjective Subjective Date of Service: 09/24/21 Interval History: late entry note for 09/23 f/u on sob due pleural effusion and improved after thoracentesis Review of Systems no fever, no sob Physical Exam Vital Signs: Vital Signs: vitals from 09/23 reviewed Const: Other: General: AO X 3, no acute distress Resp: CTA bilateral CVS: S1,S2,RRR GI: +BS, NT, midl distention Skin: No rash Neuro: motor grossly intact Psych: appropriate affect Objective Data Active Medications Acetaminophen (Acetaminophen 325 Mg Tablet) 650 mg PO Q6H PRN PRN Reason: Pain, Mild (Pain Scale 1-3) Al Hydroxide/Mg Hydroxide (Magnesium Hydrox/Alum Hydrox 30 Ml Oral.Susp) 30 ml PO Q4H PRN PRN Reason: Heartburn/Nausea Last Admin: 09/23/21 20:25 Dose: 30 ml Documented by: ELI Alprazolam (Alprazolam 0.25 Mg Tablet) 0.25 mg PO DAILY PRN PRN Reason: Anxiety Last Admin: 09/23/21 20:25 Dose: 0.25 mg Documented by: ELI Furosemide (Furosemide 40 Mg Tablet) 40 mg PO DAILY [facility]; Protocol Last Admin: 09/23/21 09:17 Dose: 40 mg Documented by: ZENON Hydroxyzine HCl (Hydroxyzine Hcl 25 Mg Tablet) 25 mg PO TID PRN PRN Reason: Anxiety Last Admin: 09/23/21 20:25 Dose: 25 mg Documented by: ELI Lactulose (Lactulose 20 Gm/30 Ml Solution) 20 gm PO BID [facility] Last Admin: 09/23/21 20:13 Dose: 20 gm Documented by: ELI Multivitamins/Vitamin C (Multivitamin Tablet) 1 tab PO DAILY [facility] Last Admin: 09/23/21 09:17 Dose: 1 tab Documented by: ZENON Ondansetron HCl (Ondansetron Hcl 4 Mg/2 Ml Vial) 4 mg IVPUSH Q8H PRN PRN Reason: Nausea and Vomiting Oxycodone HCl (Oxycodone Hcl Immed Release 5 Mg Tablet) 5 mg PO Q8H PRN PRN Reason: Pain, Severe (Pain Scale 7-10) Sodium Chloride (0.9 % Sodium Chloride Flush 3 Ml Syringe) 3 ml IVFLUSH QSHIFT [facility] Last Admin: 09/23/21 20:28 Dose: 3 ml Documented by: ELI Spironolactone (Spironolactone 25 Mg Tablet) 100 mg PO DAILY [facility]; Protocol Last Admin: 09/23/21 09:16 Dose: 100 mg Documented by: ZENON Labs CBC & Chem 7: 09/22/21 07:32 09/22/21 07:32 Microbiology Microbiology Results: Microbiology 09/22/21 01:04 Gram Stain - Final Paracentesis Fluid Routine Culture - Final No growth after 2 days Anaerobic Culture - Preliminary No growth to date. Assessment and Plan (1) Ascites: Status: Acute (2) Pleural effusion: Status: Acute (3) SOB (shortness of breath): Status: Acute Plan ? 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 treated with intermittent paracentesis presents to the hospital with complaints of abdominal distension as well as shortness of breath found to have large pleural? effusion #Dyspnea due to pleural effusion--resolved after thoracentesis #? large pleural effusion--resolved after thoracenteis--this is recurrent and should get periodic tap vs permanent pleurx x #Advance liver cirrhosis, ascietes s/p paracentesis, medical management with Lasix aldactone and should have periodic scheduled paracentesis #? CHF?--likely from fluid overload from ascietes and pleural effusion, no further testing offered by cardiology ?DVT prophylaxis:? SCDs Late entry note for 09/23 Quality Stroke Does the patient have a stroke diagnosis?: No VTE Prior VTE?: No VTE Risk Level:: Medical - moderate - high VTE Device Contraindication: N/A - Device Ordered VTE Drug Contraindication: Treatment Not Indicated
[2021-09-23] MEDS: 0.9 % Sodium Chloride Flush 3 ML SYRINGE IVFLUSH ×2 (09:16→20:28)
[2021-09-23] MEDS: Spironolactone 25 MG TABLET 100 MG PO (09:16)
[2021-09-23] MEDS: Lactulose 20 GM/30 ML SOLUTION PO ×2 (09:17→20:13)
[2021-09-23] MEDS: Multivitamin TABLET 1 TAB PO (09:17)
[2021-09-23] MEDS: Furosemide 40 MG TABLET PO (09:17)
--- NOTE | 2021-09-23 11:37 | W.MHC.F2F ---
Service Date Service Date: 09/23/21 Encounter Date of encounter: 09/23/21 Reasons for Services Signs and symptoms assessed: Shortness of breath Reason for alf: CV/CP assess and/or care and teach disease management Homebound: Leaving the home is medically contraindicated at this time without the asist of a device and/or another person due th the listed conditions above and below. Reason homebound: shortness of breath with minimal effort and shortness of breath at rest Homebound supporting statement: Homebound due to shortness of breath from recurrent pleural effusion and therefore needs the asstance of another person Certification: Based on the above findings, I certify that this patient is confined to the home and needs intermittent alf care, physical therapy and/or speech therapy, or continues to need occupational therapy. The patient is under my care, and I have initiated the establishment of the plan of care. The patient will be followed by a physician who will periodically review the plan of care.
--- NOTE | 2021-09-23 11:45 | P.PNCA_ITS ---
Subjective Subjective Date of Service: 09/23/21 Interval history: Feeling good. Still has abdominal distention due to ascites. Complaining of back pain at the thoracentesis site. Physical Exam Vital Signs: Last Vital Signs Temp 97.4 F 09/23/21 08:00 Pulse 84 09/23/21 08:00 Resp 18 09/23/21 08:00 BP 99/54 L 09/23/21 08:00 Pulse Ox 94 09/23/21 08:00 BMI result Body Mass Index 25.1 GENERAL APPEARANCE: in no acute distress, pleasant. Cachectic. NECK: no carotid bruit, no jugular venous distention. SKIN: no suspicious lesions, warm and dry. HEART: no murmurs, regular rate and rhythm. LUNGS: clear to auscultation bilaterally. Diminished at bases. ABDOMEN: soft, nontender. Distended. EXTREMITIES: no edema. PERIPHERAL PULSES: equal. NEUROLOGIC: No gross deficits, AAO X 3 Objective Labs and Meds Result diagrams: 09/22/21 07:32 09/22/21 07:32 Lab results: Laboratory Results - last 24 hr 09/22/21 01:04 Peritoneal Creatinine 0.9 Peritoneal Tot Protein 1.1 Peritoneal Albumin 0.5 Peritoneal LDH 69 Peritoneal Glucose 117 Peritoneal Amylase 23 Imaging Radiologist's impression: Impressions Thoracentesis Ultrasound 09/22/21 13:50 IMPRESSION: 1. Successful ultrasound-guided left thoracentesis performed with approximately 1 L of red clear fluid drained. 2. No pneumothorax seen status post left thoracentesis. There is a left lower lobe collapse. Chest X-Ray 09/22/21 13:55 IMPRESSION: 1. Successful ultrasound-guided left thoracentesis performed with approximately 1 L of red clear fluid drained. 2. No pneumothorax seen status post left thoracentesis. There is a left lower lobe collapse. Progress Note: A&P Assessment and plan (1) Pleural effusion: Status: Acute Plan 81-year-old female with pleural effusion on the left side which was drained yesterday. She has background of cirrhosis of liver and recurrent ascites. Pleuroperitoneal communication can be 1 explanation for this. Patient's with ascites can have pleural effusion at the same time. Usually these are right- sided but can be bilateral or left-sided. In any case clinically she is not act ing like heart failure. She has no orthopnea or PND. Echocardiography has not shown any significant issues and she has moderate aortic valve stenosis as before. I think the problem his underlying cirrhosis of liver and effusion is a consequence of that. She can continue her home diuretics. We are signing off. Fall Risk Details Current Medications: Current Medications Acetaminophen (Acetaminophen 325 Mg Tablet) 650 mg PO Q6H PRN PRN Reason: Pain, Mild (Pain Scale 1-3) Al Hydroxide/Mg Hydroxide (Magnesium Hydrox/Alum Hydrox 30 Ml Oral.Susp) 30 ml PO Q4H PRN PRN Reason: Heartburn/Nausea Alprazolam (Alprazolam 0.25 Mg Tablet) 0.25 mg PO DAILY PRN PRN Reason: Anxiety Last Admin: 09/22/21 19:32 Dose: 0.25 mg Documented by: Furosemide (Furosemide 40 Mg Tablet) 40 mg PO DAILY [facility]; Protocol Last Admin: 09/23/21 09:17 Dose: 40 mg Documented by: Hydroxyzine HCl (Hydroxyzine Hcl 25 Mg Tablet) 25 mg PO TID PRN PRN Reason: Anxiety Last Admin: 09/22/21 19:32 Dose: 25 mg Documented by: Lactulose (Lactulose 20 Gm/30 Ml Solution) 20 gm PO BID [facility] Last Admin: 09/23/21 09:17 Dose: 20 gm Documented by: Multivitamins/Vitamin C (Multivitamin Tablet) 1 tab PO DAILY [facility] Last Admin: 09/23/21 09:17 Dose: 1 tab Documented by: Ondansetron HCl (Ondansetron Hcl 4 Mg/2 Ml Vial) 4 mg IVPUSH Q8H PRN PRN Reason: Nausea and Vomiting Oxycodone HCl (Oxycodone Hcl Immed Release 5 Mg Tablet) 5 mg PO Q8H PRN PRN Reason: Pain, Severe (Pain Scale 7-10) Sodium Chloride (0.9 % Sodium Chloride Flush 3 Ml Syringe) 3 ml IVFLUSH QSHIFT [facility] Last Admin: 09/23/21 09:16 Dose: 3 ml Documented by: Spironolactone (Spironolactone 25 Mg Tablet) 100 mg PO DAILY [facility]; Protocol Last Admin: 09/23/21 09:16 Dose: 100 mg Documented by: Time Spent With Patient Time: Total time spent is greater than 50% in coordination of care (as documented) at patient's floor/unit and/or counseling patient: Time with patient: 15 - 24 minutes Progress Note: Quality Stroke Does the patient have a stroke diagnosis?: No Procedures Date of Service Date of Service: 09/23/21
[2021-09-23 12:00] VITALS: BP 99/58; PULSE 79; RESP 19; TEMP 36.2; O2SAT 95
[2021-09-23 15:20] VITALS: BP 104/51; PULSE 89; RESP 18; TEMP 36.7; O2SAT 98
[2021-09-23] MEDS: Magnesium Hydrox/Alum Hydrox 30 ML ORAL.SUSP PO (20:25)
[2021-09-23] MEDS: hydrOXYzine HCL 25 MG TABLET PO (20:25)
[2021-09-23] MEDS: ALPRAZolam 0.25 MG TABLET PO (20:25)
[2021-09-23 23:47] VITALS: BP 111/53; PULSE 60; RESP 18; TEMP 36.6; O2SAT 95
[2021-09-24 04:00] VITALS: BP 98/50; PULSE 67; RESP 18; TEMP 36.4; O2SAT 95
[2021-09-24 06:00] VITALS: BMI 25.0
[2021-09-24 08:00] VITALS: BP 109/58; PULSE 68; RESP 18; TEMP 37.2; O2SAT 92
[2021-09-24] MEDS: Lactulose 20 GM/30 ML SOLUTION PO (09:38)
[2021-09-24] MEDS: Multivitamin TABLET 1 TAB PO (09:38)
[2021-09-24] MEDS: Furosemide 40 MG TABLET PO (09:38)
[2021-09-24] MEDS: 0.9 % Sodium Chloride Flush 3 ML SYRINGE IVFLUSH (09:38)
[2021-09-24] MEDS: Spironolactone 25 MG TABLET 100 MG PO (09:38)
--- NOTE | 2021-09-24 11:22 | MHC.CM.PN ---
CM MET WITH PT YESTERDAY TO DISCUSS DC PLANNING. PT REPORTED SHE WAS UNSURE IF SHE WANTED VNA SHE WAS MARY ANN TO TAKE HER OWN VITALS AND DID NOT WANT THEM COMING IN MESSING UP HER HOME. SHE AGREED TO CONSIDER IT OVER THE WEEKEND AND WOULD CANCEL SATURDAY IF SHE DECIDED SHE DID NOT WANT THEM. SHANTEL ALSO SPOKE TO PTS SON/HCP, PAPO AND ALTERNATE HCP/FRIEND, MANUEL. MANUEL INDICATED SHE FELT A VNA WOULD BE A GOOD IDEA AND SAID SHE WOULD TALK TO PT AND PAPO ABOUT IT MORE. PAPO INDICATED MANUEL HANDLED MORE OF PTS CARE SO WOULD BE THE BEST CONTACT. THEY WERE BOTH INFORMED PT WOULD BE DISCHARGED YESTERDAY WITH [facility] MANUEL INDICATED SHE WOULD TRANSPORT LATER IN THE DAY, SHANTEL WAS INFORMED BY PTS RN THAT WHEN SHE SPOKE TO THE SON HE FELT IT WAS TOO LATE IN THE DAY AND STATED MANUEL WOULD TRANSPORT PT IN THE MORNING. PT DISCHARGED THIS MORNING WITH [facility]. DC SUMMARY AND [facility]
[2021-09-28 07:29] LABS: pH Peritoneal Fluid 7.51
== END 2021-09-24 11:38 | disposition home health service (06) ==
LOC: HO.ED 17:13 → HO.EDOVER 23:25 → HO.IMC 09-22 19:58
PROVIDERS: Physician Assistant; Admitting Provider Internal Medicine; Emergency Provider Emergency Medicine Emergency Medical Services; PCP Internal Medicine; Visit Provider Internal Medicine
DX: K74.60 Unspecified cirrhosis of liver (principal); K72.90 Hepatic failure, unspecified without coma; J91.8 Pleural effusion in other conditions classified elsewhere; K76.6 Portal hypertension; I50.9 Heart failure, unspecified; R18.8 Other ascites; Z20.822 Contact with and (suspected) exposure to COVID-19; Z79.899 Other long term (current) drug therapy
CPT/HCPCS: 32555; 36415; 71046; 71275; 74177; 80048; 80053; 81001; 82042; 82150; 82945; 83615; 83690; 83735; 83880; 83986; 84157; 84484; 85025; 85379; 85610; 87071; 87073; 87205; 87635; 89051; 93005; 93306; 96365; 96366; 96375; 99285; 99291; 99292; J1940; J2060; P9047; Q9967

== ENCOUNTER 2021-10-05 18:10 | Inpatient (IN) | payer OTHER, SELFPAY ==
[2021-10-05 18:18] VITALS: BP 136/61; PULSE 76; O2SAT 94
--- NOTE | 2021-10-05 18:26 | ED_ITS ---
HPI - GI Bleed General Chief complaint: GI Bleed Stated complaint: gi bleed Time Seen by Provider: 10/05/21 18:25 Source: patient Mode of arrival: ambulatory Limitations: no limitations History of Present Illness HPI Narrative: 81-year-old female with a past medical history of aortic stenosis, cirrhosis, ascites s/p multiple paracentesis', IBS, presenting to the emergency department with complaints of blood per rectum x4 days. Patient reports being constipated and then having a very hard bowel movement, since then she has been having bright red blood per rectum that is both mixed into her stool and filling up the toilet bowl. She tells me that she is not having abdominal pain, nausea, vomiting. Her stool is now liquid stool and she continues to have bright red blood per rectum. She tells me it does not hurt. She denies fevers, chills, nausea, vomiting, chest pain, shortness of breath, changes in urination. MD complaint: blood on toilet paper, blood streaked stool and gross hematochezia Onset (ago): day(s) (4) Pain Consistency: constant Severity: severe Relieving factors: none Exacerbating factors: none Context: liver disease and known esophageal varices Associated symptoms: denies other symptoms Treatments Prior to Arrival: none Related Data Home Medications Medication Instructions Recorded Confirmed furosemide 40 mg tablet 40 mg PO DAILY 06/08/21 09/22/21 lactulose 10 gram/15 mL oral 30 ml PO BID 06/13/21 09/22/21 solution alprazolam 0.25 mg tablet 0.25 mg PO DAILY PRN 06/14/21 09/22/21 multivitamin 1 tab PO DAILY 06/14/21 09/22/21 acetaminophen 500 mg tablet 500 mg PO Q6H PRN 08/18/21 09/22/21 spironolactone 100 mg tablet 1 tab PO DAILY 08/18/21 09/22/21 vitamin B complex 1 tab PO DAILY 08/18/21 09/22/21 tretinoin 0.05 % topical cream 1 applic TOPICAL BEDTIME 09/22/21 09/22/21 Previous Rx's Medication Instructions Recorded oxycodone 5 mg tablet 5 mg PO Q8H PRN #9 tab 08/21/21 hydroxyzine HCl 25 mg tablet 1 tab PO TID PRN #15 tab 09/24/21 Allergies Allergy/AdvReac Type Severity Reaction Status Date / Time latex Allergy Intermediate Unknown Verified 06/16/21 08:01 Review of Systems Review of Systems: Constitutional : No Weight loss, No Fever, No Chills, No Fatigue, No Malaise ENT/Mouth : No sore throat, No Rhinorrhea Eyes: No Eye Pain, No Swelling, No Redness Cardiovascular : No Chest Pain, No SOB, No Dyspnea on Exertion, No Orthopnea, No Edema, No Palpitations Respiratory : No Cough, No Sputum, No Wheezing Gastrointestinal : No Nausea, No Vomiting, No Diarrhea, No Constipation, No abdominal Pain, No Hematochezia, No Melena Genitourinary : No Dysuria, No Urinary Frequency, No Hematuria, +hematochezia Musculoskeletal : No joint pain, No Myalgias, No Joint Swelling Skin : No Skin Lesions, No rash Neuro : No Weakness, No Numbness, No Dizziness, No Headache Psych : No Anxiety/Panic, No Depression All other systems reviewed and are negative Yes all other systems are reviewed and are negative [facility] Past Medical History Attestation statement: The following information was validated with the patient. Source: old records reviewed and nursing notes reviewed Medical History Aortic stenosis Ascites Ascites Cirrhosis Irritable bowel Pleural effusion Surgical History History of colonoscopy Family History Family History Sister CAD (coronary artery disease) Social History Social History Household Members: None Housing: House Do you presently have visiting nurse or other home services: Yes Alcohol intake: never Patient Tobacco Use Status: Never used Tobacco Advance Directives: No service: Yes Current occupational status: retired Physical Exam Vital Signs: Vital Signs: Last Vital Signs Temp 98.5 F 10/05/21 18:35 Pulse 78 10/05/21 18:35 Resp 16 10/05/21 18:35 BP 131/51 L 10/05/21 18:35 Pulse Ox 96 10/05/21 18:35 BMI result Body Mass Index 26.6 VSS Appearance: Alert.? Oriented X3.? No acute distress.? Head: Normocephalic, atraumatic, no step-offs or deformities Eyes: Pupils equal, round and reactive to light.? ENT: Pharynx normal.? Neck: Normal inspection.? Neck supple.? CVS: Normal heart rate and rhythm.? Pulses normal.? Respiratory: No respiratory distress.? Breath sounds normal.? Abdomen: Soft and nontender.?+ distended ascites noted Skin: Skin warm and dry.? Normal skin color.? Normal skin turgor.? Sensitive exam: Chaperoned by Jarvis HOLDER. External nonthrombosed, nonbleeding hemorrhoids noted. Rectal vault with no lumps or masses, no palpation of internal hemorrhoids however there is violet red blood per rectum. OBS sent to the lab for analysis. Extremities: No lower extremity edema.? No calf ttp. 5/5 strength to bilateral upper and lower extremities Back: No midline tenderness, no C-spine tenderness, full range of motion, no CVA tenderness bilaterally Neuro: Oriented X 3.? No motor deficit.? No sensory deficit. CN 2-12 intact Course Reevaluation(s) Reevaluation #1: Spoke to Dr. Moore if she starts bleeding to do cta to localize bleeding. Patient's laboratory studies appear to be at baseline. Platelets higher than last time 99. PT 15.5, INR 1.4. Chemistry appears to be at baseline. COVID negative. Time: 19:27 Reevaluation #2: At this time patient is hemodynamically stable. I will admit patient for observation to ensure that bleeding resolves as she is currently still bleeding however her labs appear as though patient is stable. Patient not complaining of any pain. Dr. Batista will admit patient. Time: 20:38 MDM - GI Bleed [facility] Narrative Medical decision making narrative: 1828 81 yo f presents with bright red blood per rectum X 4 days. To note patient was recently started on oxycodone, she had constipation and then began having bright red blood per rectum after a hard BM PE significant for distended abdomen she has ascites. Regular rate and rhythm. Lungs-clear. Sensitive exam with bright red blood per rectum upon digital exam. OBS sent to the lab for evaluation. Patient's vital signs are stable and she is hemodynamically stable at this time. Will wait for labs and then I will contact GI for guidance Plan at this time is type and screen, basic labs, PT INR, obs Medical Records Attestation: I reviewed the patient's medical records. Lab Data Attestation: I reviewed the patient's lab results. Result diagrams: 10/05/21 18:52 10/05/21 18:52 Labs: Lab Results 10/05/21 10/05/21 10/05/21 Range/Units 18:51 18:52 18:52 WBC 8.3 (4.8-10.8) X10*3/uL RBC 3.49 L (4.20-5.50) X10*6/uL Hgb 12.4 (12.0-16.0) g/dl Hct 36.1 L (37.0-47.0) % MCV 103.4 H (80.0-98.0) fL MCH 35.5 H (27.0-33.0) pg MCHC 34.3 (31.0-35.0) g/dl RDW 14.8 (11.0-16.0) % Plt Count 99 L D (160-400) X10*3/uL MPV 9.8 (9.4-12.3) fL Immature Gran % (Auto) 0.5 H (0.0-0.4) % Neut % (Auto) 66.2 (45-73) % Lymph % (Auto) 19.4 L (20-40) % [place] % (Auto) 10.2 (2-11) % Eos % (Auto) 2.5 (0-4) % Baso % (Auto) 1.2 (0-2) % Lymph # (Auto) 1.6 (1.2-4.9) X10*3/uL [place] # (Auto) 0.9 (0.1-1.2) X10*3/uL Eos # (Auto) 0.2 (0.0-0.4) X10*3/uL Baso # (Auto) 0.1 (0.0-0.2) X10*3/uL Abs Immat Gran (auto) 0.04 H (0.00-0.03) X10*3/uL Absolute Neuts (auto) 5.5 (2.0-8.3) x10*3/uL Absolute Nucleated RBC 0.000 (0.0-0.012) X10*3/uL Nucleated RBC % (auto) 0.0 (0.0-0.2) /100WBC PT 15.5 H (9.9-13.0) SEC INR 1.4 H (0.9-1.1) Sodium 136 (135-145) mmol/L Potassium 3.9 (3.3-5.1) mmol/L Chloride 102 (96-108) mmol/L Carbon Dioxide 20 L (22-29) mmol/L Anion Gap 18 (12-20) BUN 17 H (9-16) mg/dL Creatinine 1.00 (0.5-1.4) mg/dL Estim Creat Clear Calc 43.1 Estimated GFR 53 Random Glucose 91 (60-115) mg/dL Calcium 8.7 (8.4-10.2) mg/dL Magnesium 1.9 (1.6-2.6) mg/dL Total Bilirubin 5.2 H (0.0-1.0) mg/dL AST 56 H (5-31) U/L ALT 28 (0-31) U/L Alkaline Phosphatase 125 H (39-117) U/L Total Protein 6.9 (6.5-8.0) g/dL Albumin 3.0 L (3.5-5.0) g/dL Stool Occult Blood (NEGATIVE) COVID-19 ([facility]) (Negative) COVID-19 Clin Com Blood Type Antibody Screen 10/05/21 10/05/21 10/05/21 Range/Units 18:52 19:04 19:04 WBC (4.8-10.8) X10*3/uL RBC (4.20-5.50) X10*6/uL Hgb (12.0-16.0) g/dl Hct (37.0-47.0) % MCV (80.0-98.0) fL MCH (27.0-33.0) pg MCHC (31.0-35.0) g/dl RDW (11.0-16.0) % Plt Count (160-400) X10*3/uL MPV (9.4-12.3) fL Immature Gran % (Auto) (0.0-0.4) % Neut % (Auto) (45-73) % Lymph % (Auto) (20-40) % [place] % (Auto) (2-11) % Eos % (Auto) (0-4) % Baso % (Auto) (0-2) % Lymph # (Auto) (1.2-4.9) X10*3/uL [place] # (Auto) (0.1-1.2) X10*3/uL Eos # (Auto) (0.0-0.4) X10*3/uL Baso # (Auto) (0.0-0.2) X10*3/uL Abs Immat Gran (auto) (0.00-0.03) X10*3/uL Absolute Neuts (auto) (2.0-8.3) x10*3/uL Absolute Nucleated RBC (0.0-0.012) X10*3/uL Nucleated RBC % (auto) (0.0-0.2) /100WBC PT (9.9-13.0) SEC INR (0.9-1.1) Sodium (135-145) mmol/L Potassium (3.3-5.1) mmol/L Chloride (96-108) mmol/L Carbon Dioxide (22-29) mmol/L Anion Gap (12-20) BUN (9-16) mg/dL Creatinine (0.5-1.4) mg/dL Estim Creat Clear Calc Estimated GFR Random Glucose (60-115) mg/dL Calcium (8.4-10.2) mg/dL Magnesium (1.6-2.6) mg/dL Total Bilirubin (0.0-1.0) mg/dL AST (5-31) U/L ALT (0-31) U/L Alkaline Phosphatase (39-117) U/L Total Protein (6.5-8.0) g/dL Albumin (3.5-5.0) g/dL Stool Occult Blood POSITIVE (NEGATIVE) COVID-19 ([facility]) Negative (Negative) COVID-19 Clin Com See Note Blood Type A Negative Antibody Screen NEGATIVE Critical Care Time Critical Care Time Critical Care Time: No Discharge Plan Discharge Clinical Impression: GI bleed Patient Disposition: Admitted As Inpatient Prescriptions: No Action vitamin B complex Tablet Extended Release 1 tab PO DAILY 0RF spironolactone 100 mg tablet 1 tab PO DAILY 0RF acetaminophen 500 mg Tablet 500 mg PO Q6H PRN (Reason: Pain (Scale Score 1-3)) 0RF oxycodone 5 mg tablet 5 mg PO Q8H PRN (Reason: pain) Qty: 9 0RF lactulose 10 gram/15 mL solution 30 ml PO BID 0RF multivitamin Tablet 1 tab PO DAILY 0RF alprazolam 0.25 mg Tablet 0.25 mg PO DAILY PRN (Reason: Anxiety) 0RF tretinoin 0.05 % cream 1 applic topical BEDTIME 0RF hydroxyzine HCl 25 mg tablet 1 tab PO TID PRN (Reason: Anxiety) Qty: 15 0RF furosemide 40 mg tablet 40 mg PO DAILY 0RF
[2021-10-05 18:35] VITALS: BP 131/51; PULSE 78; RESP 16; TEMP 36.9; O2SAT 96; BMI 26.6
[2021-10-05 18:55] LABS: MANUAL DIFF FLAG NO
[2021-10-05 18:56] LABS: Basophils Absolute Auto 0.1 X10*3/uL (0.0-0.2); Basophils Percent Auto 1.2 % (0-2); Eosinophils Absolute Auto 0.2 X10*3/uL (0.0-0.4); Eosinophils Percent Auto 2.5 % (0-4); Hematocrit 36.1 % (37.0-47.0); Hemoglobin 12.4 g/dl (12.0-16.0); Imm Gran Abs Auto 0.04 X10*3/uL (0.00-0.03); Imm Gran Pct Auto 0.5 % (0.0-0.4); Lymphocytes Absolute Auto 1.6 X10*3/uL (1.2-4.9); Lymphocytes Percent Auto 19.4 % (20-40); Mean Corpuscular HGB Conc 34.3 g/dl (31.0-35.0); Mean Corpuscular Hemoglobin 35.5 pg (27.0-33.0); Mean Corpuscular Volume 103.4 fL (80.0-98.0); Mean Platelet Volume 9.8 fL (9.4-12.3); Monocytes Absolute Auto 0.9 X10*3/uL (0.1-1.2); Monocytes Percent Auto 10.2 % (2-11); Neutrophils Absolute Auto 5.5 x10*3/uL (2.0-8.3); Neutrophils Percent Auto 66.2 % (45-73); Red Blood Count 3.49 X10*6/uL (4.20-5.50); Red Cell Distribution Width 14.8 % (11.0-16.0); White Blood Count 8.3 X10*3/uL (4.8-10.8)
[2021-10-05 18:57] LABS: Platelet Count 99 X10*3/uL (160-400)
[2021-10-05 19:02] LABS: INTERNATIONAL NORM RATIO 1.4 (0.9-1.1); Prothrombin Time 15.5 SEC (9.9-13.0)
[2021-10-05 19:10] LABS: OBS Int Ctl Valid YES; OBS1 POSITIVE (NEGATIVE)
[2021-10-05 19:12] LABS: Alanine Aminotransferase 28 U/L (0-31); Alkaline Phosphatase 125 U/L (39-117); Anion Gap 18 (12-20); Aspartate Amino Transferase 56 U/L (5-31); Bilirubin Total 5.2 mg/dL (0.0-1.0); Blood Urea Nitrogen 17 mg/dL (9-16); Calcium 8.7 mg/dL (8.4-10.2); Carbon Dioxide 20 mmol/L (22-29); Chloride 102 mmol/L (96-108); Creatinine Clr Calc Pharmacy 43.1; Estimated Glomerular Filt Rate 53; Glucose Random 91 mg/dL (60-115); Magnesium 1.9 mg/dL (1.6-2.6); Potassium 3.9 mmol/L (3.3-5.1); Sodium 136 mmol/L (135-145); Total Protein 6.9 g/dL (6.5-8.0)
[2021-10-05 19:23] LABS: COVID-19 Test Negative (Negative); IDNOW Serial# 16C4AD1C
--- NOTE | 2021-10-05 20:58 | PHA.MEDREC ---
Pharmacy Consult ? Medication Reconciliation Pharmacy has completed the medication reconciliation.
[2021-10-05 21:38] VITALS: BP 108/40; PULSE 61; RESP 16; TEMP 36.7; O2SAT 95
--- NOTE | 2021-10-05 21:58 | P.HPHOSP_ITS ---
History of Present Illness Date of Service: 10/05/21 Chief Complaint: BRBPR 81-year-old female with past medical history of aortic stenosis, non alcoholic liver cirrhosis, decompensated with ascites, on. Therapeutic paracentesis, history of IBS, esophageal varices, portal hypertension, who presents to the hospital with complaints of bloody bowel movements. Patient reports that her symptoms initially started with constipation for 4 days, then she started developing blood with each bowel movement for the next 4 days. Patient is not a good historian and is not giving too much detail around the bloody movements. She denies having any abdominal pain, reports that she was compliant with her lactulose and even tried MiraLax but she continued to have constipation. She denies any changes in mentation, no headache or change in vision, no chest pain, no shortness of breath, no urinary symptoms and no lower extremity edema. On arrival to the ED patient hemodynamically stable with no significant abnormal vitals Labs are significant for WBC count of 8.3, hemoglobin of 12.4, hematocrit 36.1, PT of 15.5, INR of 1.4, total bili of 5.2, AST of 56, stool occult blood positive GI was consulted by ED, recommended admission for further evaluation Review of Systems Review of Systems: Yes all other systems are reviewed and are negative [facility] Medical History Aortic stenosis Ascites Ascites Cirrhosis Esophageal varices Irritable bowel Pleural effusion Portal hypertension Family History Sister CAD (coronary artery disease) Surgical History History of colonoscopy Social History Household Members: None Housing: House Do you presently have visiting nurse or other home services: Yes Alcohol intake: never Patient Tobacco Use Status: Never used Tobacco Advance Directives: No service: Yes Current occupational status: retired Meds Allergies Allergy/AdvReac Type Severity Reaction Status Date / Time latex Allergy Intermediate Unknown Verified 06/16/21 08:01 Active Medications: Current Medications Acetaminophen (Acetaminophen 325 Mg Tablet) 650 mg PO Q6H PRN PRN Reason: Pain, Mild (Pain Scale 1-3) Ondansetron HCl (Ondansetron Hcl 4 Mg/2 Ml Vial) 4 mg IVPUSH Q8H PRN PRN Reason: Nausea and Vomiting Pantoprazole Sodium (Pantoprazole Sodium 40 Mg/10 Ml Vial) 40 mg IVPUSH BID@0630,1630 [facility] Pharmacy Consult (Consult Rx Perform Med Rec) 1 each MISCELLANE ONCE PRN PRN Reason: Consult order Sodium Chloride (0.9 % Sodium Chloride Flush 3 Ml Syringe) 3 ml IVFLUSH QSHIFT [facility] Home Medications Medication Instructions Recorded Confirmed Last Taken Type furosemide 40 mg tablet 40 mg PO DAILY 06/08/21 10/05/21 08/18/21 History lactulose 10 gram/15 mL oral 30 ml PO BID 06/13/21 10/05/21 08/18/21 History solution alprazolam 0.25 mg tablet 0.25 mg PO DAILY PRN 06/14/21 10/05/21 08/18/21 History multivitamin 1 tab PO DAILY 06/14/21 10/05/21 08/18/21 History acetaminophen 500 mg tablet 500 mg PO Q6H PRN 08/18/21 10/05/21 08/18/21 History spironolactone 100 mg tablet 1 tab PO DAILY 08/18/21 10/05/21 08/18/21 History vitamin B complex 1 tab PO DAILY 08/18/21 10/05/21 08/18/21 History tretinoin 0.05 % topical cream 1 applic TOPICAL BEDTIME 09/22/21 10/05/21 Unknown History Physical Exam Vital Signs and Narrative: Vital Signs: Last Vital Signs Temp 98.1 F 10/05/21 21:38 Pulse 61 10/05/21 21:38 Resp 16 10/05/21 21:38 BP 108/40 L 10/05/21 21:38 Pulse Ox 95 10/05/21 21:38 BMI result Body Mass Index 26.6 Const: General: cooperative and no acute distress Orientation/co nsciousness: patient oriented x3 Eyes: General: appearance normal, both eyes and all related structures Pupils: Equal, round and reactive pupils present Resp: Effort & Inspection: normal respiratory effort Auscultation: clear to auscultation bilaterally Cardio: Rate: regular rate Rhythm: regular rhythm GI: Other: No rebound or guarding Palpation (GI): Soft to palpation Auscultation: normal bowel sounds Skin: General skin exam: no rashes or lesions noted Neuro: General: patient oriented x3 Cranial nerves: Yes Equal, round and reactive pupils present Cognition (Neuro): normal cognition Extrem: General: Yes normal to inspection and Yes no pedal edema Results Labs CBC and Chem 7: 10/05/21 18:52 10/05/21 18:52 Labs: Laboratory Results - last 24 hr 10/05/21 10/05/21 10/05/21 18:51 18:52 18:52 MCV 103.4 H MCH 35.5 H MCHC 34.3 RDW 14.8 Plt Count 99 L D MPV 9.8 Immature Gran % (Auto) 0.5 H Neut % (Auto) 66.2 Lymph % (Auto) 19.4 L [place] % (Auto) 10.2 Eos % (Auto) 2.5 Baso % (Auto) 1.2 Lymph # (Auto) 1.6 [place] # (Auto) 0.9 Eos # (Auto) 0.2 Baso # (Auto) 0.1 Abs Immat Gran (auto) 0.04 H Absolute Neuts (auto) 5.5 Absolute Nucleated RBC 0.000 Nucleated RBC % (auto) 0.0 PT 15.5 H INR 1.4 H Anion Gap 18 Estim Creat Clear Calc 43.1 Estimated GFR 53 Random Glucose 91 Calcium 8.7 Magnesium 1.9 Total Bilirubin 5.2 H AST 56 H ALT 28 Alkaline Phosphatase 125 H Total Protein 6.9 Albumin 3.0 L Stool Occult Blood COVID-19 ([facility]) COVID-19 Clin Com Blood Type Antibody Screen 10/05/21 10/05/21 10/05/21 18:52 19:04 19:04 MCV MCH MCHC RDW Plt Count MPV Immature Gran % (Auto) Neut % (Auto) Lymph % (Auto) [place] % (Auto) Eos % (Auto) Baso % (Auto) Lymph # (Auto) [place] # (Auto) Eos # (Auto) Baso # (Auto) Abs Immat Gran (auto) Absolute Neuts (auto) Absolute Nucleated RBC Nucleated RBC % (auto) PT INR Anion Gap Estim Creat Clear Calc Estimated GFR Random Glucose Calcium Magnesium Total Bilirubin AST ALT Alkaline Phosphatase Total Protein Albumin Stool Occult Blood POSITIVE COVID-19 ([facility]) Negative COVID-19 Clin Com See Note Blood Type A Negative Antibody Screen NEGATIVE Assessment and Plan (1) Blood per rectum: Status: Acute (2) Constipation: Status: Acute Plan This is an 81-year-old female with past medical history of nonalcoholic liver c irrhosis as well as a visual versus presents the hospital with GI bleed # Blood pre rectum - likely hemorrhoidal in the setting of constipation but given her history of septic halfway varices as well as liver cirrhosis other etiologies of GI bleed cannot be ruled out - patient hemodynamically stable, H&H stable - consult GI - follow CBC # constipation - patient reports compliance with her lactulose - resume lactulose and will add MiraLax # history of liver cirrhosis with ascites - continue Lasix and spironolactone DVT prophylaxis: SCDs Quality Stroke Does the patient have a stroke diagnosis?: No VTE Prior VTE?: No VTE Risk Level:: Medical - moderate - high VTE Device Contraindication: N/A - Device Ordered VTE Drug Contraindication: Treatment Not Indicated
[2021-10-05 22:44] VITALS: BP 107/38; PULSE 56; RESP 16; TEMP 36.7; O2SAT 94
[2021-10-05] MEDS: diphenhydrAMINE HCL 25 MG TABLET PO (23:48)
[2021-10-06 01:00] VITALS: BP 120/51; PULSE 57; RESP 16; TEMP 37; O2SAT 96
[2021-10-06 07:41] LABS: MANUAL DIFF FLAG NO
[2021-10-06 07:43] LABS: Basophils Percent Auto 0.7 % (0-2); Eosinophils Absolute Auto 0.2 X10*3/uL (0.0-0.4); Eosinophils Percent Auto 3.5 % (0-4); Hematocrit 32.9 % (37.0-47.0); Hemoglobin 11.3 g/dl (12.0-16.0); Imm Gran Abs Auto 0.02 X10*3/uL (0.00-0.03); Imm Gran Pct Auto 0.4 % (0.0-0.4); Lymphocytes Percent Auto 22.2 % (20-40); Mean Corpuscular HGB Conc 34.3 g/dl (31.0-35.0); Mean Corpuscular Hemoglobin 35.2 pg (27.0-33.0); Mean Corpuscular Volume 102.5 fL (80.0-98.0); Mean Platelet Volume 9.7 fL (9.4-12.3); Monocytes Absolute Auto 0.6 X10*3/uL (0.1-1.2); Monocytes Percent Auto 12.3 % (2-11); Neutrophils Absolute Auto 2.8 x10*3/uL (2.0-8.3); Neutrophils Percent Auto 60.9 % (45-73); Platelet Count 79 X10*3/uL (160-400); Red Blood Count 3.21 X10*6/uL (4.20-5.50); Red Cell Distribution Width 14.6 % (11.0-16.0); White Blood Count 4.5 X10*3/uL (4.8-10.8)
[2021-10-06 07:49] LABS: Ammonia 43 umol/L (13-55)
[2021-10-06] MEDS: Pantoprazole Sodium 40 MG/10 ML VIAL IVPUSH (07:51)
[2021-10-06 07:56] LABS: Anion Gap 11 (12-20); Blood Urea Nitrogen 16 mg/dL (9-16); Calcium 8.3 mg/dL (8.4-10.2); Carbon Dioxide 24 mmol/L (22-29); Chloride 105 mmol/L (96-108); Creatinine Clr Calc Pharmacy 54.6; Estimated Glomerular Filt Rate > 60; Glucose Random 77 mg/dL (60-115); Potassium 3.9 mmol/L (3.3-5.1); Sodium 136 mmol/L (135-145)
--- NOTE | 2021-10-06 07:57 | PM.EVENT ---
Event Note Date of Service: 10/06/21 Event Note: I personally saw and examined this patient who was admitted this morning withr rectal bleeding, she's hemodynamically, there is just mild shift in her hemoglobin, suspect diverticular bleed. Check with GI if will need further testing.
--- NOTE | 2021-10-06 08:05 | HO.PM.IMPN ---
Subjective Subjective Date of Service: 10/06/21 Interval History: f/u on rectal bleed, acute blood loss anemia, no active bled Review of Systems no fever no rectal bleed at moment, no abdominal pain Physical Exam Vital Signs: Vital Signs: Last Vital Signs Temp 98.6 F 10/06/21 01:00 Pulse 57 10/06/21 01:00 Resp 16 10/06/21 01:00 BP 120/51 L 10/06/21 01:00 Pulse Ox 96 10/06/21 01:00 BMI result Body Mass Index 26.6 Const: Other: General: AO X , no acute distress Resp: CTA bilateral CVS: S1,S2,RRR GI: +BS, NT, no distention Skin: No rash Neuro: motor grossly intact Psych: appropriate affect Objective Data Active Medications Acetaminophen (Acetaminophen 325 Mg Tablet) 650 mg PO Q6H PRN PRN Reason: Pain, Mild (Pain Scale 1-3) Alprazolam (Alprazolam 0.25 Mg Tablet) 0.25 mg PO DAILY PRN PRN Reason: Anxiety Furosemide (Furosemide 40 Mg Tablet) 40 mg PO DAILY [facility]; Protocol Hydroxyzine HCl (Hydroxyzine Hcl 25 Mg Tablet) 25 mg PO TID PRN PRN Reason: Anxiety Lactulose (Lactulose 20 Gm/30 Ml Solution) 20 gm PO BID [facility] Multivitamins/Vitamin C (Multivitamin Tablet) 1 tab PO DAILY [facility] Multivitamins/Vitamin C (Multivitamin Tablet) 1 tab PO DAILY [facility] Non-Formulary Medication (Tretinoin) 1 applic TOPICAL BEDTIME [facility] Ondansetron HCl (Ondansetron Hcl 4 Mg/2 Ml Vial) 4 mg IVPUSH Q8H PRN PRN Reason: Nausea and Vomiting Oxycodone HCl (Oxycodone Hcl Immed Release 5 Mg Tablet) 5 mg PO Q8H PRN PRN Reason: Pain, Severe (Pain Scale 7-10) Pantoprazole Sodium (Pantoprazole Sodium 40 Mg/10 Ml Vial) 40 mg IVPUSH BID@0630,1630 [facility] Last Admin: 10/06/21 07:51 Dose: 40 mg Documented by: [place] Pharmacy Consult (Consult Rx Perform Med Rec) 1 each MISCELLANE ONCE PRN PRN Reason: Consult order Polyethylene Glycol (Polyethylene Glycol 3350 17 Gm Powd.Pack) 17 gm PO DAILY [facility] Sodium Chloride (0.9 % Sodium Chloride Flush 3 Ml Syringe) 3 ml IVFLUSH QSHIFT [facility] Last Admin: 10/06/21 00:15 Dose: Not Given Documented by: TUAN Non-Admin Reason: Patient Asleep Spironolactone (Spironolactone 25 Mg Tablet) 100 mg PO DAILY [facility]; Protocol Labs CBC & Chem 7: 10/06/21 07:37 10/06/21 07:37 Labs: Laboratory Results - last 24 hr 10/05/21 10/05/21 10/05/21 18:51 18:52 18:52 MCV 103.4 H MCH 35.5 H MCHC 34.3 RDW 14.8 Plt Count 99 L D MPV 9.8 Immature Gran % (Auto) 0.5 H Neut % (Auto) 66.2 Lymph % (Auto) 19.4 L [place] % (Auto) 10.2 Eos % (Auto) 2.5 Baso % (Auto) 1.2 Lymph # (Auto) 1.6 [place] # (Auto) 0.9 Eos # (Auto) 0.2 Baso # (Auto) 0.1 Abs Immat Gran (auto) 0.04 H Absolute Neuts (auto) 5.5 Absolute Nucleated RBC 0.000 Nucleated RBC % (auto) 0.0 PT 15.5 H INR 1.4 H Anion Gap 18 Estim Creat Clear Calc 43.1 Estimated GFR 53 Random Glucose 91 Calcium 8.7 Magnesium 1.9 Total Bilirubin 5.2 H AST 56 H ALT 28 Alkaline Phosphatase 125 H Ammonia Total Protein 6.9 Albumin 3.0 L Stool Occult Blood COVID-19 ([facility]) COVID-19 Clin Com Blood Type Antibody Screen 10/05/21 10/05/21 10/05/21 18:52 19:04 19:04 MCV MCH MCHC RDW Plt Count MPV Immature Gran % (Auto) Neut % (Auto) Lymph % (Auto) [place] % (Auto) Eos % (Auto) Baso % (Auto) Lymph # (Auto) [place] # (Auto) Eos # (Auto) Baso # (Auto) Abs Immat Gran (auto) Absolute Neuts (auto) Absolute Nucleated RBC Nucleated RBC % (auto) PT INR Anion Gap Estim Creat Clear Calc Estimated GFR Random Glucose Calcium Magnesium Total Bilirubin AST ALT Alkaline Phosphatase Ammonia Total Protein Albumin Stool Occult Blood POSITIVE COVID-19 ([facility]) Negative COVID-19 Clin Com See Note Blood Type A Negative Antibody Screen NEGATIVE 10/06/21 10/06/21 10/06/21 07:37 07:37 07:37 MCV 102.5 H MCH 35.2 H MCHC 34.3 RDW 14.6 Plt Count 79 L MPV 9.7 Immature Gran % (Auto) 0.4 Neut % (Auto) 60.9 Lymph % (Auto) 22.2 [place] % (Auto) 12.3 H Eos % (Auto) 3.5 Baso % (Auto) 0.7 Lymph # (Auto) 1.0 L [place] # (Auto) 0.6 Eos # (Auto) 0.2 Baso # (Auto) 0.0 Abs Immat Gran (auto) 0.02 Absolute Neuts (auto) 2.8 Absolute Nucleated RBC 0.000 Nucleated RBC % (auto) 0.0 PT INR Anion Gap 11 L Estim Creat Clear Calc 54.6 Estimated GFR > 60 Random Glucose 77 Calcium 8.3 L Magnesium Total Bilirubin AST ALT Alkaline Phosphatase Ammonia 43 Total Protein Albumin Stool Occult Blood COVID-19 ([facility]) COVID-19 Clin Com Blood Type Antibody Screen Assessment and Plan (1) GI bleed: Status: Acute (2) Constipation: Status: Acute (3) Blood per rectum: Status: Acute Plan 81-year-old female with past medical history of nonalcoholic liver cirrhosis as well as a visual versus presents the hospital with GI bleed # Rectal bleed, suspecting hemorrhoidal in the setting of constipation, but has history of varices but don't think that is cause -Serial H/H -GI eval # constipation--continue lactulose and Miralax # history of liver cirrhosis with ascites - continue Lasix and spironolactone DVT prophylaxis:? SCDs Quality Stroke Does the patient have a stroke diagnosis?: No VTE Prior VTE?: No VTE Risk Level:: Medical - moderate - high VTE Device Contraindication: N/A - Device Ordered VTE Drug Contraindication: Treatment Not Indicated
[2021-10-06] MEDS: Lactulose 20 GM/30 ML SOLUTION PO (08:56)
[2021-10-06] MEDS: Spironolactone 25 MG TABLET 100 MG PO (08:56)
[2021-10-06] MEDS: Multivitamin TABLET 1 TAB PO (08:57)
[2021-10-06] MEDS: polyethylene glycoL 3350 17 GM POWD.PACK PO (08:57)
[2021-10-06] MEDS: Furosemide 40 MG TABLET PO (08:57)
[2021-10-06] MEDS: 0.9 % Sodium Chloride Flush 3 ML SYRINGE IVFLUSH (08:57)
[2021-10-06 08:59] VITALS: BP 133/48; PULSE 67; RESP 16; O2SAT 96
--- NOTE | 2021-10-06 12:41 | P.CNGI_ITS ---
History of Present Illness Data of Consult Service Date: 10/06/21 Requesting physician: Emma Batista Primary Care Provider: Hardik Claros MD HPI Reason for consult: gi bleed, requesting to see Dr. Vogt 81-year-old female with aortic stenosis, non alcoholic liver cirrhosis, decompensated with ascites and pleural effusion treated with periodic large volume paracentesis, history of IBS, gastric varices, portal hypertension, who was admitted to [facility] last night with bloody bowel movements.? Patient reports that her symptoms initially started with constipation for 4 days, then she started developing blood with each bowel movement for the next 4 days.? Patient is not a good historian and is reluctant to give any details - states all the information is in my chart.? She denies abdominal pain, reports that she was compliant with her lactulose and takes MiraLax prn and continued to have constipation.? Pt denies any changes in mentation, no headache or change in vision, no chest pa in, no shortness of breath, no urinary symptoms and no lower extremity edema. On arrival to the ED patient was hemodynamically stable. Labs are significant for WBC count of 8.3, hemoglobin of 12.4, hematocrit 36.1, PT of 15.5, INR of 1.4, total bili of 5.2, AST of 56, stool occult blood positive FU H & H this am is at baseline for the patient. She reports having a generous BM with minimal blood . Review of Systems Review of Systems: Yes all other systems are reviewed and are negative PMFSH Past Medical History Medical History (Updated 10/14/21 @ 00:02 by Veronika Burrell) Aortic stenosis Ascites Ascites Cirrhosis Esophageal varices Irritable bowel Pleural effusion Portal hypertension Family History Family History Sister CAD (coronary artery disease) Surgical History Surgical History History of colonoscopy Social History Social History Household Members: None Housing: House Do you presently have visiting nurse or other home services: Yes Alcohol intake: never Patient Tobacco Use Status: Never used Tobacco service: Yes Current occupational status: retired Meds Allergies Allergy/AdvReac Type Severity Reaction Status Date / Time latex Allergy Intermediate Unknown Verified 06/16/21 08:01 Active Medications: Current Medications Acetaminophen (Acetaminophen 325 Mg Tablet) 650 mg PO Q6H PRN PRN Reason: Pain, Mild (Pain Scale 1-3) Alprazolam (Alprazolam 0.25 Mg Tablet) 0.25 mg PO DAILY PRN PRN Reason: Anxiety Furosemide (Furosemide 40 Mg Tablet) 40 mg PO DAILY [facility]; Protocol Last Admin: 10/06/21 08:57 Dose: 40 mg Documented by: Hydroxyzine HCl (Hydroxyzine Hcl 25 Mg Tablet) 25 mg PO TID PRN PRN Reason: Anxiety Lactulose (Lactulose 20 Gm/30 Ml Solution) 20 gm PO BID [facility] Last Admin: 10/06/21 08:56 Dose: 20 gm Documented by: Multivitamins/Vitamin C (Multivitamin Tablet) 1 tab PO DAILY [facility] Last Admin: 10/06/21 08:57 Dose: 1 tab Documented by: Non-Formulary Medication (Tretinoin) 1 applic TOPICAL BEDTIME [facility] Ondansetron HCl (Ondansetron Hcl 4 Mg/2 Ml Vial) 4 mg IVPUSH Q8H PRN PRN Reason: Nausea and Vomiting Oxycodone HCl (Oxycodone Hcl Immed Release 5 Mg Tablet) 5 mg PO Q8H PRN PRN Reason: Pain, Severe (Pain Scale 7-10) Pantoprazole Sodium (Pantoprazole Sodium 40 Mg/10 Ml Vial) 40 mg IVPUSH BID@0630,1630 [facility] Last Admin: 10/06/21 07:51 Dose: 40 mg Documented by: Pharmacy Consult (Consult Rx Perform Med Rec) 1 each MISCELLANE ONCE PRN PRN Reason: Consult order Polyethylene Glycol (Polyethylene Glycol 3350 17 Gm Powd.Pack) 17 gm PO DAILY [facility] Last Admin: 10/06/21 08:57 Dose: 17 gm Documented by: Sodium Chloride (0.9 % Sodium Chloride Flush 3 Ml Syringe) [facility] Last Admin: 10/06/21 08:57 Dose: 3 ml Documented by: Spironolactone (Spironolactone 25 Mg Tablet) 100 mg PO DAILY [facility]; Protocol Last Admin: 10/06/21 08:56 Dose: 100 mg Documented by: Home Medications Medication Instructions Recorded Confirmed Last Taken Type furosemide 40 mg tablet 40 mg PO DAILY 06/08/21 10/05/21 08/18/21 History lactulose 10 gram/15 mL oral 30 ml PO BID 06/13/21 10/05/21 08/18/21 History solution alprazolam 0.25 mg tablet 0.25 mg PO DAILY PRN 06/14/21 10/05/21 08/18/21 History multivitamin 1 tab PO DAILY 06/14/21 10/05/21 08/18/21 History acetaminophen 500 mg tablet 500 mg PO Q6H PRN 08/18/21 10/05/21 08/18/21 History spironolactone 100 mg tablet 1 tab PO DAILY 08/18/21 10/05/21 08/18/21 History vitamin B complex 1 tab PO DAILY 08/18/21 10/05/21 08/18/21 History tretinoin 0.05 % topical cream 1 applic TOPICAL BEDTIME 09/22/21 10/05/21 Unknown History Physical Exam Vital Signs: Vital Signs: Last Vital Signs Temp 98.6 F 10/06/21 01:00 Pulse 67 10/06/21 08:59 Resp 16 10/06/21 08:59 BP 133/48 L 10/06/21 08:59 Pulse Ox 96 10/06/21 08:59 BMI result Body Mass Index 26.6 Const: General: no acute distress and ill appearing Nutritional Appearance: overweight Orientation/consciousness: patient oriented x3 Limitations: no limitations HENMT: Head: Yes normal to inspection Ears: hearing grossly normal bilaterally Mouth: Normal oral and palatal mucosa present Eyes: Sclerae: sclerae normal Pupils: Equal, round and reactive pupils present Neck: Neck: Yes normal visual inspection Chest: Chest palpation & inspection: normal inspection of the chest Resp: Effort & Inspection: normal respiratory effort Auscultation: clear to auscultation bilaterally Cardio: Palpation: normal PMI Rate: regular rate Rhythm: regular rhythm Heart sounds: S1 normal heart sound present, S2 normal heart sound present and no murmurs GI: Inspection: Yes distended Palpation (GI): Soft to palpation, nontender and No hepatosplenomegaly present Auscultation: normal bowel sounds Rectal Exam - Female: deferred Skin: General skin exam: no rashes or lesions noted Neuro: General: patient oriented x3, gait normal and moves all extremities Cranial nerves: Yes Equal, round and reactive pupils present Psych: Appearance: grossly normal Mental Status: mental status grossly normal Results Labs CBC & Chem 7: 10/06/21 07:37 10/06/21 07:37 Labs: Short CBC 10/05/21 10/06/21 Range/Units 18:52 07:37 WBC 8.3 4.5 L (4.8-10.8) X10*3/uL Hgb 12.4 11.3 L (12.0-16.0) g/dl Hct 36.1 L 32.9 L (37.0-47.0) % Plt Count 99 L D 79 L (160-400) X10*3/uL BMP 10/05/21 10/06/21 18:52 07:37 Sodium 136 136 Potassium 3.9 3.9 Chloride 102 105 Carbon Dioxide 20 L 24 BUN 17 H 16 Creatinine 1.00 0.79 Calcium 8.7 8.3 L Liver Function 10/05/21 Range/Units 18:52 Total Bilirubin 5.2 H (0.0-1.0) mg/dL AST 56 H (5-31) U/L ALT 28 (0-31) U/L Alkaline Phosphatase 125 H (39-117) U/L Albumin 3.0 L (3.5-5.0) g/dL Assessment and Plan (1) Constipation: Status: Resolved (2) Blood per rectum: Status: Resolved (3) Ascites: Qualifiers: Ascites type: other type Qualified Code(s): R18.8 - Other ascites Status: Acute (4) Cirrhosis: Status: Acute Plan 81 YF with aortic stenosis, non alcoholic liver cirrhosis, decompensated with ascites and pleural effusion treated with periodic large volume paracentesis, history of IBS, gastric varices, portal hypertension, who was admitted to [facility] last night with bloody bowel movements for the past 4 days associated with constipation.? Patient is not a good historian and is reluctant to give any details - states all the information is in my chart.? Pt has remained hemodynamically stable. Labs are significant for hemoglobin of 12.4, hematocrit 36.1, stool occult blood positive FU H & H this am is at baseline for the patient. Pt reports having a colonoscopy within the past 1-2 yrs - normal per patient RECOMMENDATIONS: 1. OK to DC home. 2. To contine taking Lactulose for hepatic encephalopathy and Miralax for constipation 3. Pt can FU with her Primary Gastroeneterologist at [facility]. Pt reports she was followed by Dr Porras at [facility] who has retired and she may be following up with Dr Vogt at [facility]. Procedures Date of Service Date of Service: 10/06/21
--- NOTE | 2021-10-06 12:48 | PC.NURSE ---
pt had a large liquid bowel movement. minimal blood in the commode at bedside. pt calm and cooperative, alert and oriented, skin pink warm and dry. pt requesting grilled cheese and chicken broth for lunch. concerned when dr Vogt is going to see her.
[2021-10-06 13:35] VITALS: BP 157/69; PULSE 68; RESP 14; TEMP 36.6; O2SAT 97
--- NOTE | 2021-10-06 14:34 | P.DS_ITS ---
DS: Providers Provider Date of Service: 10/06/21 Date of admission: 10/05/21 21:52 Primary care physician: Hardik Claros MD Consults: 10/05/21 21:52 Consult to Gastroenterology Routine Consulting Provider: Jose Vogt Reason for consultation: gi bleed, requesting to see Dr. Vogt Has provider been notified: No DS: Diagnosis Discharge Diagnosis (1) GI bleed: Status: Acute (2) Constipation: Status: Acute (3) Blood per rectum: Status: Acute DS: Summary Hospital Course Hospital Course: Patient with known cirrhosis of liver, varices and presented with rectal bleed associated with severe constipation, there was little shift in H and H. She was given bowel movment and a had satisfactory bowel regimen and has not had any further bleed and therefore will be discharge with adjustment in bowel regimen. She will continue Lactulose, Miralax. Add Colace 100 mg bid and recommends that she takes high fiber diet. Time Spent with Patient Time attestation: Total time spent providing and/or coordinating discharge services: Discharge coordination time: Greater than 30 minutes Quality: Stroke Does the patient have a stroke diagnosis?: No Physical Exam Vital Signs: Vital Signs: Last Vital Signs Temp 97.8 F 10/06/21 13:35 Pulse 68 10/06/21 13:35 Resp 14 10/06/21 13:35 BP 157/69 H 10/06/21 13:35 Pulse Ox 97 10/06/21 13:35 BMI result Body Mass Index 26.6 DS: Data Data Completed and Pending Completed studies during hospitalization [Text1]: Procedures Drainage of Left Pleural Cavity, Percutaneous Approach (09/21/21) Drainage of Peritoneal Cavity, Percutaneous Approach (08/18/21) Labs on day of discharge: Laboratory Results - last 24 hr 10/05/21 10/05/21 10/05/21 18:51 18:52 18:52 WBC 8.3 RBC 3.49 L Hgb 12.4 Hct 36.1 L MCV 103.4 H MCH 35.5 H MCHC 34.3 RDW 14.8 Plt Count 99 L D MPV 9.8 Immature Gran % (Auto) 0.5 H Neut % (Auto) 66.2 Lymph % (Auto) 19.4 L [place] % (Auto) 10.2 Eos % (Auto) 2.5 Baso % (Auto) 1.2 Lymph # (Auto) 1.6 [place] # (Auto) 0.9 Eos # (Auto) 0.2 Baso # (Auto) 0.1 Abs Immat Gran (auto) 0.04 H Absolute Neuts (auto) 5.5 Absolute Nucleated RBC 0.000 Nucleated RBC % (auto) 0.0 PT 15.5 H INR 1.4 H Sodium 136 Potassium 3.9 Chloride 102 Carbon Dioxide 20 L Anion Gap 18 BUN 17 H Creatinine 1.00 Estim Creat Clear Calc 43.1 Estimated GFR 53 Random Glucose 91 Calcium 8.7 Magnesium 1.9 Total Bilirubin 5.2 H AST 56 H ALT 28 Alkaline Phosphatase 125 H Ammonia Total Protein 6.9 Albumin 3.0 L Stool Occult Blood COVID-19 ([facility]) COVID-19 Clin Com Blood Type Antibody Screen 10/05/21 10/05/21 10/05/21 18:52 19:04 19:04 WBC RBC Hgb Hct MCV MCH MCHC RDW Plt Count MPV Immature Gran % (Auto) Neut % (Auto) Lymph % (Auto) [place] % (Auto) Eos % (Auto) Baso % (Auto) Lymph # (Auto) [place] # (Auto) Eos # (Auto) Baso # (Auto) Abs Immat Gran (auto) Absolute Neuts (auto) Absolute Nucleated RBC Nucleated RBC % (auto) PT INR Sodium Potassium Chloride Carbon Dioxide Anion Gap BUN Creatinine Estim Creat Clear Calc Estimated GFR Random Glucose Calcium Magnesium Total Bilirubin AST ALT Alkaline Phosphatase Ammonia Total Protein Albumin Stool Occult Blood POSITIVE COVID-19 ([facility]) Negative COVID-19 Clin Com See Note Blood Type A Negative Antibody Screen NEGATIVE 10/06/21 10/06/21 10/06/21 07:37 07:37 07:37 WBC 4.5 L RBC 3.21 L Hgb 11.3 L Hct 32.9 L MCV 102.5 H MCH 35.2 H MCHC 34.3 RDW 14.6 Plt Count 79 L MPV 9.7 Immature Gran % (Auto) 0.4 Neut % (Auto) 60.9 Lymph % (Auto) 22.2 [place] % (Auto) 12.3 H Eos % (Auto) 3.5 Baso % (Auto) 0.7 Lymph # (Auto) 1.0 L [place] # (Auto) 0.6 Eos # (Auto) 0.2 Baso # (Auto) 0.0 Abs Immat Gran (auto) 0.02 Absolute Neuts (auto) 2.8 Absolute Nucleated RBC 0.000 Nucleated RBC % (auto) 0.0 PT INR Sodium 136 Potassium 3.9 Chloride 105 Carbon Dioxide 24 Anion Gap 11 L BUN 16 Creatinine 0.79 Estim Creat Clear Calc 54.6 Estimated GFR > 60 Random Glucose 77 Calcium 8.3 L Magnesium Total Bilirubin AST ALT Alkaline Phosphatase Ammonia 43 Total Protein Albumin Stool Occult Blood COVID-19 ([facility]) COVID-19 Clin Com Blood Type Antibody Screen Discharge Plan Discharge Anticipated Discharge Date/Time: 10/06/21 14:26 Patient Disposition: Home, Self-Care Discharge Diagnosis: Rectal bleed likely from Hemorrhoid Referrals: [facility]Outside] - 1 Week Hardik Claros MD [Primary Care Provider] - 1 Week Discharge Medications: New docusate sodium [Colace] 100 mg capsule 100 mg PO BID Qty: 60 0RF Continued vitamin B complex Tablet Extended Release 1 tab PO DAILY 0RF spironolactone 100 mg tablet 1 tab PO DAILY 0RF acetaminophen 500 mg Tablet 500 mg PO Q6H PRN (Reason: Pain (Scale Score 1-3)) 0RF oxycodone 5 mg tablet 5 mg PO Q8H PRN (Reason: pain) Qty: 9 0RF lactulose 10 gram/15 mL solution 30 ml PO BID 0RF multivitamin Tablet 1 tab PO DAILY 0RF alprazolam 0.25 mg Tablet 0.25 mg PO DAILY PRN (Reason: Anxiety) 0RF tretinoin 0.05 % cream 1 applic topical BEDTIME 0RF hydroxyzine HCl 25 mg tablet 1 tab PO TID PRN (Reason: Anxiety) Qty: 15 0RF furosemide 40 mg tablet 40 mg PO DAILY 0RF Discharge Orders: Discharge Order (Routine); Ordered 10/06/21 Ordered By: Kana Gordillo Diet: advance to usual diet Activity on Discharge: As tolerated Stand Alone Forms: Patient Portal Discharge page Care Plan Goals: Prevent rehospitalization for same ccodition of Gi bleed and constipation Health Concerns: Liver cirrhosis, gi bledd Plan of Treatment: Take Mirlax, Lactulose and Colace, follow up with your doctor in a week, c Assessment: As above
== END 2021-10-06 15:32 | disposition home or self-care (01) | DRG 253 ==
LOC: HO.ED 20:39 → HO.EDOVER 22:00
PROVIDERS: Physician Assistant; Admitting Provider Internal Medicine; Emergency Provider Internal Medicine; PCP Internal Medicine; Visit Provider Internal Medicine
DX: K62.5 Hemorrhage of anus and rectum (principal); R18.8 Other ascites; K74.60 Unspecified cirrhosis of liver; K64.9 Unspecified hemorrhoids; K59.00 Constipation, unspecified; Z20.822 Contact with and (suspected) exposure to COVID-19; Z79.899 Other long term (current) drug therapy; Z91.040 Latex allergy status
CPT/HCPCS: 36415; 80048; 80053; 82140; 82272; 83735; 85025; 85610; 86850; 86900; 86901; 87635; 99218; 99285; Q0163

== ENCOUNTER 2021-11-28 11:48 | Outpatient (REF) | payer OTHER, SELFPAY ==
--- NOTE | ~2021-11-28 | US_ITS ---
EXAMINATION: US ABDOMEN LIMITED CLINICAL INFORMATION: Ascites. COMPARISON: CT dated 09/21/2021 TECHNIQUE: Real-time imaging of the peritoneal cavity.. US/US abdomen limited FINDINGS/IMPRESSION: * Moderate volume ascites. Patient refused paracentesis. * Imaged liver is heterogeneous in parenchymal echogenicity with a nodular surface contour compatible with cirrhosis. * Small bilateral pleural effusions.
--- NOTE | ~2021-11-28 | XR_ITS ---
EXAMINATION: XR CHEST CLINICAL INFORMATION: Shortness of breath. COMPARISON: 09/22/2021 TECHNIQUE: 2 views of the chest were obtained. XR/XR chest 2V FINDINGS/IMPRESSION: Small moderate left pleural effusion, with accompanying atelectasis. Trace right pleural effusion. Normal heart size and pulmonary vascularity. No pneumothorax. Aorta is tortuous and atherosclerotic.
== END 2021-11-28 11:49 | disposition home or self-care (01) ==
LOC: HO.XRAY 11:48
PROVIDERS: PCP Internal Medicine; Visit Provider Internal Medicine
DX: R18.8 Other ascites (principal); R06.02 Shortness of breath
CPT/HCPCS: 71046; 76705

== ENCOUNTER → 2021-11-28 12:09 | Day surgery (SDC) | payer OTHER, SELFPAY ==
[2021-11-28 12:22] VITALS: BMI 24.9
[2021-11-28 12:35] LABS: MANUAL DIFF FLAG NO
[2021-11-28 12:39] LABS: Basophils Absolute Auto 0.1 X10*3/uL (0.0-0.2); Eosinophils Absolute Auto 0.1 X10*3/uL (0.0-0.4); Eosinophils Percent Auto 1.4 % (0-4); Hematocrit 36.9 % (37.0-47.0); Hemoglobin 12.6 g/dl (12.0-16.0); Imm Gran Abs Auto 0.02 X10*3/uL (0.00-0.03); Imm Gran Pct Auto 0.3 % (0.0-0.4); Lymphocytes Absolute Auto 0.8 X10*3/uL (1.2-4.9); Lymphocytes Percent Auto 13.7 % (20-40); Mean Corpuscular HGB Conc 34.1 g/dl (31.0-35.0); Mean Corpuscular Volume 105.4 fL (80.0-98.0); Mean Platelet Volume 10.2 fL (9.4-12.3); Monocytes Absolute Auto 0.7 X10*3/uL (0.1-1.2); Monocytes Percent Auto 12.4 % (2-11); Neutrophils Absolute Auto 4.2 x10*3/uL (2.0-8.3); Neutrophils Percent Auto 71.2 % (45-73); Red Cell Distribution Width 14.6 % (11.0-16.0); White Blood Count 5.9 X10*3/uL (4.8-10.8)
[2021-11-28 12:42] LABS: Platelet Count 82 X10*3/uL (160-400)
[2021-11-28 12:46] LABS: INTERNATIONAL NORM RATIO 1.4 (0.9-1.1); Prothrombin Time 16.5 SEC (9.9-13.0)
[2021-11-28 12:49] LABS: Partial Thromboplastin Time 37.3 SEC (24.1-38.0)
--- NOTE | 2021-11-28 12:54 | PC.NURSE ---
pt expressed concern of procedure. pt states she only wants the ultrasound done and no draining, wants to be able to make the decision for procedure at a later time. pt also had CXR this morning for concerns of fluid in lungs and Dr. Claros questioning need of throacentesis also. Namrata Rea, RN at bedside to educate patient about procedures. pt agreeable to ultrasound only.
== END ==
PROVIDERS: PCP Internal Medicine; Visit Provider Radiology Diagnostic Radiology
DX: R18.8 Other ascites (principal); Z53.20 Procedure and treatment not carried out because of patient's decision for unspecified reasons
CPT/HCPCS: 36415; 85025; 85610; 85730

== ENCOUNTER 2022-03-27 13:59 | Outpatient (REF) | payer OTHER, SELFPAY ==
--- NOTE | ~2022-03-27 | XR_ITS ---
EXAMINATION: XR CHEST AND ABDOMEN CLINICAL INFORMATION: Right flank pain. Constipation. COMPARISON: Chest 11/28/2021. TECHNIQUE: Chest 2 views. Abdomen 2 views. FINDINGS: Chest: The lungs are well expanded and clear of acute process. The heart size and pulmonary vascularity is normal. No gross bony abnormality seen. Abdomen: There is scattered stool and gas seen throughout the colon without any significant distention. There are degenerative disc changes with spondylosis L2-L3 through L4-L5 disc levels. No aggressive lytic or sclerotic process seen. XR/XR chest 2V IMPRESSION: Unremarkable chest exam. Unremarkable KUB.
--- NOTE | ~2022-03-27 | XR_ITS ---
EXAMINATION: XR CHEST AND ABDOMEN CLINICAL INFORMATION: Right flank pain. Constipation. COMPARISON: Chest 11/28/2021. TECHNIQUE: Chest 2 views. Abdomen 2 views. FINDINGS: Chest: The lungs are well expanded and clear of acute process. The heart size and pulmonary vascularity is normal. No gross bony abnormality seen. Abdomen: There is scattered stool and gas seen throughout the colon without any significant distention. There are degenerative disc changes with spondylosis L2-L3 through L4-L5 disc levels. No aggressive lytic or sclerotic process seen. XR/XR abdomen min 2V IMPRESSION: Unremarkable chest exam. Unremarkable KUB.
== END 2022-03-27 14:00 | disposition home or self-care (01) ==
LOC: HO.XRAY 13:59
PROVIDERS: PCP Internal Medicine; Visit Provider Internal Medicine
DX: R10.9 Unspecified abdominal pain (principal); K59.00 Constipation, unspecified
CPT/HCPCS: 71046; 74019

== ENCOUNTER 2022-04-26 11:20 | Outpatient (REF) | payer OTHER, SELFPAY ==
--- NOTE | ~2022-04-26 | US_ITS ---
EXAMINATION: US ABDOMEN LIMITED CLINICAL INFORMATION: Ascites check. COMPARISON: Ultrasound abdomen 11/28/2021, CT abdomen and pelvis 09/21/2021. TECHNIQUE: Imaging 4 quadrants of the abdomen is performed using curvilinear transducer. Grayscale imaging and color Doppler are performed. FINDINGS: There is no ascites or loculated fluid collection. The spleen is enlarged measuring 14.2 cm in length. Similar measurement 13.[address] abdomen 09/21/2021. Splenic parenchyma is homogeneous. Splenic contours are smooth. US/US abdomen limited IMPRESSION: -No ascites. -Chronic splenomegaly.
== END 2022-04-26 11:21 | disposition home or self-care (01) ==
LOC: HO.HMGCX 11:20
PROVIDERS: PCP Internal Medicine; Visit Provider Internal Medicine
DX: R18.8 Other ascites (principal)
CPT/HCPCS: 76705

== ENCOUNTER → 2022-05-15 12:53 | Outpatient (REF) | payer OTHER, SELFPAY ==
--- NOTE | 2022-05-15 12:55 | CA_ITS ---
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 Normal LV systolic function with impaired relaxation filling pattern 2. Moderate aortic stenosis 3. Mildly dilated left atrium 4. Normal RV systolic pressure 5. No gross pericardial effusion Findings Left Ventricle Normal left ventricular size, thickness, and systolic function. The visually estimated ejection fraction is between 60-65%. Spectral Doppler is indicative of an impaired relaxation filling pattern. E/E prime ratio is between 8 and 15 consistent with indeterminate filling pressures. Right Ventricle Normal right ventricular cavity size and systolic function. Atria The left atrium is mildly dilated. There is lipomatous hypertrophy of the interatrial septum. There is no evidence of interatrial shunt. The right atrium is normal in size. Aortic Valve There is moderate calcification of the aortic valve. There is mild thickening of the aortic valve. There is moderate aortic valve stenosis. The peak aortic gradient is 47 mmHg.The mean gradient is 26 mmHg. The aortic valve area is 1.29 cm2. There is no aortic valve regurgitation. Mitral Valve There is mild anterior and posterior mitral leaflet thickening. There is mild mitral annular calcification. There is trace mitral valve regurgitation. There is no mitral valve stenosis. Pulmonic Valve The pulmonic valve was not well visualized. There is trace pulmonic valve regurgitation. Tricuspid Valve Normal tricuspid valve structure. There is mild tricuspid valve regurgitation. The right ventricular systolic pressure is normal. The right ventricular systolic pressure is 25 mmHg. Normal right atrial pressure. There is no evidence of pulmonary hypertension. Great Vessels All visible segments of the aorta are normal in size. The pulmonary artery was not well visualized. Venous The inferior vena cava is normal in size and collapses greater than 50% with inspiration. Pericardium/Pleural There is no evidence of pericardial effusion. Prior Study Comparison No significant change compared to prior study. Measurements 2D Linear Measurements IVSd: 1.12 0.6-0.9/0.6-1.0 cm LVIDd: 4.09 3.9-5.3/4.2-5.9 cm LVIDd Index: 2.46 2.4-3.2/2.2-3.1 cm/m2 LVIDs: 2.31 2.0-3.6 cm LVPWd: 1.16 0.7-1.1 cm Ao Root: 2.60 2.1-3.5 cm LA Diam: 4.00 2.7-3.8/3.0-4.0 cm LAIDs Index: 2.41 1.5-2.3 cm/m2 LV Mass: 197.66 67-162/88-224 g LV Mass Index: 119.07 43-95/49-115 g/m2 LVOT Diam: 2.00 3.0+(-)1.3 cm 2D Volumes LA Vol: 42.40 Mitral Valve MV Pk E: 0.71 MV PK A: 0.98 MV Decel Time: 299.00 E/A: 0.70 E'Lateral: 6.96 E'Medial: 5.33 E/E' Med: 13.30 E/E' Lat: 10.20 PHT: 88.00 MVA PHT: 2.50 Decel Saunders: 2.36 Aortic Valve AoV Pk Vignesh: 3.44 AoV Mn Vignesh: 2.34 AoV VTI: 0.84 AoV Pk Grad: 47.00 Aov Mn Grad: 26.00 ANUEL Cont.VTI: 1.29 LVOT LVOT Pk Vignesh: 1.33 LVOT Mn Vignesh: 0.90 LVOT VTI: 0.34 LVOT Pk Grad: 7.00 LVOT Mn Grad: 4.00 LVOT Diam: 2.00 LVOT Area: 3.14 Diastolic Function MV Pk E: 0.71 MV Pk A: 0.98 E/A: 0.70 E'Medial: 5.33 E/E' Med: 13.30 E' Laterial: 6.96 E/E' Lat: 10.20 Right Ventricle TAPSE (mm): 28.00 TVS' Vignesh: 14.00 Tricuspid Valve TR Pk Vignesh: 2.36 TR Pk Grad: 22.00 RA Press: 3.00 RVSP: 25.00 Great Vessels Aorta Ao Root-2D: 2.60 2.0-3.7 cm Ao Asc: 3.10 2.1-3.4 cm Pulmonary Valve PV Pk Vignesh: 1.84 Peak PV Grad: 14.00 Updated in Other Vendor System with Status of Final Arjun Quinones MD electronically signed on 05/16/2022 4:29:25 PM with status of Final
== END ==
LOC: HO.CARD 12:53
PROVIDERS: PCP Internal Medicine; Visit Provider Internal Medicine Cardiovascular Disease
DX: I35.0 Nonrheumatic aortic (valve) stenosis (principal)
CPT/HCPCS: 93306